=== PATIENT | male | born 1970 | race Caucasian/White ===

== ENCOUNTER 2022-01-18 15:58 | Emergency (ER) | payer OTHER ==
[~2022-01-18] VITALS: Ht 177.8 cm; Wt 113.0 kg
[2022-01-18 16:06] VITALS: BP 116/78
== END 2022-01-18 20:21 | disposition left against medical advice (07) ==
LOC: EDBD 15:58 → ER 16:02
DX: F41.9 Anxiety disorder, unspecified (principal); Z53.21 Procedure and treatment not carried out due to patient leaving prior to being seen by health care provider

== ENCOUNTER 2022-06-20 12:43 | Inpatient (IN) | payer OTHER, MEDICAID ==
[~2022-06-20] VITALS: Ht 182.9 cm; Wt 93.9 kg
[2022-06-20 14:03] LABS: Basophils # (auto) 0.1 10 ^3/uL (0-0.2); Basophils % (auto) 0.8 % (0.0-2.0); Eosinophils # (auto) 0.3 10 ^3/uL (0-0.8); Eosinophils % (auto) 2.7 % (0.0-7.0); Hematocrit 47.1 % (41.0-53.0); Hemoglobin 16.2 g/dL (13.5-17.5); Lymphocytes % (auto) 31.5 % (10.0-50.0); Mean Corpuscular Hemoglobin 33.9 pg (28.0-32.0); Mean Corpuscular Hgb Conc. 34.3 g/dL (32.0-36.0); Mean Corpuscular Volume 98.6 fL (80.0-100.0); Monocytes # (auto) 0.9 10 ^3/uL (0-1.3); Monocytes % (auto) 9.3 % (0.0-12.0); Neutrophils # (auto) 5.3 10 ^3/uL (1.6-8.6); Neutrophils % (auto) 55.7 % (37.0-80.0); Nucleated Red Blood Cells % 0.1 %; Red Blood Cells 4.78 10^6/uL (4.5-5.90); Red Cell Distribution Width 13.3 % (11.8-14.3); White Blood Cell 9.6 10^3/uL (4.4-10.8)
[2022-06-20 14:20] LABS: Albumin 3.8 g/dL (3.4-5.0); Calcium 11.6 mg/dL (8.5-10.1); Potassium 4.1 mmol/L (3.5-5.1)
[2022-06-20 14:23] LABS: BUN/Creatinine Ratio 15.8; Bilirubin, Total 0.5 mg/dL (0.2-1.0); Total Protein 6.5 g/dL (6.4-8.2)
[2022-06-20] MEDS ORDERED: NALOXONE HCL 1MG/ML 2ML SYRINGE ONE ×2 (14:48→17:28)
[2022-06-20] MEDS ORDERED: NALOXONE HCL 0.4 MG/ML VIAL IV ONE ×3 (15:00→17:30)
[2022-06-20] MEDS ORDERED: NALOXONE HCL 2 MG in DEXTROSE 495 ML IV ONE ×2 (17:45→20:30)
[2022-06-20 17:46] LABS: Amphetamine Screen, Urine NEGATIVE (NEGATIVE); Barbiturate Scree,Urine NEGATIVE (NEGATIVE); Benzodiazephine Screen, Urine POSITIVE (NEGATIVE); Cannabinoid Screen, Urine NEGATIVE (NEGATIVE)
[2022-06-20 17:53] LABS: Cocaine Screen, Urine NEGATIVE (NEGATIVE); Opiate Scree,Urine POSITIVE (NEGATIVE); Phencyclidine Screen, Urine NEGATIVE (NEGATIVE)
[2022-06-20 17:58] LABS: Urine Bacteria NONE SEEN /hpf (None Seen); Urine Blood Negative /uL (Negative); Urine Hyaline Cast FEW /lpf (0 - 2); Urine Mucus FEW (None Seen); Urine Specific Gravity 1.019 (1.001-1.035); Urine WBC 1 /hpf (0 - 3)
[2022-06-20] MEDS ORDERED: NALOXONE HCL 1MG/ML 2ML SYRINGE IV ONE (18:00)
[2022-06-20] MEDS ORDERED: ONDANSETRON HCL 4 MG/2 ML VIAL IV PRN (21:00)
[2022-06-20] MEDS ORDERED: hydrALAZINE HCL 20 MG/ML VL IV PRN (21:00)
[2022-06-20 22:04] LABS: Albumin 3.6 g/dL (3.4-5.0); Calcium 11.3 mg/dL (8.5-10.1)
[2022-06-20 22:07] LABS: Basophils # (auto) 0.1 10 ^3/uL (0-0.2); Basophils % (auto) 0.5 % (0.0-2.0); Eosinophils # (auto) 0.3 10 ^3/uL (0-0.8); Eosinophils % (auto) 2.3 % (0.0-7.0); Hematocrit 46.7 % (41.0-53.0); Hemoglobin 15.9 g/dL (13.5-17.5); Lymphocytes # (auto) 2.8 10 ^3/uL (0.4-5.4); Mean Corpuscular Hemoglobin 33.7 pg (28.0-32.0); Mean Corpuscular Hgb Conc. 33.9 g/dL (32.0-36.0); Mean Corpuscular Volume 99.2 fL (80.0-100.0); Monocytes # (auto) 1.1 10 ^3/uL (0-1.3); Monocytes % (auto) 8.7 % (0.0-12.0); Neutrophils # (auto) 8.4 10 ^3/uL (1.6-8.6); Neutrophils % (auto) 66.5 % (37.0-80.0); Nucleated Red Blood Cells % 0.2 %; Red Blood Cells 4.71 10^6/uL (4.5-5.90); Red Cell Distribution Width 13.9 % (11.8-14.3); White Blood Cell 12.6 10^3/uL (4.4-10.8)
[2022-06-20 22:08] LABS: BUN/Creatinine Ratio 14.9
[2022-06-20 22:11] LABS: INR 0.97 (0.9-1.15)
[2022-06-20 22:21] LABS: Bilirubin, Total 0.5 mg/dL (0.2-1.0); Total Protein 6.7 g/dL (6.4-8.2)
[2022-06-20] MEDS: SODIUM CHLORIDE 0.9% 1,000 ML IV SCH (23:48)
[2022-06-21] MEDS ORDERED: NALOXONE HCL 1MG/ML 2ML SYRINGE ONE ×2 (00:02→02:52)
[2022-06-21] MEDS: NALOXONE HCL 2 MG in DEXTROSE 495 ML IV SCH ×3 (00:19→03:10)
[2022-06-21] MEDS ORDERED: D5W 5% IV ONE ×3 (00:30→08:00)
[2022-06-21] MEDS ORDERED: ACETYLCYSTEINE IV ONE ×3 (00:30→08:00)
[2022-06-21 06:52] LABS: Calcium 10.7 mg/dL (8.5-10.1); Potassium 3.7 mmol/L (3.5-5.1)
[2022-06-21 06:54] LABS: BUN/Creatinine Ratio 13.6; Bilirubin, Total 0.7 mg/dL (0.2-1.0)
[2022-06-21] MEDS: SODIUM CHLORIDE 0.9% 1,000 ML IV SCH (07:00)
[2022-06-21] MEDS: levoFLOXacin 500MG 100 ML IV SCH (09:43)
[2022-06-21] MEDS: D5W/LACTATED RINGERS 1,000 ML IV SCH ×2 (14:15→22:15)
[2022-06-21] MEDS: D5W/SOD CHLO 0.9% 1,000 ML IV SCH ×2 (15:27→23:00)
[2022-06-21 17:47] LABS: Calcium 11.1 mg/dL (8.5-10.1); Potassium 3.6 mmol/L (3.5-5.1)
[2022-06-21 17:49] LABS: Albumin 3.1 g/dL (3.4-5.0); BUN/Creatinine Ratio 15.9
[2022-06-21 17:50] LABS: Acetaminophen < 2.0 ug/mL (10-30); Salicylate 6.6 mg/dL (2.8-20.0)
[2022-06-21 17:53] LABS: Bilirubin, Total 0.8 mg/dL (0.2-1.0); Total Protein 6.2 g/dL (6.4-8.2)
[2022-06-22] MEDS: D5W/LACTATED RINGERS 1,000 ML IV SCH (06:15)
[2022-06-22 06:39] LABS: Basophils # (auto) 0.1 10 ^3/uL (0-0.2); Eosinophils # (auto) 0.3 10 ^3/uL (0-0.8); Monocytes # (auto) 0.6 10 ^3/uL (0-1.3)
[2022-06-22 06:43] LABS: Basophils % (auto) 1.1 % (0.0-2.0); Eosinophils % (auto) 3.9 % (0.0-7.0); Hemoglobin 15.2 g/dL (13.5-17.5); Lymphocytes # (auto) 1.8 10 ^3/uL (0.4-5.4); Lymphocytes % (auto) 25.7 % (10.0-50.0); Mean Corpuscular Hemoglobin 34.5 pg (28.0-32.0); Mean Corpuscular Hgb Conc. 35.2 g/dL (32.0-36.0); Mean Corpuscular Volume 97.8 fL (80.0-100.0); Monocytes % (auto) 8.7 % (0.0-12.0); Neutrophils # (auto) 4.3 10 ^3/uL (1.6-8.6); Neutrophils % (auto) 60.6 % (37.0-80.0); Nucleated Red Blood Cells % 0.2 %; Red Cell Distribution Width 13.4 % (11.8-14.3); White Blood Cell 7.1 10^3/uL (4.4-10.8)
[2022-06-22] MEDS: D5W/SOD CHLO 0.9% 1,000 ML IV SCH ×3 (06:52→21:42)
[2022-06-22 06:59] LABS: Albumin 3.2 g/dL (3.4-5.0); Potassium 3.5 mmol/L (3.5-5.1)
[2022-06-22 07:03] LABS: BUN/Creatinine Ratio 15.4; Bilirubin, Total 0.6 mg/dL (0.2-1.0); Calcium 10.4 mg/dL (8.5-10.1)
[2022-06-22] MEDS: levoFLOXacin 500MG 100 ML IV SCH (08:35)
[2022-06-22] MEDS: GABAPENTIN 300 MG CAP PO SCH ×2 (14:00→21:41)
[2022-06-22] MEDS: traMADol HCL 50 MG TAB PO PRN ×2 (14:01→20:24)
[2022-06-22] MEDS: CELECOXIB 100 MG CAP PO SCH (21:41)
[2022-06-22 23:26] VITALS: BP 123/74
[2022-06-22] MEDS ORDERED: TRAZ50TA2 PO (23:53)
[2022-06-22] MEDS ORDERED: SERT50TA19 PO (23:54)
[2022-06-22] MEDS ORDERED: ASPI-498 OR (23:55)
[2022-06-22] MEDS ORDERED: NITR0.4S29 SL (23:56)
[2022-06-22] MEDS ORDERED: IBUP800T26 PO (23:57)
[2022-06-22] MEDS ORDERED: HYDR50TA69 PO (23:57)
[2022-06-22] MEDS ORDERED: OXYC-963 (23:57)
[2022-06-23] MEDS: GABAPENTIN 300 MG CAP PO SCH ×2 (05:00→14:10)
[2022-06-23 06:38] LABS: Potassium 3.7 mmol/L (3.5-5.1)
[2022-06-23 06:49] LABS: Albumin 3.2 g/dL (3.4-5.0); BUN/Creatinine Ratio 13.6; Bilirubin, Total 0.6 mg/dL (0.2-1.0); Calcium 10.7 mg/dL (8.5-10.1); Total Protein 5.6 g/dL (6.4-8.2)
[2022-06-23 09:00] VITALS: BP 140/83
[2022-06-23] MEDS: CELECOXIB 100 MG CAP PO SCH (09:47)
[2022-06-23] MEDS ORDERED: ENOXAPARIN SOD 40 MG/0.4 ML SYRINGE SC SCH (10:00)
[2022-06-23] MEDS ORDERED: DULoxetine HCL 30 MG CAP PO SCH (10:00)
[2022-06-23] MEDS ORDERED: FAMOTIDINE 20 MG TAB PO SCH (10:00)
[2022-06-23] MEDS ORDERED: CITALOPRAM HYDROBR 20 MG TAB PO SCH (10:00)
[2022-06-23] MEDS: traMADol HCL 50 MG TAB PO PRN (14:10)
[2022-06-23] MEDS: D5W/SOD CHLO 0.9% 1,000 ML IV SCH (14:11)
[2022-06-23] MEDS ORDERED: GABA300C10 PO (14:37)
[2022-06-23] MEDS ORDERED: IBUP800T26 PO (14:37)
[2022-06-23] MEDS ORDERED: SERT50TA19 PO (14:37)
[2022-06-23 19:39] VITALS: BP 111/74
== END 2022-06-23 20:45 | disposition home or self-care (01) | DRG 917 ==
LOC: ER 12:43 → EDBD 12:43 → TELE 21:15 → TELE-CENTR 06-22 21:25
PROVIDERS: ADMIT Nurse Practitioner Family; ATTEND Hospitalist
DX: T40.2X1A Poisoning by other opioids, accidental (unintentional), initial encounter (principal); G92.9 Unspecified toxic encephalopathy; E78.5 Hyperlipidemia, unspecified; I10 Essential (primary) hypertension; Z20.822 Contact with and (suspected) exposure to COVID-19; F32.A Depression, unspecified; G62.9 Polyneuropathy, unspecified; G89.29 Other chronic pain; I44.0 Atrioventricular block, first degree; Y92.89 Other specified places as the place of occurrence of the external cause
CPT/HCPCS: 36415; 70450; 71045; 72125; 80053; 80307; 80320; 80329; 81001; 82140; 82550; 83605; 84484; 85025; 85610; 87426; 93005; 93306; 96365; 96376; 99291; G0378; J1956; J7042; J7060

== ENCOUNTER 2022-09-06 10:27 | Emergency (ER) | payer OTHER, MEDICAID ==
[~2022-09-06] VITALS: Ht 180.3 cm; Wt 93.1 kg
[~2022-09-06 10:27] MED LIST: ASPI-498 OR; GABA300C10 PO; IBUP800T26 PO; OXYC-963; SERT50TA19 PO; TRAZ50TA2 PO
[2022-09-06 12:08] LABS: Basophils # (auto) 0.1 10 ^3/uL (0-0.2); Eosinophils # (auto) 0 10 ^3/uL (0-0.8); Eosinophils % (auto) 0.2 % (0.0-7.0); Hemoglobin 16.6 g/dL (13.5-17.5); Lymphocytes # (auto) 1.8 10 ^3/uL (0.4-5.4)
[2022-09-06 12:10] LABS: Basophils % (auto) 0.4 % (0.0-2.0); Hematocrit 46.2 % (41.0-53.0); Lymphocytes % (auto) 13.9 % (10.0-50.0); Mean Corpuscular Hemoglobin 34.7 pg (28.0-32.0); Mean Corpuscular Volume 96.4 fL (80.0-100.0); Monocytes # (auto) 0.4 10 ^3/uL (0-1.3); Monocytes % (auto) 3.3 % (0.0-12.0); Neutrophils # (auto) 10.5 10 ^3/uL (1.6-8.6); Neutrophils % (auto) 82.2 % (37.0-80.0); Nucleated Red Blood Cells % 1.1 %; Red Blood Cells 4.79 10^6/uL (4.5-5.90); Red Cell Distribution Width 13.8 % (11.8-14.3); White Blood Cell 12.8 10^3/uL (4.4-10.8)
[2022-09-06 12:23] LABS: Albumin 4.1 g/dL (3.4-5.0); Anion Gap 4 (5-15); Blood Alcohol < 3.0 mg/dL (0-5); Blood Urea Nitrogen 13 mg/dL (7-18); Calcium 11.9 mg/dL (8.5-10.1); Carbon Dioxide 25 mmol/L (21-32); Chloride 108 mmol/L (98-107); Glucose 101 mg/dL (74-106); Potassium 3.8 mmol/L (3.5-5.1); Sodium 137 mmol/L (136-145)
[2022-09-06 12:25] LABS: Salicylate 8.1 mg/dL (2.8-20.0)
[2022-09-06 12:27] LABS: Alanine Aminotransferase 32 U/L (16-61); Alkaline Phosphatase 94 U/L (45-117); Aspartate Aminotransferase 17 U/L (15-37); BUN/Creatinine Ratio 11.2 (10.0-20.0); Bilirubin, Total 0.8 mg/dL (0.2-1.0); GFR African American 85 mL/min; GFR Non-African American 70 mL/min; Total Protein 7.9 g/dL (6.4-8.2)
[2022-09-06 12:28] LABS: Acetaminophen < 2.0 ug/mL (10-30)
[2022-09-06 14:09] LABS: Urine Bacteria MANY /hpf (None Seen); Urine Blood Negative /uL (Negative); Urine Mucus FEW (None Seen); Urine Specific Gravity 1.014 (1.001-1.035); Urine Sperm PRESENT /hpf (None Seen); Urine WBC 24 /hpf (0 - 3)
[2022-09-06 14:38] LABS: Alcohol, Urine < 3.0 mg/dL (0-10); Amphetamine Screen, Urine NEGATIVE (NEGATIVE); Barbiturate Scree,Urine NEGATIVE (NEGATIVE); Benzodiazephine Screen, Urine NEGATIVE (NEGATIVE); Cannabinoid Screen, Urine NEGATIVE (NEGATIVE)
[2022-09-06 14:47] LABS: Cocaine Screen, Urine NEGATIVE (NEGATIVE); Opiate Scree,Urine POSITIVE (NEGATIVE); Phencyclidine Screen, Urine NEGATIVE (NEGATIVE)
[2022-09-06] MEDS ORDERED: cefTRIAXone SOD 1,000 MG VL IM ONE (17:45)
[2022-09-06 20:35] VITALS: BP 119/94
[2022-09-06] MEDS ORDERED: SERT50TA19 PO (20:40)
[2022-09-06] MEDS ORDERED: MIRT1TAB PO (20:40)
[2022-09-06] MEDS ORDERED: BUSP10TA90 PO (20:40)
[2022-09-06] MEDS ORDERED: MIRTAZAPINE 30 MG TAB PO ONE (22:00)
[2022-09-06] MEDS ORDERED: busPIRone HCL 10 MG TAB PO SCH (22:00)
== END 2022-09-06 20:57 | disposition home or self-care (01) ==
LOC: ER 10:27 → EDBD 10:27 → ER 20:57
DX: R45.851 Suicidal ideations (principal); F32.9 Major depressive disorder, single episode, unspecified; F41.9 Anxiety disorder, unspecified; R94.31 Abnormal electrocardiogram [ECG] [EKG]
CPT/HCPCS: 36415; 80053; 80307; 80320; 80329; 81001; 85025; 93005; 96372; 99284; J0696

== ENCOUNTER 2022-09-08 08:55 | Emergency (ER) | payer OTHER, MEDICAID ==
[~2022-09-08] VITALS: Ht 175.3 cm; Wt 100.0 kg
[~2022-09-08 08:55] MED LIST changes: +BUSP10TA90 PO; +MIRT1TAB PO
[2022-09-08 09:56] LABS: Amphetamine Screen, Urine NEGATIVE (NEGATIVE); Barbiturate Scree,Urine NEGATIVE (NEGATIVE); Benzodiazephine Screen, Urine NEGATIVE (NEGATIVE); Cannabinoid Screen, Urine NEGATIVE (NEGATIVE); Cocaine Screen, Urine NEGATIVE (NEGATIVE); Opiate Scree,Urine NEGATIVE (NEGATIVE); Phencyclidine Screen, Urine NEGATIVE (NEGATIVE)
[2022-09-08 10:23] LABS: Urine Bacteria FEW /hpf (None Seen); Urine Blood Negative /uL (Negative); Urine Hyaline Cast FEW /lpf (0 - 2); Urine Mucus FEW (None Seen); Urine Specific Gravity 1.021 (1.001-1.035); Urine WBC 17 /hpf (0 - 3)
[2022-09-08 10:34] LABS: Basophils # (auto) 0.1 10 ^3/uL (0-0.2); Eosinophils # (auto) 0.2 10 ^3/uL (0-0.8); Monocytes # (auto) 1.1 10 ^3/uL (0-1.3); Monocytes % (auto) 8.7 % (0.0-12.0); Neutrophils # (auto) 8.8 10 ^3/uL (1.6-8.6); Nucleated Red Blood Cells % 0.2 %
[2022-09-08 10:38] LABS: Basophils % (auto) 0.5 % (0.0-2.0); Eosinophils % (auto) 1.2 % (0.0-7.0); Hematocrit 46.3 % (41.0-53.0); Hemoglobin 16.6 g/dL (13.5-17.5); Lymphocytes # (auto) 2.7 10 ^3/uL (0.4-5.4); Lymphocytes % (auto) 21.3 % (10.0-50.0); Mean Corpuscular Hemoglobin 35.2 pg (28.0-32.0); Mean Corpuscular Hgb Conc. 35.9 g/dL (32.0-36.0); Mean Corpuscular Volume 97.9 fL (80.0-100.0); Neutrophils % (auto) 68.3 % (37.0-80.0); Red Blood Cells 4.73 10^6/uL (4.5-5.90); Red Cell Distribution Width 13.9 % (11.8-14.3); White Blood Cell 12.8 10^3/uL (4.4-10.8)
[2022-09-08 11:32] LABS: Potassium 3.4 mmol/L (3.5-5.1)
[2022-09-08 11:46] LABS: Salicylate 9.5 mg/dL (2.8-20.0)
[2022-09-08 11:56] LABS: Acetaminophen < 2.0 ug/mL (10-30)
[2022-09-08 12:09] LABS: Albumin 4.7 g/dL (3.4-5.0); Bilirubin, Total 0.7 mg/dL (0.2-1.0); Calcium 12.3 mg/dL (8.5-10.1); Total Protein 8.2 g/dL (6.4-8.2)
[2022-09-09] MEDS ORDERED: LORazepam 0.5 MG TAB PO ONE (05:45)
[2022-09-09] MEDS: LORazepam 0.5 MG TAB PO PRN ×2 (10:12→20:35)
[2022-09-09] MEDS: SERTRALINE HCL 50 MG TAB PO SCH (10:12)
[2022-09-09] MEDS ORDERED: KETOROLAC TROMETH 60MG/2ML VIAL IM ONE (10:15)
[2022-09-09] MEDS ORDERED: traZODone HCL 50 MG TAB PO ONE (22:00)
[2022-09-10] MEDS ORDERED: HYDROcodone-ACET 10/325MG TAB PO ONE (04:30)
[2022-09-10] MEDS ORDERED: ONDANSETRON ODT 4 MG TAB PO ONE (04:30)
[2022-09-10] MEDS: LORazepam 0.5 MG TAB PO PRN (09:02)
[2022-09-10] MEDS: SERTRALINE HCL 50 MG TAB PO SCH (10:57)
[2022-09-10] MEDS ORDERED: OXYCODONE W/ ACETAMINOPHEN 5/325MG TABLET PO ONE (15:00)
[2022-09-10 15:13] VITALS: BP 121/85
== END 2022-09-10 16:58 | disposition short-term general hospital (02) ==
LOC: EDBD 08:55 → ER 08:55
DX: F32.9 Major depressive disorder, single episode, unspecified (principal); F41.9 Anxiety disorder, unspecified; Z88.6 Allergy status to analgesic agent; Z79.899 Other long term (current) drug therapy
CPT/HCPCS: 36415; 80053; 80307; 80329; 81001; 84439; 84443; 85025; 96372; 99285; J1885; Q0162

== ENCOUNTER 2022-12-15 18:14 | Emergency (ER) | payer OTHER, MEDICAID ==
[~2022-12-15] VITALS: Ht 172.7 cm; Wt 113.0 kg
[~2022-12-15 18:14] MED LIST changes: +GABA-1250 PO; -GABA300C10 PO; +IBUP-1455 PO; -IBUP800T26 PO; +SERT-206 PO; -SERT50TA19 PO; +TRAZ-227 PO; -TRAZ50TA2 PO
[2022-12-16] MEDS ORDERED: KETOROLAC TROMETH 60MG/2ML VIAL IM ONE (02:30)
[2022-12-16] MEDS ORDERED: NAP500T PO (02:34)
[2022-12-16 02:38] VITALS: BP 118/72; PULSE 86; RESP 17; TEMP 98; O2SAT 98
== END 2022-12-16 03:10 | disposition home or self-care (01) ==
LOC: EDBD 18:14 → ER 18:14
DX: M72.2 Plantar fascial fibromatosis (principal); F41.9 Anxiety disorder, unspecified; F32.9 Major depressive disorder, single episode, unspecified; M10.9 Gout, unspecified; Z79.1 Long term (current) use of non-steroidal anti-inflammatories (NSAID); Z79.82 Long term (current) use of aspirin; Z79.899 Other long term (current) drug therapy
CPT/HCPCS: 36415; 84550; 96372; 99283; J1885

== ENCOUNTER 2023-04-19 13:56 | Emergency (ER) | payer OTHER, MEDICAID ==
[~2023-04-19] VITALS: Ht 180.3 cm; Wt 93.0 kg
[~2023-04-19 13:56] MED LIST changes: +NAP500T PO
[2023-04-19 14:37] LABS: Basophils # (auto) 0.1 10 ^3/uL (0-0.2); Eosinophils # (auto) 0.1 10 ^3/uL (0-0.8); Hemoglobin 16.1 g/dL (13.5-17.5); Monocytes # (auto) 0.5 10 ^3/uL (0-1.3); Neutrophils # (auto) 5.5 10 ^3/uL (1.6-8.6)
[2023-04-19 14:39] LABS: Eosinophils % (auto) 1.4 % (0.0-7.0); Hematocrit 45.7 % (41.0-53.0); Lymphocytes # (auto) 2.2 10 ^3/uL (0.4-5.4); Mean Corpuscular Hemoglobin 35.3 pg (28.0-32.0); Mean Corpuscular Hgb Conc. 35.2 g/dL (32.0-36.0); Monocytes % (auto) 6.1 % (0.0-12.0); Neutrophils % (auto) 65.5 % (37.0-80.0); Red Blood Cells 4.57 10^6/uL (4.5-5.90); Red Cell Distribution Width 12.9 % (11.8-14.3); White Blood Cell 8.3 10^3/uL (4.4-10.8)
[2023-04-19 15:00] LABS: Alanine Aminotransferase 32 U/L (7-40); Albumin 4.7 g/dL (3.2-4.8); Alkaline Phosphatase 49 U/L (46-116); Anion Gap 5 (5-15); Aspartate Aminotransferase 24 U/L (13-40); Bilirubin, Total 0.3 mg/dL (0.2-1.0); Blood Urea Nitrogen 15 mg/dL (9-23); Calcium 10.9 mg/dL (8.7-10.4); Carbon Dioxide 23 mmol/L (20-30); Chloride 108 mmol/L (98-107); Glucose 235 mg/dL (74-106); Potassium 3.7 mmol/L (3.5-5.1); Sodium 136 mmol/L (136-145); Total Protein 6.9 g/dL (5.7-8.2)
[2023-04-19] MEDS ORDERED: ONDANSETRON HCL 4 MG/2 ML VIAL IV ONE (15:30)
[2023-04-19 20:54] LABS: Urine Bacteria NONE SEEN /hpf (None Seen); Urine Blood 3+ /uL (Negative); Urine Clarity Clear (Clear); Urine Color Yellow (Yellow); Urine Hyaline Cast FEW /lpf (0 - 2); Urine Mucus FEW (None Seen); Urine Protein, UAD TRACE (Negative); Urine Specific Gravity 1.022 (1.001-1.035); Urine WBC 11 /hpf (0 - 3)
[2023-04-19] MEDS ORDERED: KETOROLAC TROMETH 30 MG/ML 1ML VIAL IV ONE (21:00)
[2023-04-19 21:08] VITALS: PULSE 69; RESP 18; O2SAT 97
[2023-04-19 22:27] VITALS: BP 115/53; PULSE 67; RESP 18; TEMP 98.8; O2SAT 97
== END 2023-04-20 00:02 | disposition short-term general hospital (02) ==
LOC: ER 13:56 → EDBD 13:56 → ER 04-20 00:02
DX: N13.30 Unspecified hydronephrosis (principal); R10.9 Unspecified abdominal pain; I10 Essential (primary) hypertension; F41.9 Anxiety disorder, unspecified; F32.9 Major depressive disorder, single episode, unspecified; M10.9 Gout, unspecified; E78.5 Hyperlipidemia, unspecified; F17.210 Nicotine dependence, cigarettes, uncomplicated; Z98.890 Other specified postprocedural states; Z79.899 Other long term (current) drug therapy
CPT/HCPCS: 36415; 74176; 80053; 81001; 85025; 96374; 96375; 99285; J1885; J2405

== ENCOUNTER 2023-08-30 11:00 | Emergency (ER) | payer OTHER, MEDICAID ==
[~2023-08-30] VITALS: Ht 175.3 cm; Wt 118.0 kg
[2023-08-30] MEDS: ALBUTEROL SULF 2.5 MG/0.5ML(0.5%) NEB SOLN HHN ONE (11:48)
[2023-08-30] MEDS: IPRATROPIUM BROM 0.5 MG/2.5ML INH SOL HHN ONE (11:48)
[2023-08-30 12:00] LABS: Basophils # (auto) 0.1 10 ^3/uL (0-0.2); Eosinophils # (auto) 0.3 10 ^3/uL (0-0.8); Lymphocytes # (auto) 1.9 10 ^3/uL (0.4-5.4); Monocytes # (auto) 0.7 10 ^3/uL (0-1.3)
[2023-08-30 12:02] LABS: Eosinophils % (auto) 3.2 % (0.0-7.0); Hematocrit 46.3 % (41.0-53.0); Hemoglobin 16.5 g/dL (13.5-17.5); Lymphocytes % (auto) 20.9 % (10.0-50.0); Mean Corpuscular Hemoglobin 35.7 pg (28.0-32.0); Mean Corpuscular Hgb Conc. 35.5 g/dL (32.0-36.0); Mean Corpuscular Volume 100.3 fL (80.0-100.0); Monocytes % (auto) 7.6 % (0.0-12.0); Neutrophils # (auto) 6.3 10 ^3/uL (1.6-8.6); Neutrophils % (auto) 67.3 % (37.0-80.0); Red Blood Cells 4.62 10^6/uL (4.5-5.90); Red Cell Distribution Width 13.4 % (11.8-14.3); White Blood Cell 9.3 10^3/uL (4.4-10.8)
[2023-08-30 12:15] LABS: Alanine Aminotransferase 42 U/L (7-40); Albumin 4.7 g/dL (3.2-4.8); Alkaline Phosphatase 56 U/L (46-116); Anion Gap 3 (5-15); Aspartate Aminotransferase 30 U/L (13-40); BUN/Creatinine Ratio 6.9 (10.0-20.0); Bilirubin, Total 0.3 mg/dL (0.2-1.0); Blood Urea Nitrogen 8 mg/dL (9-23); Calcium 11.6 mg/dL (8.5-10.1); Carbon Dioxide 28 mmol/L (20-30); Chloride 110 mmol/L (98-107); Glucose 130 mg/dL (74-106); Potassium 4.2 mmol/L (3.5-5.1); Sodium 141 mmol/L (136-145)
[2023-08-30] MEDS: methylPREDNISolone SOD SUCC 125 MG/2 ML VL ONE (12:42)
[2023-08-30] MEDS: methylPREDNISolone SOD SUCC 125 MG/2 ML VL IV ONE (12:43)
[2023-08-30] MEDS ORDERED: ALBUTEROL SULF 2.5 MG/0.5ML(0.5%) NEB SOLN NEB SCH ×2 (16:00→18:00)
[2023-08-30] MEDS ORDERED: IPRATROPIUM BROM 0.5 MG/2.5ML INH SOL NEB SCH ×2 (16:00→18:00)
[2023-08-30] MEDS: levoFLOXacin 500MG 100 ML IV ONE (16:46)
[2023-08-30 18:47] VITALS: PULSE 96; RESP 16; O2SAT 96
[2023-08-30 18:55] VITALS: BP 145/90; PULSE 100; RESP 20; TEMP 98.9; O2SAT 98
[2023-08-31] MEDS ORDERED: levoFLOXacin 500MG 100 ML IV SCH (10:00)
== END 2023-08-30 18:40 | disposition short-term general hospital (02) ==
LOC: EDBD 11:00 → ER 11:00
DX: J96.20 Acute and chronic respiratory failure, unspecified whether with hypoxia or hypercapnia (principal); J44.1 Chronic obstructive pulmonary disease with (acute) exacerbation; E78.5 Hyperlipidemia, unspecified; I10 Essential (primary) hypertension
CPT/HCPCS: 36415; 71045; 80053; 83880; 85025; 93005; 94644; 96365; 96375; 99285; J1956; J2930

== ENCOUNTER 2024-04-13 16:41 | Inpatient (IN) | payer OTHER, MEDICAID ==
[~2024-04-13] VITALS: Ht 177.8 cm; Wt 120.9 kg
--- NOTE | 2024-04-13 17:23 | ED.PDOC ---
Psychiatric HPI Comments 53y M who presents to the ED via EMS for chief complaint of mental health. Pt states he recently has been stressed due to girlfriend having cancer and states he is suicidal. Pt states he is having thoughts telling him to hurt himself. Pt told EMS "I will overdose on pills." Pt states he has previous suicidal attempt with prior inpatient psychiatric hospitalization. Pt denies any active homicidal ideations at this time. Pt has past psychiatric history of depression and anxiety.Pt noted to be tearful in the ED. Pt otherwise denies any other symptoms at this time. Chief Complaint: Suicidal Time Seen by MD: 17:20 Primary Care Provider: " I DON'T HAVE ONE" Reviewed Notes: [employer] Garment [employer]er Notes Information Source: Patient Mode of Arrival: EMS Past Medical History PAST MEDICAL HISTORY: Anxiety, Asthma, Depression, Gout, High Lipids, HTN, Kidney Stones, Thyroid Surgical History: Unknown Family History Family History: Family hx of Cancer Social History Smoker: Cigarettes Alcohol: Denies ETOH Use Drugs: Denies Drug Use Lives In: Home Constitutional: denies: chills, diaphoresis, fatigue, fever, malaise, sweats, weakness, others EENTM: denies: blurred vision, double vision, ear bleeding, ear discharge, ear drainage, ear pain, ear ringing, eye pain, eye redness, hearing loss, mouth pain, mouth swelling, nasal discharge, nose bleeding, nose congestion, nose pain, photophobia, tearing, throat pain, throat swelling, voice changes, others Respiratory: denies: cough, hemoptysis, orthopnea, SOB at rest, shortness of breath, SOB with excertion, stridor, wheezing, others Cardiovascular: denies: chest pain, dizzy spells, diaphoresis, Dyspnea on exertion, edema, irregular heart beat, left arm pain, lightheadedness, palpitations, PND, syncope, others Gastrointestinal: denies: abdomen distended, abdominal pain, blood streaked bowels, constipated, diarrhea, dysphagia, difficulty swallowing, hematemesis, melena, nausea, poor appetite, poor fluid intake, rectal bleeding, rectal pain, vomiting, others Genitourinary: denies: burning, dysuria, flank pain, frequency, hematuria, incontinence, penile discharge, penile sore, pain, testicle pain, testicle swelling, urgency, others Neurological: denies: dizziness, fainting, headache, left sided numbness, left sided weakness, numbness, paresthesia, pre-existing deficit, right sided numbness, right sided weakness, seizure, speech problems, tingling, tremors, we akness, others Musculoskeletal: denies: back pain, gout, joint pain, joint swelling, muscle pain, muscle stiffness, neck pain, others Integumetry: denies: bruises, change in color, change in hair/nails, dryness, laceration, lesions, lumps, rash, wounds, others Allergic/Immunocompromised: denies: Difficulty Healing, Frequent Infections, Hives, Itching, others Hematologic/Lymphatic: denies: anemia, blood clots, easy bleeding, easy bruising, swollen glands, others Endocrine: denies: excessive hunger, excessive sweating, excessive thirst, excessive urination, flushing, intolerance to cold, intolerance to heat, unexplained weight gain, unexplained weight loss, others Psychiatric: reports: suicidal; denies: anxiety, bipolar disorder, depression, hopeless, panic disorder, schizophrenia, sleepless, others All Other Systems: Reviewed and Negative Physical Exam General Appearance: No Apparent Distress, Obese HEENT: Normal ENT Inspection, Pharynx Normal, TMs Normal Neck: Full Range of Motion, Non-Tender, Normal, Normal Inspection Respiratory: Chest Non-Tender, Lungs Clear, No Accessory Muscle Use, No Respiratory Distress, Normal Breath Sounds Cardiovascular: No Edema, No JVD, No Murmur, No Gallop, Normal Peripheral Pulses, Regular Rate/Rhythm Breast Exam: Deferred Gastrointestinal: No Organomegaly, Non Tender, No Pulsatile Mass, Normal Bowel Sounds, Soft Genitalia: Epididymis Pelvic: Deferred Rectal: Deferred Extremities: No calf tenderness, Normal capillary refill, Normal inspection, Normal range of motion, Non-tender, No pedal edema Neurologic: Alert, Depressed Affect, No Motor Deficits, No Sensory Deficits Cerebellar Function: Normal Reflexes: Normal Skin: Dry, Normal Color, Warm Peripheral Pulses: 1+ carotid (R), 1+ carotid (L) Lymphatic: No Adenopathy Was a procedure done? Was a procedure done?: No Psych Differential Dx Psych. Differential Dx: Depression, Hopeless, Suicidal OD Differential Dx: Suicidal Gesture Other Differentail Dx drug use X-Ray, Labs, Meds, VS Vital Signs Date Time Temp Pulse Resp B/P (MAP) Pulse Ox O2 Delivery O2 Flow Rate FiO2 04/14/24 11:25 97.7 74 16 125/81 (96) 93 97.7 04/14/24 07:50 74 16 93 Room Air* 0 04/13/24 21:40 Room Air* 0 04/13/24 21:38 97.9 74 18 111/67 (82) 93 97.9 04/13/24 17:07 98.6 124 16 88/0 (29) 94 Lab Test 04/13/24 17:52 Range/Units White Blood Count 10.8 4.4-10.8 10^3/uL Red Blood Count 4.99 4.5-5.90 10^6/uL Hemoglobin 17.6 H 13.5-17.5 g/dL Hematocrit 49.8 41.0-53.0 % Mean Corpuscular Volume 99.7 80.0-100.0 fL Mean Corpuscular Hemoglobin 35.3 H 28.0-32.0 pg Mean Corpuscular Hemoglobin Concent 35.4 32.0-36.0 g/dL Red Cell Distribution Width 13.4 11.8-14.3 % Platelet Count 345 140-450 10^3/uL Mean Platelet Volume 7.6 6.9-10.8 fL Neutrophils (%) (Auto) 63.7 37.0-80.0 % Lymphocytes (%) (Auto) 25.6 10.0-50.0 % Monocytes (%) (Auto) 7.6 0.0-12.0 % Eosinophils (%) (Auto) 2.0 0.0-7.0 % Basophils (%) (Auto) 1.1 0.0-2.0 % Neutrophils # (Auto) 6.9 1.6-8.6 10 ^3/uL Lymphocytes # (Auto) 2.8 0.4-5.4 10 ^3/uL Monocytes # (Auto) 0.8 0-1.3 10 ^3/uL Eosinophils # (Auto) 0.2 0-0.8 10 ^3/uL Basophils # (Auto) 0.1 0-0.2 10 ^3/uL Nucleated Red Blood Cells 0.1 % Sodium Level 138 136-145 mmol/L Potassium Level 4.4 3.5-5.1 mmol/L Chloride Level 104 98-107 mmol/L Carbon Dioxide Level 26 20-31 mmol/L Anion Gap 8 5-15 Blood Urea Nitrogen 14 9-23 mg/dL Creatinine 1.29 0.700-1.30 mg/dL Glomerular Filtration Rate Calc 66 >90 mL/min BUN/Creatinine Ratio 10.9 10.0-20.0 Serum Glucose 128 H 74-106 mg/dL Calcium Level 13.2 *H 8.7-10.4 mg/dL Salicylates Level < 3.0 -30 mg/dL Acetaminophen Level < 2.0 L 10.0-20.0 UG/ML Plasma/Serum Blood Alcohol 3.6 <10 mg/dL Current Medications Medications (Trade) Dose Ordered Sig/Iftikhar Route Start Time Stop Time Status Last Admin Ketorolac Tromethamine (Toradol Injection) 60 mg ONCE ONCE IM 04/14/24 08:45 04/14/24 08:46 DC 04/14/24 08:49 Sodium Chloride 1,000 ml @ 1,000 mls/hr Q1H ONCE IVB 04/14/24 12:30 04/14/24 13:29 DC 04/14/24 14:33 Hydrocortisone Sodium Succinate (Solu-CORTEF INJECTION) 100 mg ONCE ONCE IV 04/14/24 12:30 04/14/24 12:31 DC 04/14/24 14:32 X-Ray, Labs, Meds, VS Comment Course in the emergency department eventful patient came in because of depression stress over her his girlfriend having cancer and suicidal ideation CBC is normal Acetaminophen level and salicylate level negative ETOH 3.6 Calcium 13.2 very elevated patient has been evaluated by Dr. Tamayo the psychiatrist who put him on a 5150 At this time the patient can not be transferred because of the hypercalcemia So we will keep the patient in the emergency department while correcting the calcium level Time of 1ST Reevaluation: 17:50 Reevaluation 1ST: Unchanged Time of 2ND Reevaluation: 12:30 Reevaluation 2ND: Unchanged Patient Education/Counseling: Diagnosis, Treatment Family Education/Counseling: No Family Present Departure 1 Departure Time of Disposition: 12:32 Impression: Primary Impression: Major depression Additional Impressions: Suicidal ideation Hypercalcemia Disposition: 30 STILL A PATIENT Condition: Serious Critical Care Note Critical Care Time?: No Stability Stability form required: Yes Comments Patient not stable at this time for transfer to a psychiatric hospital Heart Score Heart Score: Heart Score Response (Comments) Value History N/A 0 EKG N/A 0 Age 45-64 1 Risk Factors 1 or 2 risk factors 1 Troponin N/A 0 Total 2 I personally scribed for SHEREE LAWTON MD ([email or web address]) on 04/13/24 at 17:23. Electronically submitted by Remington Monk ([facility]). SHEREE LAWTON MD Apr 13, 2024 17:23 SANTIAGO BEARD MD Apr 14, 2024 12:33
[2024-04-13 18:29] LABS: Chloride 104 mmol/L (98-107); Potassium 4.4 mmol/L (3.5-5.1); Sodium 138 mmol/L (136-145)
[2024-04-13 18:30] LABS: Anion Gap 8 (5-15); Carbon Dioxide 26 mmol/L (20-31)
[2024-04-13 18:31] LABS: Basophils # (auto) 0.1 10 ^3/uL (0-0.2); Eosinophils # (auto) 0.2 10 ^3/uL (0-0.8); Hemoglobin 17.6 g/dL (13.5-17.5); Lymphocytes # (auto) 2.8 10 ^3/uL (0.4-5.4); Lymphocytes % (auto) 25.6 % (10.0-50.0); Monocytes # (auto) 0.8 10 ^3/uL (0-1.3); Nucleated Red Blood Cells % 0.1 %; Red Cell Distribution Width 13.4 % (11.8-14.3)
[2024-04-13 18:33] LABS: Basophils % (auto) 1.1 % (0.0-2.0); Hematocrit 49.8 % (41.0-53.0); Mean Corpuscular Hemoglobin 35.3 pg (28.0-32.0); Mean Corpuscular Hgb Conc. 35.4 g/dL (32.0-36.0); Mean Corpuscular Volume 99.7 fL (80.0-100.0); Monocytes % (auto) 7.6 % (0.0-12.0); Neutrophils # (auto) 6.9 10 ^3/uL (1.6-8.6); Neutrophils % (auto) 63.7 % (37.0-80.0); Platelet Count (auto) 345 10^3/uL (140-450); Red Blood Cells 4.99 10^6/uL (4.5-5.90); White Blood Cell 10.8 10^3/uL (4.4-10.8)
[2024-04-13 18:35] LABS: BUN/Creatinine Ratio 10.9 (10.0-20.0); Blood Alcohol 3.6 mg/dL (<10); Blood Urea Nitrogen 14 mg/dL (9-23); Glucose 128 mg/dL (74-106)
[2024-04-13 18:38] LABS: Acetaminophen < 2.0 UG/ML (10.0-20.0)
[2024-04-13 18:58] LABS: Calcium 13.2 mg/dL (8.7-10.4)
[2024-04-13 19:00] LABS: Salicylate < 3.0 mg/dL (-30)
--- NOTE | 2024-04-14 00:06 | DVHINCON2 ---
Date of Service if different f: Apr 14, 2024 Time of Service: 00:05 Consult Consult Note PSYCHIATRY ED NEW CONSULT HPI: 53 yo pt with PPH of depression and anxiety presents to ED BIBA for safety, psychiatric stabilization and possible med initiation/optimization in setting of depression, anxiety, and passive SI. Psychiatry consulted for safety evaluation and recommendations in context of current presentation Per pt, reports hx of chronic depression often mixed with anxiety, over past several weeks experiencing worsening depressed mood, hopelessness, helplessness, negative thoughts, isolation, loss of interest, excessive guilt, decreased energy, difficulty with concentration, poor sleep, anhedonia, amotivation and non-specific anxiety symptoms. Also intermittent SI that are fleeting, earlier had plan to OD on pills although no intent. Reports some interference with daily functioning. Reports primary stress as recent cancer dx of GF. No overt manic, psychotic, cognitive, dissociative phenomena, panic, or somatic symptoms noted. Pt currently does not have psychiatrist/therapist out in community although has sought outpt services in past. Currently not on any psychotropic agents for past several weeks due to "I lost my meds". Most recently rx'd abilify, effexor. Denies self medicating mood symptoms with ETOH, THC or IDU Never , no children, unemployed, lives with friend, no legal issues, limited support system noted. Unknown trauma hx. Unknown FH. No acute medical issues although complains of diffuse body aches. Denies hx of seizures/TBI, or recent head injuries, NKDA Does have hx of suicide attempts resulting in prior psych hospitalizations including most recent several weeks ago for SI. Denies history of violence, unprovoked aggression, or assaultive behaviors. Denies recent hx of impulsivity, attention seeking behaviors, anger outbursts, emotional dysregulation, mood reactivity or engaging in risky behaviors. Does not have access to firearms. Currently endorses passive SI. Denies HI. MSE: General Appearance/Behavior: Alert and awake; appears stated age, overweight, fair grooming and hygiene; calm and cooperative, no PMA/PMR Speech: coherent, rrr Thought Process: linear, logical, bit hopeless Thought Content: Abnormal Thoughts and Perceptions: None Homicidality / Violent Thoughts: None Suicidality: passive SI Hallucinations: denies AVH Delusions: denies paranoia, persecutory, or grandiose delusions Obsessions /compulsions : None Judgment and Insight: fair judgment with fair insight Mood & Affect: "depressed" with mood-congruent, constricted/restricted, appropriate Orientation: oriented to person, place, time Attention/Concentration: appears intact Memory: grossly intact Language: no unusual or inappropriate language A/P: 53 yo pt with PPH of depression and anxiety presents to ED BIBA for safety, psychiatric stabilization and possible med initiation/optimization in setting of depression, anxiety, and passive SI Pt is currently expressing some SI with moderate interference in daily functioning in context of several recent life stressors. Limited protective factors presently. Not on any psychotropics for past several which maybe contributing to current symptoms. No outpt MH services at present. Pt agrees to talk with staff instead of acting on any suicidal feelings while in ED. Thus, ac bashir risk is moderate and hence is appropriate for inpatient psychiatry admission. Pt will benefit from inpatient psych admission for safety, psychiatric stabilization and possible medication re-initiation. Pt willing to transfer to inpt psych hospitalization voluntarily. Consider 5150 hold for DTS only if needed for transfer or if no voluntary beds are available Primary Diagnosis: Adjustment disorder with depressed mood. Depressive disorder unspecified. R/o MDD, moderate Recommend vol transfer to inpt psych facility for higher level of care 1:1 sitter is recommended Recommend continuation of previous outpt med regimen - Abilify 5 mg po QD and Venlafaxine XR 150 mg QD - first dose of both meds in AM Risks/benefits/alternative treatments discussed, informed consent provided by pt If patient later refuses voluntary hospitalization or if no voluntary beds are available, please reconsult telepsych services to evaluate for 5150 hold. Reconsult telepsych services if pt requests to be discharged from ED prior to transfer Pt verbalized understanding and is receptive to above tx plan This case was discussed with ED nurse/provider and all parties in agreement with above tx plan Leonardo Khan MD Plan discussed with: Patient LEONARDO KHAN MD Apr 14, 2024 00:06
[2024-04-14 07:50] VITALS: PULSE 74; RESP 16; O2SAT 93
[2024-04-14] MEDS: VENLAFAXINE HCL 37.5mg XR cap PO ONE (08:42)
[2024-04-14] MEDS: KETOROLAC TROMETH 60MG/2ML VIAL IM ONE (08:49)
[2024-04-14] MEDS ORDERED: ONDANSETRON HCL 4 MG/2 ML VIAL IV PRN (13:15)
[2024-04-14] MEDS ORDERED: MAALOX PLUS or MAALOX 30 ML PO PRN (13:15)
[2024-04-14] MEDS ORDERED: HALOPERIDOL LACTATE 5 MG/ML INJ VIAL IM PRN (13:15)
[2024-04-14] MEDS ORDERED: TEMAZEPAM 15 MG CAP PO PRN (13:15)
[2024-04-14] MEDS ORDERED: NAPROXEN 500 MG TAB PO PRN (13:15)
[2024-04-14] MEDS: SODIUM CHLORIDE 0.9% 1,000 ML IV SCH (13:15)
--- NOTE | 2024-04-14 13:50 | DVH ---
CHEST RADIOGRAPH Indication: chest veiw Technique: Single frontal view of the chest was obtained COMPARISON: XY CHEST XRAY 1 VIEW on DOS: 08/30/23, CHEST XRAY 1 VIEW on DOS: 06/20/22, CXR1 on DOS: 06/20 FINDINGS: Lines and Tubes: None Lungs: Clear Pleura: No effusion. No pneumothorax. Cardiomediastinal contours: Unremarkable Bones: Unremarkable IMPRESSION: No acute disease.
--- NOTE | 2024-04-14 14:06 | DVHHP2 ---
History of Present Illness Reason for Visit: hypercalcemia History of Present Illness 53 yo came to the ed initially for the evaluation for SI patient was evaluated and seen by Psych patient was recommended for further evaluation with lab abnormalities showing hypercalcemia Review of Systems Constitutional: Yes: Weakness; No: Fever, Chills, Sweats, Malaise, Other Eyes: No: Pain, Vision change, Conjunctivae inflammation, Eyelid inflammation, Other, Redness ENT: No: Ear pain, Ear discharge, Nose pain, Nose discharge, Nose congestion, Mouth pain, Mouth swelling, Throat pain, Throat swelling, Other Respiratory: No: Cough, Dry, Shortness of breath, SOB with excertion, Wheezing, Hemoptysis, Pleuritic Pain, Sputum, Wheezing, Other Cardiovascular: No: Chest Pain, Palpitations, Orthopnea, Paroxysmal Noc. Dyspnea, Edema, Lt Headedness, Other Gastrointestinal: Abdominal Pain; No: Nausea, Vomiting, Diarrhea, Constipation, Melena, Hematochezia, Other Genitourinary: No Dysuria, No Frequency, No Incontinence, No Hematuria, No Retention, No Other Musculoskeletal: No: other, neck pain, shoulder pain, arm pain, back pain, hand pain, leg pain, foot pain Skin: No: Rash, Lesions, Jaundice, Bruising, Other Neurological: No: Weakness, Numbness, Incoordination, Change in speech, Confusion, Seizures, Other Allergies: Coded Allergies: No Known Drug Allergy (Verified Allergy, Unknown, 01/18/22) Medications Current Medications Medications Dose Ordered Sig/Iftikhar Route Start Time Stop Time Status Last Admin Dose Admin Haloperidol Lactate 5 mg Q8HPRN PRN IM 04/14/24 13:15 Sodium Chloride 1,000 ml @ 150 mls/hr Q6H40M IV 04/14/24 13:15 Venlafaxine HCl 150 mg DAILY PO 04/15/24 10:00 UNV Calcitonin Jackson 200 unit DAILY NA 04/14/24 13:15 UNV Lorazepam 0.5 mg Q6HP PRN PO 04/14/24 13:15 Al Hydrox/Mg Hydrox/Simethicone 30 ml Q6HP PRN PO 04/14/24 13:15 Docusate Sodium 100 mg BIDPRN PRN PO 04/14/24 13:15 Acetaminophen 650 mg Q6HP PRN PO 04/14/24 13:15 Temazepam 15 mg QHSP PRN PO 04/14/24 13:15 UNV Acetaminophen/ Hydrocodone Bitart 1 tab Q4HP PRN PO 04/14/24 13:15 Ondansetron HCl 4 mg Q4HP PRN IV 04/14/24 13:15 Morphine Sulfate 2 mg Q4HPRN PRN IV 04/14/24 13:15 Aspirin 81 mg DAILY PO 04/15/24 10:00 Buspirone HCl 10 mg BID PO 04/14/24 22:00 Gabapentin 300 mg TID PO 04/14/24 14:00 Naproxen 500 mg BID PRN PO 04/14/24 13:15 UNV Sertraline HCl 50 mg DAILY PO 04/15/24 10:00 UNV Trazodone HCl 50 mg DAILY PO 04/15/24 10:00 UNV Patient Own Medication 7.5 mg HS PO 04/14/24 22:00 UNV Exam Vital Signs Vital Signs Date Time Temp Pulse Resp B/P (MAP) Pulse Ox O2 Delivery O2 Flow Rate FiO2 04/14/24 11:25 97.7 74 16 125/81 (96) 93 97.7 04/14/24 07:50 Room Air* 0 21 General Appearance: Alert, Oriented X3 HEENT: Atraumatic Respiratory: Clear to auscultation, Normal air movement Cardiovascular: Regular rate, Normal S1 Abdominal: Normal bowel sounds, Soft Extremities: No clubbing, No cyanosis Skin: No rashes, No breakdown Neuro: Normal gait, Normal speech Psych/Mental Status: Mood NL Labs/Xrays Labs Test 04/13/24 17:52 Range/Units White Blood Count 10.8 4.4-10.8 10^3/uL Red Blood Count 4.99 4.5-5.90 10^6/uL Hemoglobin 17.6 H 13.5-17.5 g/dL Hematocrit 49.8 41.0-53.0 % Mean Corpuscular Volume 99.7 80.0-100.0 fL Mean Corpuscular Hemoglobin 35.3 H 28.0-32.0 pg Mean Corpuscular Hemoglobin Concent 35.4 32.0-36.0 g/dL Red Cell Distribution Width 13.4 11.8-14.3 % Platelet Count 345 140-450 10^3/uL Mean Platelet Volume 7.6 6.9-10.8 fL Neutrophils (%) (Auto) 63.7 37.0-80.0 % Lymphocytes (%) (Auto) 25.6 10.0-50.0 % Monocytes (%) (Auto) 7.6 0.0-12.0 % Eosinophils (%) (Auto) 2.0 0.0-7.0 % Basophils (%) (Auto) 1.1 0.0-2.0 % Neutrophils # (Auto) 6.9 1.6-8.6 10 ^3/uL Lymphocytes # (Auto) 2.8 0.4-5.4 10 ^3/uL Monocytes # (Auto) 0.8 0-1.3 10 ^3/uL Eosinophils # (Auto) 0.2 0-0.8 10 ^3/uL Basophils # (Auto) 0.1 0-0.2 10 ^3/uL Nucleated Red Blood Cells 0.1 % Sodium Level 138 136-145 mmol/L Potassium Level 4.4 3.5-5.1 mmol/L Chloride Level 104 98-107 mmol/L Carbon Dioxide Level 26 20-31 mmol/L Anion Gap 8 5-15 Blood Urea Nitrogen 14 9-23 mg/dL Creatinine 1.29 0.700-1.30 mg/dL Glomerular Filtration Rate Calc 66 >90 mL/min BUN/Creatinine Ratio 10.9 10.0-20.0 Serum Glucose 128 H 74-106 mg/dL Calcium Level 13.2 *H 8.7-10.4 mg/dL Salicylates Level < 3.0 -30 mg/dL Acetaminophen Level < 2.0 L 10.0-20.0 UG/ML Plasma/Serum Blood Alcohol 3.6 <10 mg/dL Assessment/Plan Assessment/Plan Admit Med/surge Hypercalcemia unknown source Calcemia > 13 Calcitonin single dose ordered repeat labs in the am SI r/o psych issues as related to electrolyte changes Depression SI Haldol prn q8 if needed for agitation Plan discussed with: Patient My Orders Orders - MELISSA CASTILLO MD Procedure Category Date Status Time Chest Xray 1 View XY 04/14/24 Logged 13:01 Haloperidol Lactate PHA 04/14/24 In Process Injection (Haldol) 13:15 Sodium Chloride 0.9% PHA 04/14/24 In Process 13:15 Venlafaxine PHA 04/15/24 Logged Hydrochloride 10:00 Calcitonin Nasal PHA 04/14/24 Logged [place] (Fortical Nasal 13:15 Admit ADMIT 04/14/24 Transmitted 13:01 Code Status CODE 04/14/24 Transmitted 13:01 Vital Signs LIDA 04/14/24 In Process 13:01 Review Orders With [facility] 04/14/24 In Process Adm. 13:01 Lorazepam Tablet PHA 04/14/24 In Process (Ativan Tablet) 13:15 Alum & Mag PHA 04/14/24 In Process Hydrox-Simethicone 13:15 Docusate Sodium PHA 04/14/24 In Process Capsule (Colace 13:15 Acetaminophen Tablet PHA 04/14/24 In Process (Tylenol Tablet) 13:15 Temazepam (Restoril) PHA 04/14/24 Logged 13:15 Notify Md Of Changes LIDA 04/14/24 In Process From Base 13:01 Advance Directive LIDA 04/14/24 In Process 13:01 Basic Metabolic Panel LAB 04/15/24 Verified 04:00 Complete Blood Count LAB 04/15/24 Verified 04:00 Patient Condition ORDERS 04/14/24 Transmitted 13:01 Allergies LIDA 04/14/24 In Process 13:01 Hydrocodone-Acet PHA 04/14/24 In Process 5/325mg Tab ([place] 13:15 Ondansetron Hcl PHA 04/14/24 In Process (Zofran) 13:15 Morphine Sulfate PHA 04/14/24 In Process Injection 13:15 Notify Md Of Changes [facility] 04/14/24 In Process From Base 13:01 Oxygen By Nasal RT 04/14/24 Transmitted Cannula 13:01 Aspirin Enteric PHA 04/15/24 In Process Coated Tablet 10:00 Buspirone Hcl Tablet PHA 04/14/24 In Process (Buspar Tablet) 22:00 Gabapentin Capsule PHA 04/14/24 In Process (Neurontin Capsule) 14:00 Naproxen Tablet PHA 04/14/24 Logged (Naprosyn Tablet) 13:15 Sertraline Hcl PHA 04/15/24 Logged (Zoloft) 10:00 Trazodone Hcl PHA 04/15/24 Logged (Desyrel) 10:00 (Nf) Mirtazapine PHA 04/14/24 Logged (Mirtazapine Oral 22:00 Problem List: (1) Hypercalcemia (2) Major depression (3) Suicidal ideation Date of Service: Apr 14, 2024 Billing Provider: MELISSA CASTILLO MD Common Visit Codes: [id number] INP/OBS CARE (HIGH) MELISSA CASTILLO MD Apr 14, 2024 14:06
[2024-04-14] MEDS: GABAPENTIN 300 MG CAP PO SCH (14:23)
[2024-04-14] MEDS ORDERED: CALCITONIN 400unit/2ml Vial (200unit/ml) SC ONE (14:30)
[2024-04-14] MEDS: HYDROCORTISONE SOD SUCC 100 MG/2ML INJ VIAL IV ONE (14:32)
[2024-04-14] MEDS: SODIUM CHLORIDE 0.9% 1,000 ML IVB ONE (14:33)
[2024-04-14] MEDS: CALCITONIN 400unit/2ml Vial (200unit/ml) SC ONE (14:56)
[2024-04-14] MEDS: MORPHINE SULFATE INJ 2 MG/ml SYRG IV PRN (16:43)
[2024-04-14] MEDS: LORazepam 0.5 MG TAB PO PRN (17:25)
[2024-04-14] MEDS: HYDROcodone-ACET 5/325MG TAB PO PRN (19:41)
[2024-04-14] MEDS: MIRTAZAPINE 30 MG TAB PO SCH (22:33)
[2024-04-14] MEDS: busPIRone HCL 10 MG TAB PO SCH (22:33)
[2024-04-14] MEDS: traZODone HCL 50 MG TAB PO SCH (22:33)
[2024-04-15 07:00] LABS: Basophils # (auto) 0.1 10 ^3/uL (0-0.2); Basophils % (auto) 0.8 % (0.0-2.0); Eosinophils # (auto) 0.2 10 ^3/uL (0-0.8); Hemoglobin 16.8 g/dL (13.5-17.5); Lymphocytes # (auto) 3.3 10 ^3/uL (0.4-5.4); Mean Corpuscular Hemoglobin 34.7 pg (28.0-32.0); Mean Corpuscular Hgb Conc. 35.1 g/dL (32.0-36.0); Monocytes # (auto) 0.8 10 ^3/uL (0-1.3); Neutrophils # (auto) 7.2 10 ^3/uL (1.6-8.6); Neutrophils % (auto) 62.2 % (37.0-80.0); Platelet Count (auto) 315 10^3/uL (140-450); Red Blood Cells 4.85 10^6/uL (4.5-5.90); Red Cell Distribution Width 13.4 % (11.8-14.3); White Blood Cell 11.6 10^3/uL (4.4-10.8)
[2024-04-15 07:02] LABS: Chloride 110 mmol/L (98-107)
[2024-04-15 07:07] LABS: Carbon Dioxide 22 mmol/L (20-31)
[2024-04-15 07:09] LABS: Calcium 11.4 mg/dL (8.7-10.4)
[2024-04-15 07:11] LABS: Blood Urea Nitrogen 18 mg/dL (9-23)
[2024-04-15 07:14] LABS: Glucose 99 mg/dL (74-106)
[2024-04-15 08:00] VITALS: PULSE 84; RESP 18; O2SAT 93
[2024-04-15 08:39] LABS: Anion Gap 10 (5-15); Sodium 142 mmol/L (136-145)
[2024-04-15] MEDS: VENLAFAXINE HCL 37.5mg XR cap PO SCH (09:51)
[2024-04-15] MEDS: ASPirin-EC 81 mg tab PO SCH (09:52)
[2024-04-15] MEDS: SERTRALINE HCL 50 MG TAB PO SCH (09:52)
--- NOTE | 2024-04-15 17:31 | DVHPNRES ---
Progress Note Date Seen: Apr 15, 2024 Resident Creating Document: ELIESER GUEVARABLANCA RESIDENT Medical Necessity Reason Pt with a Central, PICC or Fol: No Subjective Review of Systems Patient is a 53-year-old male with a past medical history of chronic depression and anxiety was brought to the ED for having suicidal ideation. Patient reports that for the past several weeks he was been experiencing worsening depression with depressed mood, anhedonia, sleep disturbances, loss of interest difficulty concentration. Patient reports that his recently liver cancer which acted as trigger for his worsening depression. Patient reported that he had intermittent suicidal ideation with plan to OD on pills although he was not that intent. Patient does not have any lopez symptoms. Patient reported that he does not have a psychiatrist but his primary care doctor is at the [facility]. Patient reported that he lost his medications Abilify and venlafaxine several weeks ago and has not been taking any depression medication since then. Past medical history: Chronic depression and anxiety Past surgical history: None reported Social history: Denies smoking, alcohol, drug use Home medication: Clonidine 0.1 mg, aspirin 81 mg, trazodone, atorvastatin 40 mg Review of systems Patient seen and examined at the bedside. Patient is alert and oriented to time, place and person. In the morning patient was agitated and did not want to talk. During the evening rounds patient's mood was better and he explained his current illness. Patient at this time did not have any suicidal ideation, reported that he feels anxious and was mood is depressed since past few weeks. Urine drug screen was negative. CBC showed WBC at 11.6, BMP showed elevated calcium and low phosphorus. Patient reported diffuse abdominal pain, bilateral lower extremity pain and tingling. Reported mild headache. No shortness of breath, no weakness, no chest pain, no nausea, vomiting, diarrhea. Objective vital signs Vital Sign Date Time Temp Pulse Resp B/P (MAP) Pulse Ox O2 Delivery O2 Flow Rate FiO2 04/15/24 16:50 70 16 130/82 04/15/24 16:00 95 04/15/24 08:00 Room Air* 0 21 04/15/24 08:00 97.7 97.7 Total Intake and Output 04/14/24 04/14/24 04/15/24 15:00 23:00 07:00 Intake Total 100 ml Balance 100 ml medications Current Medications Medications Dose Ordered Sig/Iftikhar Route Start Time Stop Time Status Last Admin Dose Admin Haloperidol Lactate 5 mg Q8HPRN PRN IM 04/14/24 13:15 Sodium Chloride 1,000 ml @ 150 mls/hr Q6H40M IV 04/14/24 13:15 04/15/24 17:00 150 MLS/HR Venlafaxine HCl 150 mg DAILY PO 04/15/24 10:00 04/15/24 09:51 150 MG Lorazepam 0.5 mg Q6HP PRN PO 04/14/24 13:15 04/15/24 09:08 0.5 MG Al Hydrox/Mg Hydrox/Simethicone 30 ml Q6HP PRN PO 04/14/24 13:15 Docusate Sodium 100 mg BIDPRN PRN PO 04/14/24 13:15 Acetaminophen 650 mg Q6HP PRN PO 04/14/24 13:15 Temazepam 15 mg QHSP PRN PO 04/14/24 13:15 Acetaminophen/ Hydrocodone Bitart 1 tab Q4HP PRN PO 04/14/24 13:15 04/14/24 19:41 1 TAB Ondansetron HCl 4 mg Q4HP PRN IV 04/14/24 13:15 Morphine Sulfate 2 mg Q4HPRN PRN IV 04/14/24 13:15 04/15/24 15:20 2 MG Aspirin 81 mg DAILY PO 04/15/24 10:00 04/15/24 09:52 81 MG Buspirone HCl 10 mg BID PO 04/14/24 22:00 04/15/24 09:52 10 MG Gabapentin 300 mg TID PO 04/14/24 14:00 04/15/24 14:16 300 MG Naproxen 500 mg BID PRN PO 04/14/24 13:15 Sertraline HCl 50 mg DAILY PO 04/15/24 10:00 04/15/24 09:52 50 MG Trazodone HCl 50 mg HS PO 04/14/24 22:00 04/14/24 22:33 50 MG Mirtazapine 7.5 mg HS PO 04/14/24 22:00 04/14/24 22:33 7.5 MG Examination Physical Examination Gen - no pallor, no icterus, no cyanosis, no clubbing, no LAD, no edema . Skin - Patients skin is warm and dry. Soles of feet have blackened tissue HEENT - normocephalic, atraumatic, dry mucous membranes. Neck - full ROM, no LAD, no JVD Pulmonary - B/L vesicular breath sounds. no crackles , no wheezing, no stridor. cardiovascular - normal S1,S2 heard. no murmurs heard. peripheral pulses normal radial 2+, pedal 2+. capillary refill normal <2 secs. GI - soft abdomen without tenderness to palpation . no hepatospleenomegaly. Bowel sounds normoactive Neurological - Patient is A/O X 3 . Bilateral upper extremity strength 5/5, bilateral lower extremity strength 5/5, no facial droop, normal speech, no tremor, no sensory deficiets. Patient reports depressed mood with anhedonia, sleep disturbances, agitation, anxiety, no current suicidal ideation. laboratory and microbiology Laboratory Tests 04/15/24 06:32 Test 04/15/24 06:32 Range/Units Serum Glucose 99 74-106 mg/dL Problem List/Assessment/Plan Problem List/Assessment/Plan Assessment and plan # Chronic depression with suicidal ideation - tele psych consulted who recommended - voluntary transfer to inpatient psych facility for higher level of care - 1:1 sitter is recommended - Recommend continuation of previous outpt med regimen - Abilify 5 mg po QD and Venlafaxine XR 150 mg QD - first dose of both meds in AM - Abilify not available in the hospital so patient was put on olanzapine 5 mg p.o. q.d. # Hypercalcemia - calcium 13.2--> 11.4 - phosphorus 1.3 - PTH pending - vitamin-D pending - patient given calcitonin 400 unit once - on IV fluids # history of recently diagnosed type 2 diabetes mellitus - blood glucose level within normal - patient on Accu-Checks # peripheral neuropathy - on gabapentin 300 mg t.i.d. Goals of care discussed with the patient for over 25 minutes. Full code Plan discussed with Dr. Weiss Plan discussed with: Patient My Orders My Orders Orders - SUMIT GUEVARA RESIDENT Procedure Category Date Status Time Vitamin D, 25-Hydroxy LAB 04/15/24 In Process 09:10 Urinalysis LAB 04/15/24 Logged 12:56 Drug Screen LAB 04/15/24 Logged 12:56 Olanzapine Tablet PHA 04/16/24 Verified (Zyprexa Tablet) 10:00 Date of Service: Apr 15, 2024 Billing Provider: KARINA LOPEZ MD Common Visit Codes: [id number] INP/OBS CARE(HIGH) SUMIT GUEVARA RESIDENT Apr 15, 2024 17:31 KARINA LOPEZ MD Apr 16, 2024 09:08
[2024-04-15 17:43] LABS: Urine Bacteria None Seen /hpf (None Seen)
[2024-04-15 18:06] LABS: Amphetamine Screen, Urine Neg (NEGATIVE); Barbiturate Scree,Urine Neg (NEGATIVE); Benzodiazephine Screen, Urine Neg (NEGATIVE); Cocaine Screen, Urine Neg (NEGATIVE); Urine Amorphous Crystal FEW /hpf (None Seen); Urine Blood Negative /uL (Negative); Urine Clarity Clear (Clear); Urine Color Light-Yellow (Yellow); Urine Protein, UAD Negative (Negative); Urine Specific Gravity 1.011 (1.001-1.035); Urine Urobilinogen 2 mg/dL (Negative); Urine WBC 1 /hpf (0 - 3)
[2024-04-15 18:07] LABS: Cannabinoid Screen, Urine Neg (NEGATIVE); Opiate Scree,Urine Neg (NEGATIVE); Phencyclidine Screen, Urine Neg (NEGATIVE)
--- NOTE | 2024-04-15 18:24 | DVH ---
INDICATION: difficulty urinating TECHNIQUE: Multiple real-time sonographic images of the kidneys and bladder were obtained. COMPARISON: None FINDINGS: RIGHT kidney measures 11.5 cm in length. 8 mm stone in the midpole. No hydronephrosis. LEFT kidney measures 12.1 cm in length. No hydronephrosis. No large intraluminal masses are seen in the bladder. Urinary bladder with slightly distended with volume measures 250 mL. Patient did not void during this procedure. IMPRESSION: 1. 8 mm stone in the midpole of the right kidney. No hydronephrosis. 2. Urinary bladder is slightly distended with an estimated volume of 250 mL. Correlate for urinary r etention.
[2024-04-15 18:30] VITALS: BP 130/72; PULSE 60; RESP 19; TEMP 98.5; O2SAT 93
[2024-04-15 21:00] VITALS: BP 126/69; PULSE 63; RESP 19; TEMP 98.6; O2SAT 92
[2024-04-16 00:21] VITALS: PULSE 60; RESP 19; O2SAT 93
[2024-04-16 01:00] VITALS: BP 144/76; PULSE 59; RESP 18; O2SAT 91
[2024-04-16] MEDS: DOCUSATE SOD 100 MG CAP PO PRN (02:00)
[2024-04-16] MEDS ORDERED: PNEUMOCOCCAL VACC POLYS 25 MCG/0.5 ML VIAL IM ONE (03:00)
[2024-04-16 05:00] VITALS: BP 134/80; PULSE 70; RESP 18; TEMP 98.6; O2SAT 100
[2024-04-16 06:43] LABS: Hemoglobin 16.6 g/dL (13.5-17.5); Lymphocytes # (auto) 3.2 10 ^3/uL (0.4-5.4); Red Blood Cells 4.81 10^6/uL (4.5-5.90); White Blood Cell 9.9 10^3/uL (4.4-10.8)
[2024-04-16 06:47] LABS: Basophils # (auto) 0.1 10 ^3/uL (0-0.2); Basophils % (auto) 1.3 % (0.0-2.0); Eosinophils # (auto) 0.3 10 ^3/uL (0-0.8); Eosinophils % (auto) 2.8 % (0.0-7.0); Lymphocytes % (auto) 32.3 % (10.0-50.0); Mean Corpuscular Hemoglobin 34.6 pg (28.0-32.0); Mean Corpuscular Hgb Conc. 34.7 g/dL (32.0-36.0); Mean Corpuscular Volume 99.7 fL (80.0-100.0); Monocytes # (auto) 0.8 10 ^3/uL (0-1.3); Monocytes % (auto) 7.6 % (0.0-12.0); Neutrophils # (auto) 5.5 10 ^3/uL (1.6-8.6); Nucleated Red Blood Cells % 0.1 %; Platelet Count (auto) 312 10^3/uL (140-450); Red Cell Distribution Width 13.5 % (11.8-14.3)
[2024-04-16 07:07] LABS: Alanine Aminotransferase 32 U/L (7-40); Albumin 4.2 g/dL (3.2-4.8); Alkaline Phosphatase 59 U/L (46-116); Anion Gap 9 (5-15); Aspartate Aminotransferase 20 U/L (13-40); BUN/Creatinine Ratio 12.8 (10.0-20.0); Blood Urea Nitrogen 14 mg/dL (9-23); Carbon Dioxide 22 mmol/L (20-31); Chloride 107 mmol/L (98-107); Cholesterol 190 mg/dL (< 200); Glucose 137 mg/dL (74-106); HDL Cholesterol 30 mg/dL (40-59); LDL Cholesterol 115 mg/dL (< 100); Phosphorus 1.5 mg/dL (2.4-5.1); Potassium 4.1 mmol/L (3.5-5.1); Sodium 138 mmol/L (136-145); Triglycerides 394 mg/dL (< 150)
[2024-04-16 07:08] LABS: Bilirubin, Total 0.4 mg/dL (0.2-1.0); Total Protein 6.4 g/dL (5.7-8.2)
[2024-04-16 08:20] VITALS: PULSE 64; RESP 20; O2SAT 97
[2024-04-16] MEDS: OLANZapine 5 MG TAB PO SCH (09:59)
[2024-04-16] MEDS ORDERED: DEXTROSE (50%) 50ML SYRG IV PRN (11:45)
[2024-04-16] MEDS: POLYETHYLENE GLYCOL 17 GM PWDR PO ONE (12:17)
--- NOTE | 2024-04-16 15:53 | DVHPNRES ---
Progress Note Date Seen: Apr 16, 2024 Resident Creating Document: MEDINA SCHWARTZ RESIDENT Medical Necessity Reason Pt with a Central, PICC or Fol: No Subjective Review of Systems Patient seen and examined at the bedside. He denied any suicidal ideation at this time, reported that he feels less anxious. Calcium levels she is coming down, currently at 11.0. Patient reported bilateral lower extremity pain and tingling. Reported mild headache. No shortness of breath, no weakness, no chest pain, no nausea, vomiting, urinary retention. Vitamin-D and PTH levels are still pending. Patient complains of constipation, provided MiraLax. Objective vital signs Vital Sign Date Time Temp Pulse Resp B/P (MAP) Pulse Ox O2 Delivery O2 Flow Rate FiO2 04/16/24 11:30 64 20 118/70 04/16/24 08:20 97 Room Air* 0 21 04/16/24 05:00 98.6 98.6 Total Intake and Output 04/15/24 04/15/24 04/16/24 15:00 23:00 07:00 Intake Total 1600 ml Balance 1600 ml medications Current Medications Medications Dose Ordered Sig/Iftikhar Route Start Time Stop Time Status Last Admin Dose Admin Haloperidol Lactate 5 mg Q8HPRN PRN IM 04/14/24 13:15 Sodium Chloride 1,000 ml @ 150 mls/hr Q6H40M IV 04/14/24 13:15 04/16/24 07:30 150 MLS/HR Venlafaxine HCl 150 mg DAILY PO 04/15/24 10:00 04/16/24 09:58 150 MG Lorazepam 0.5 mg Q6HP PRN PO 04/14/24 13:15 04/15/24 09:08 0.5 MG Al Hydrox/Mg Hydrox/Simethicone 30 ml Q6HP PRN PO 04/14/24 13:15 Docusate Sodium 100 mg BIDPRN PRN PO 04/14/24 13:15 04/16/24 02:00 100 MG Acetaminophen 650 mg Q6HP PRN PO 04/14/24 13:15 Acetaminophen/ Hydrocodone Bitart 1 tab Q4HP PRN PO 04/14/24 13:15 04/14/24 19:41 1 TAB Ondansetron HCl 4 mg Q4HP PRN IV 04/14/24 13:15 Morphine Sulfate 2 mg Q4HPRN PRN IV 04/14/24 13:15 04/16/24 11:30 2 MG Aspirin 81 mg DAILY PO 04/15/24 10:00 04/16/24 09:59 81 MG Gabapentin 300 mg TID PO 04/14/24 14:00 04/16/24 06:35 300 MG Naproxen 500 mg BID PRN PO 04/14/24 13:15 Trazodone HCl 50 mg HS PO 04/14/24 22:00 04/15/24 20:52 50 MG Olanzapine 5 mg DAILY PO 04/16/24 10:00 04/16/24 09:59 5 MG Tamsulosin HCl 0.4 mg QPM PO 04/16/24 18:00 Diagnostic Test (Pha) 1 strip ACHS 04/16/24 17:00 Insulin Human Regular ACHS SC 04/16/24 17:00 Dextrose 50 ml UD PRN IV 04/16/24 11:45 Examination General: Awake, alert, comfortable appearing, in no acute distress. HEENT: Head is normocephalic and atraumatic. Pupils are equal, round, and reactive to light. Extraocular muscles are intact. No nasal discharge. No facial trauma. Intraoral exam shows moist mucous membranes with no tonsillar enlargement or exudate. Neck: Supple with no cervical lymphadenopathy No meningismus. No goiter. Heart: Regular rate without murmur, rub, or gallop. Lungs: Equal breath sounds bilaterally with no wheezing, rales, or rhonchi. There is no chest wall tenderness or instability. Abdomen: No external sign of injury. Bowel sounds are present. Abdomen is soft, nontender. No rebound, no guarding, no rigidity. There are no palpable masses. There is no flank pain on exam. Extremities: Strong peripheral pulses. There is no clubbing, no cyanosis, and no edema. Skin: No rash. Neurologic: Cranial nerves II-XII intact without motor, sensory, or cerebellar deficit, no asterixis. Psychiatric: Patient reports depressed mood with anhedonia, sleep disturbances, agitation, anxiety, no current suicidal ideation. laboratory and microbiology Laboratory Tests 04/16/24 06:30 Test 04/16/24 06:30 Range/Units Serum Glucose 137 H 74-106 mg/dL Labs and/or images reviewed: Labs reviewed by me, Image(s) reviewed by me Problem List/Assessment/Plan Problem List/Assessment/Plan # Suicidal ideation # depression - tele psych consulted recommended voluntary hold with transfer to inpatient psych facility for higher level of care - 1:1 sitter is recommended - Recommend continuation of previous outpt med regimen - olanzapine 5 mg p.o. QD and Venlafaxine XR 150 mg QD # Hypercalcemia - calcium 13.2--> 11.4-> 11.0 - phosphorus 1.3 - PTH pending - vitamin-D pending - patient given calcitonin 400 unit once - on IV fluids # history of recently diagnosed type 2 diabetes mellitus - blood glucose level within normal - SSI mild # peripheral neuropathy - on gabapentin 300 mg t.i.d. # constipation Trial of MiraLax Goals of care discussed with the patient for over 25 minutes. Full code Plan discussed with Dr. Weiss Plan discussed with: Patient, Other (RN) My Orders My Orders Orders - MEDINA SCHWARTZ RESIDENT Procedure Category Date Status Time Tamsulosin PHA 04/16/24 In Process Hydrochloride (Flomax) 18:00 Glucose Blood PHA 04/16/24 In Process (Accu-Chek Comfort 17:00 Insulin R (Human) PHA 04/16/24 In Process (Insulin R) 17:00 Dextrose 50% Syringe PHA 04/16/24 In Process 11:45 Date of Service: Apr 16, 2024 Billing Provider: KARINA LOPEZ MD Common Visit Codes: [id number] INP/OBS CARE(HIGH) MEDINA SCHWARTZ RESIDENT Apr 16, 2024 15:53 KARINA LOPEZ MD Apr 24, 2024 00:35
[2024-04-16] MEDS: InsuLIN REG 1unit/0.01ml Soln (100units/ml) SC SCH (17:00)
[2024-04-16] MEDS: ACCU-CHEK COMFORT CURVE STRIP VI SCH (17:00)
[2024-04-16] MEDS: TAMSULOSIN HYDROCHLORIDE 0.4 MG CAP PO SCH (18:12)
[2024-04-16 20:00] VITALS: RESP 18; O2SAT 96
[2024-04-16 22:00] VITALS: BP 128/71; PULSE 83; RESP 18; TEMP 98; O2SAT 93
[2024-04-17] VITALS (7 sets, daily range): BP systolic 117–133; BP diastolic 60–82; PULSE 65–80; RESP 17–20; TEMP 97.7–98.8; O2SAT 91–97
[2024-04-17 07:10] LABS: Anion Gap 9 (5-15); Carbon Dioxide 24 mmol/L (20-31); Chloride 108 mmol/L (98-107); Potassium 4.1 mmol/L (3.5-5.1); Sodium 141 mmol/L (136-145)
[2024-04-17 07:11] LABS: Calcium 11.5 mg/dL (8.7-10.4)
[2024-04-17 07:16] LABS: BUN/Creatinine Ratio 9.9 (10.0-20.0); Blood Urea Nitrogen 11 mg/dL (9-23); Glucose 102 mg/dL (74-106)
[2024-04-17 10:38] LABS: Hepatitis B Surface Antigen Negative (Negative)
[2024-04-17 11:00] LABS: Hepatitis C Antibody Negative (Negative)
--- NOTE | 2024-04-17 11:18 | DVHINCON2 ---
Date of service: Apr 17, [address] Hurley Reason for Consultation Acute kidney injury, hypercalcemia and nephrolithiasis History of Present Illness Patient is 53-year-old obese male with past medical history of Anxiety, Asthma, Depression, Gout, High Lipids, HTN, Kidney Stones, and hypothyroidism is admitted with suicidal ideation. On admission patient found to have elevated calcium 13.2 and elevated creatinine nephrology is consulted Past Medical History Anxiety, Asthma, Depression, Gout, High Lipids, HTN, Kidney Stones, Thyroid Past Surgical History Patient denies Allergies: Coded Allergies: Thioridazine (Verified Allergy, Unknown, 04/17/24) Home Meds Active Scripts Naproxen (NAPROSYN TABLET) 500 Mg Tb, 1 TAB PO BID PRN, #30 TAB 0 Refills Prov:JOSE GILBERT 12/16/22 Mirtazapine (Mirtazapine Oral Disintegrating Tablet) 7.5 Mg Tab, 7.5 MG PO HS for 30 Days, #30 TAB Prov:AME BOWENS MD 09/06/22 Buspirone Hcl (Buspirone Hcl) 10 Mg Tab, 10 MG PO BID for 30 Days, #60 TAB Prov:AME BOWENS MD 09/06/22 Sertraline Hcl (Sertraline Hcl) 50 Mg Tab, 50 MG PO DAILY, #30 MG Prov:AME BOWENS MD 09/06/22 Gabapentin (Gabapentin) 300 Mg Cap, 2 CAP PO TID, #90 CAP 1 Refill Prov:LEXX KRUEGER MD 06/23/22 Ibuprofen Micronized (Ibuprofen) 800 Mg Tab, 1 TAB PO TID, #90 TAB Prov:LEXX KRUEGER MD 06/23/22 Reported Medications Oxycodone W/ Acetaminophen (Oxycodone/Acetaminophen 10-300 mg) 1 Tab Tab 06/22/22 Aspirin (ASPIRIN 81) 81 Mg Tab, 81 MG OR DAILY, TAB 06/22/22 Trazodone Hcl (Trazodone Hcl) 50 Mg Tab, 50 MG PO DAILY, TAB 06/22/22 Current Medications Current Medications Medications (Trade) Dose Ordered Sig/Iftikhar Route PRN Reason Start Time Stop Time Status Last Admin Tamsulosin HCl (Flomax) 0.4 mg QPM PO 04/16/24 18:00 04/16/24 18:12 Diagnostic Test (Pha) (Accu-Chek Comfort Curve T) 1 strip ACHS 04/16/24 17:00 04/17/24 11:30 Insulin Human Regular (InsuLIN R) ACHS SC 04/16/24 17:00 04/16/24 21:25 Family History: Anxiety disorder G8 MOTHER FH: breast cancer in first degree relative G8 MOTHER Review of Systems All 12 item review of systems reviewed with the patient nonsignificant except what is mentioned in the history of present illness H&P Exam Vital Signs/I&O Vital Sign Date Time Temp Pulse Resp B/P (MAP) Pulse Ox O2 Delivery O2 Flow Rate FiO2 04/17/24 15:57 69 18 117/77 04/17/24 13:00 98.1 91 98.1 04/17/24 07:30 Room Air* 0 21 Intake and Output 04/16/24 04/17/24 19:00 07:00 Intake Total 3000 ml 1888 ml Balance 3000 ml 1888 ml Intake Oral 1000 ml 1888 ml IV Total 2000 ml # Voids 3 6 Physical Exam Patient is awake alert in no acute distress Lungs clear to auscultation bilaterally Cardiac exam regular rate and rhythm GI soft nontender is normal Extremities no clubbing cyanosis or edema Neuro nonfocal Labs/Diagnostic Data Labs/Diagnostic Data Laboratory Tests Test 04/17/24 11:09 04/17/24 05:53 04/17/24 05:21 04/16/24 21:21 Range/Units POC Glucose 125 H 121 H 152 H 70-106 mg/dl Sodium Level 141 136-145 mmol/L Potassium Level 4.1 3.5-5.1 mmol/L Chloride Level 108 H 98-107 mmol/L Carbon Dioxide Level 24 20-31 mmol/L Anion Gap 9 5-15 Blood Urea Nitrogen 11 9-23 mg/dL Creatinine 1.11 0.700-1.30 mg/dL Glomerular Filtration Rate Calc 79 >90 mL/min BUN/Creatinine Ratio 9.9 L 10.0-20.0 Serum Glucose 102 74-106 mg/dL Calcium Level 11.5 H 8.7-10.4 mg/dL Phosphorus Level 2.3 L 2.4-5.1 mg/dL Magnesium Level 1.8 1.6-2.6 mg/dL Test 04/16/24 17:52 04/16/24 06:30 04/16/24 06:23 04/15/24 16:30 Range/Units POC Glucose 134 H 160 H 70-106 mg/dl White Blood Count 9.9 4.4-10.8 10^3/uL Red Blood Count 4.81 4.5-5.90 10^6/uL Hemoglobin 16.6 13.5-17.5 g/dL Hematocrit 48.0 41.0-53.0 % Mean Corpuscular Volume 99.7 80.0-100.0 fL Mean Corpuscular Hemoglobin 34.6 H 28.0-32.0 pg Mean Corpuscular Hemoglobin Concent 34.7 32.0-36.0 g/dL Red Cell Distribution Width 13.5 11.8-14.3 % Platelet Count 312 140-450 10^3/uL Mean Platelet Volume 7.3 6.9-10.8 fL Neutrophils (%) (Auto) 56.0 37.0-80.0 % Lymphocytes (%) (Auto) 32.3 10.0-50.0 % Monocytes (%) (Auto) 7.6 0.0-12.0 % Eosinophils (%) (Auto) 2.8 0.0-7.0 % Basophils (%) (Auto) 1.3 0.0-2.0 % Neutrophils # (Auto) 5.5 1.6-8.6 10 ^3/uL Lymphocytes # (Auto) 3.2 0.4-5.4 10 ^3/uL Monocytes # (Auto) 0.8 0-1.3 10 ^3/uL Eosinophils # (Auto) 0.3 0-0.8 10 ^3/uL Basophils # (Auto) 0.1 0-0.2 10 ^3/uL Nucleated Red Blood Cells 0.1 % Sodium Level 138 136-145 mmol/L Potassium Level 4.1 3.5-5.1 mmol/L Chloride Level 107 98-107 mmol/L Carbon Dioxide Level 22 20-31 mmol/L Anion Gap 9 5-15 Blood Urea Nitrogen 14 9-23 mg/dL Creatinine 1.09 0.700-1.30 mg/dL Glomerular Filtration Rate Calc 81 >90 mL/min BUN/Creatinine Ratio 12.8 10.0-20.0 Serum Glucose 137 H 74-106 mg/dL Hemoglobin A1c 6.6 H <5.7 % A1C Calcium Level 11.0 H 8.7-10.4 mg/dL Phosphorus Level 1.5 L 2.4-5.1 mg/dL Total Bilirubin 0.4 0.2-1.0 mg/dL Aspartate Amino Transferase (AST) 20 13-40 U/L Alanine Aminotransferase (ALT) 32 7-40 U/L Alkaline Phosphatase 59 46-116 U/L Total Protein 6.4 5.7-8.2 g/dL Albumin 4.2 3.2-4.8 g/dL Triglycerides Level 394 H < 150 mg/dL Cholesterol Level 190 < 200 mg/dL LDL Cholesterol 115 H < 100 mg/dL HDL Cholesterol 30 L 40-59 mg/dL Thyroid Stimulating Hormone (TSH) 1.39 0.55-4.78 uIU/mL Hepatitis B Surface Antigen Negative Negative Hepatitis C Antibody Negative Negative Urine Color Light-yellow Yellow Urine Clarity Clear Clear Urine pH 7.0 5.0-9.0 Urine Specific [place] 1.011 1.001-1.035 Urine Protein Negative Negative Urine Ketones Negative Negative Urine Blood Negative Negative /uL Urine Nitrite Negative Negative Urine Bilirubin Negative Negative Urine Urobilinogen 2 H Negative mg/dL Urine Leukocyte Esterase Negative Negative /uL Urine RBC None seen 0 - 3 /hpf Urine WBC 1 0 - 3 /hpf Urine Squamous Epithelial Cells None seen <5 /hpf Urine Amorphous Crystals Few None Seen /hpf Urine Bacteria None seen None Seen /hpf Urine Glucose Normal Normal mg/dL Urine Opiates Screen Neg NEGATIVE Urine Fentanyl Screen Neg NEGATIVE Urine Barbiturates Screen Neg NEGATIVE Urine Phencyclidine Screen Neg NEGATIVE Urine Amphetamines Screen Neg NEGATIVE Urine Benzodiazepines Screen Neg NEGATIVE Urine Cocaine Screen Neg NEGATIVE Urine Cannabinoids Screen Neg NEGATIVE Test 04/15/24 06:32 04/13/24 17:52 Range/Units White Blood Count 11.6 H 10.8 4.4-10.8 10^3/uL Red Blood Count 4.85 4.99 4.5-5.90 10^6/uL Hemoglobin 16.8 17.6 H 13.5-17.5 g/dL Hematocrit 48.0 49.8 41.0-53.0 % Mean Corpuscular Volume 99.0 99.7 80.0-100.0 fL Mean Corpuscular Hemoglobin 34.7 H 35.3 H 28.0-32.0 pg Mean Corpuscular Hemoglobin Concent 35.1 35.4 32.0-36.0 g/dL Red Cell Distribution Width 13.4 13.4 11.8-14.3 % Platelet Count 315 345 140-450 10^3/uL Mean Platelet Volume 7.5 7.6 6.9-10.8 fL Neutrophils (%) (Auto) 62.2 63.7 37.0-80.0 % Lymphocytes (%) (Auto) 28.0 25.6 10.0-50.0 % Monocytes (%) (Auto) 7.0 7.6 0.0-12.0 % Eosinophils (%) (Auto) 2.0 2.0 0.0-7.0 % Basophils (%) (Auto) 0.8 1.1 0.0-2.0 % Neutrophils # (Auto) 7.2 6.9 1.6-8.6 10 ^3/uL Lymphocytes # (Auto) 3.3 2.8 0.4-5.4 10 ^3/uL Monocytes # (Auto) 0.8 0.8 0-1.3 10 ^3/uL Eosinophils # (Auto) 0.2 0.2 0-0.8 10 ^3/uL Basophils # (Auto) 0.1 0.1 0-0.2 10 ^3/uL Nucleated Red Blood Cells 0.0 0.1 % Sodium Level 142 138 136-145 mmol/L Potassium Level 4.0 4.4 3.5-5.1 mmol/L Chloride Level 110 H 104 98-107 mmol/L Carbon Dioxide Level 22 26 20-31 mmol/L Anion Gap 10 8 5-15 Blood Urea Nitrogen 18 14 9-23 mg/dL Creatinine 1.00 1.29 0.700-1.30 mg/dL Glomerular Filtration Rate Calc 89 66 >90 mL/min BUN/Creatinine Ratio 18.0 10.9 10.0-20.0 Serum Glucose 99 128 H 74-106 mg/dL Calcium Level 11.4 H 13.2 *H 8.7-10.4 mg/dL Phosphorus Level 1.3 L 2.4-5.1 mg/dL Salicylates Level < 3.0 -30 mg/dL Acetaminophen Level < 2.0 L 10.0-20.0 UG/ML Plasma/Serum Blood Alcohol 3.6 <10 mg/dL Assessment Acute kidney injury superimposed Chronic Kidney Disease secondary hemodynamic mediated Hypercalcemia likely due to hyperparathyroidism, primary versus parathyroid adenoma Nonobstructing kidney stones Dehydration Hypophosphatemia due to hypercalcemia Anxiety Suicidal ideation Obesity Recommendations Closely monitor fluid and electrolytes Avoid nephrotoxic medications Strict I&Os I agree with IV fluid hydration Furosemide 40 mg IV q.day to increase calcium excretion Check parathyroid sestamibi nuclear medicine scan Do not replace phosphorus, it will come up when calcium is improving KCL replacement Psych consult We will continue to follow Patient seen and examined by myself. I discussed my plan of care with the patient and primary nurse at the bedside I would like to thank Dr. Hurley for the consult, will follow up Plan discussed with: Patient JARET BRONSON MD Apr 17, 2024 11:18
[2024-04-17 13:39] LABS: Magnesium 1.8 mg/dL (1.6-2.6)
[2024-04-17 13:41] LABS: Phosphorus 2.3 mg/dL (2.4-5.1)
--- NOTE | 2024-04-17 14:52 | DVHPNRES ---
Progress Note Date Seen: Apr 17, 2024 Resident Creating Document: JHJoseJGAY AgudeloWEN RESIDENT Medical Necessity Reason Pt with a Central, PICC or Fol: No Subjective Review of Systems Patient is a 53-year-old male with a past medical history of chronic depression and anxiety was brought to the ED for having suicidal ideation. Patient reports that for the past several weeks he was been experiencing worsening depression with depressed mood, anhedonia, sleep disturbances, loss of interest difficulty concentration. Patient reports that his recently liver cancer which acted as trigger for his worsening depression. Patient reported that he had intermittent suicidal ideation with plan to OD on pills although he was not that intent. Patient does not have any lopez symptoms. Patient reported that he does not have a psychiatrist but his primary care doctor is at the intersection of [place] and [facility]. Patient reported that he lost his medications Abilify and venlafaxine several weeks ago and has not been taking any depression medication since then. Past medical history: Chronic depression and anxiety Past surgical history: None reported Social history: Denies smoking, alcohol, drug use Home medication: Clonidine 0.1 mg, aspirin 81 mg, trazodone, atorvastatin 40 mg Review of systems Patient seen and examined at the bedside. Patient is alert and oriented to time, place and person. Patient denied any suicidal ideation reports that he feels better currently and less anxious. Patient does not report of headache, bilateral extremity pain and tingling has improved. Calcium level went from 11- >11.5. Nephrology consulted and noted parathyroid nuclear medicine scan, furosemide 40 mg IV once given to diurese. No shortness of breath, no weakness, no chest pain, no nausea, vomiting, diarrhea. Objective vital signs Vital Sign Date Time Temp Pulse Resp B/P (MAP) Pulse Ox O2 Delivery O2 Flow Rate FiO2 04/17/24 10:21 74 20 117/73 04/17/24 07:30 Room Air* 0 21 04/17/24 05:00 98.0 94 98.0 Total Intake and Output 04/16/24 04/16/24 04/17/24 14:59 22:59 06:59 Intake Total 1000 ml 2400 ml 1488 ml Balance 1000 ml 2400 ml 1488 ml medications Current Medications Medications Dose Ordered Sig/Iftikhar Route Start Time Stop Time Status Last Admin Dose Admin Haloperidol Lactate 5 mg Q8HPRN PRN IM 04/14/24 13:15 Sodium Chloride 1,000 ml @ 150 mls/hr Q6H40M IV 04/14/24 13:15 04/17/24 02:25 150 MLS/HR Venlafaxine HCl 150 mg DAILY PO 04/15/24 10:00 04/17/24 10:21 150 MG Lorazepam 0.5 mg Q6HP PRN PO 04/14/24 13:15 04/17/24 12:49 0.5 MG Al Hydrox/Mg Hydrox/Simethicone 30 ml Q6HP PRN PO 04/14/24 13:15 Docusate Sodium 100 mg BIDPRN PRN PO 04/14/24 13:15 04/16/24 02:00 100 MG Acetaminophen 650 mg Q6HP PRN PO 04/14/24 13:15 Acetaminophen/ Hydrocodone Bitart 1 tab Q4HP PRN PO 04/14/24 13:15 04/14/24 19:41 1 TAB Ondansetron HCl 4 mg Q4HP PRN IV 04/14/24 13:15 Morphine Sulfate 2 mg Q4HPRN PRN IV 04/14/24 13:15 04/17/24 10:21 2 MG Aspirin 81 mg DAILY PO 04/15/24 10:00 04/17/24 10:21 81 MG Gabapentin 300 mg TID PO 04/14/24 14:00 04/17/24 06:22 300 MG Naproxen 500 mg BID PRN PO 04/14/24 13:15 Trazodone HCl 50 mg HS PO 04/14/24 22:00 04/16/24 21:26 50 MG Olanzapine 5 mg DAILY PO 04/16/24 10:00 04/17/24 10:20 5 MG Tamsulosin HCl 0.4 mg QPM PO 04/16/24 18:00 04/16/24 18:12 0.4 MG Diagnostic Test (Pha) 1 strip ACHS 04/16/24 17:00 04/17/24 11:30 1 STRIP Insulin Human Regular ACHS SC 04/16/24 17:00 04/16/24 21:25 2 UNITS Dextrose 50 ml UD PRN IV 04/16/24 11:45 Examination Gen - no pallor, no icterus, no cyanosis, no clubbing, no LAD, no edema . Skin - Patients skin is warm and dry. Soles of feet have blackened tissue HEENT - normocephalic, atraumatic, dry mucous membranes. Neck - full ROM, no LAD, no JVD Pulmonary - B/L vesicular breath sounds. no crackles , no wheezing, no stridor. cardiovascular - normal S1,S2 heard. no murmurs heard. peripheral pulses normal radial 2+, pedal 2+. capillary refill normal <2 secs. GI - soft abdomen without tenderness to palpation . no hepatospleenomegaly. Bowel sounds normoactive Neurological - Patient is A/O X 3 . Bilateral upper extremity strength 5/5, bilateral lower extremity strength 5/5, no facial droop, normal speech, no tremor, no sensory deficiets. Patient reports depressed mood which has improved, mild anxiety, no current suicidal ideation. laboratory and microbiology Laboratory Tests 04/17/24 05:53 04/16/24 06:30 Test 04/17/24 05:53 Range/Units Serum Glucose 102 74-106 mg/dL Problem List/Assessment/Plan Problem List/Assessment/Plan Assessment and plan # Chronic depression with suicidal ideation - tele psych consulted who recommended - voluntary transfer to inpatient psych facility for higher level of care - 1:1 sitter is recommended - Recommend continuation of previous outpt med regimen - Abilify 5 mg po QD and Venlafaxine XR 150 mg QD - first dose of both meds in AM - Abilify not available in the hospital so patient was put on olanzapine 5 mg p.o. q.d. # Hypercalcemia - calcium 13.2--> 11.4-->11-->11.5 - phosphorus 1.3 - PTH pending - vitamin-D pending - patient given calcitonin 400 unit once - on IV fluids @ 150ml/hr - 04/[address] Veliz who recommended continuing with the IV fluid hydration and furosemide 40 mg IV Q day to increase calcium excretion. Parathyroid sestamibi nuclear medicine scan ordered. Avoid replacing phosphorus as August, when calcium is improving. # hypertriglyceridemia - atorvastatin 40 mg HS started # history of recently diagnosed type 2 diabetes mellitus - blood glucose level within normal - patient on Accu-Checks - on mild insulin sliding scale # peripheral neuropathy - on gabapentin 300 mg t.i.d. # constipation - on MiraLax Goals of care discussed with the patient for over 25 minutes. Full code Plan discussed with Dr. Weiss Plan discussed with: Patient My Orders My Orders Orders - SUMIT GUEVARA Procedure Category Date Status Time *Dr. Forman [facility] CONS 04/17/24 Transmitted -[facility] 10:53 Furosemide Injection PHA 04/17/24 Logged (Lasix Injection) 14:00 Date of Service: Apr 17, 2024 Billing Provider: KARINA LOPEZ MD Common Visit Codes: [id number] INP/OBS CARE([facility]) SUMIT GUEVARA Apr 17, 2024 14:52 KARINA LOPEZ MD Apr 24, 2024 00:24
[2024-04-17] MEDS: FUROSEMIDE 40 MG/4 ML VIAL IV ONE (18:03)
[2024-04-17] MEDS: ATORVASTATIN 20 MG TAB PO SCH (22:57)
[2024-04-18 05:21] VITALS: BP 108/72; PULSE 71; RESP 18; TEMP 97.5; O2SAT 97
[2024-04-18 06:25] LABS: Anion Gap 9 (5-15); Carbon Dioxide 24 mmol/L (20-31); Chloride 106 mmol/L (98-107); Potassium 4.1 mmol/L (3.5-5.1); Sodium 139 mmol/L (136-145)
[2024-04-18 06:26] LABS: Calcium 12.1 mg/dL (8.7-10.4)
[2024-04-18 06:31] LABS: BUN/Creatinine Ratio 9.6 (10.0-20.0); Blood Urea Nitrogen 11 mg/dL (9-23); Glucose 115 mg/dL (74-106)
[2024-04-18 06:33] LABS: Phosphorus 2.2 mg/dL (2.4-5.1)
[2024-04-18 06:55] LABS: Basophils # (auto) 0.1 10 ^3/uL (0-0.2); Basophils % (auto) 0.9 % (0.0-2.0); Eosinophils # (auto) 0.4 10 ^3/uL (0-0.8); Hematocrit 48.7 % (41.0-53.0); Hemoglobin 17.2 g/dL (13.5-17.5); Lymphocytes # (auto) 2.7 10 ^3/uL (0.4-5.4); Lymphocytes % (auto) 29.8 % (10.0-50.0); Mean Corpuscular Hemoglobin 35.3 pg (28.0-32.0); Mean Corpuscular Hgb Conc. 35.3 g/dL (32.0-36.0); Mean Corpuscular Volume 99.9 fL (80.0-100.0); Monocytes # (auto) 0.8 10 ^3/uL (0-1.3); Neutrophils # (auto) 5.1 10 ^3/uL (1.6-8.6); Neutrophils % (auto) 56.3 % (37.0-80.0); Nucleated Red Blood Cells % 0.1 %; Platelet Count (auto) 320 10^3/uL (140-450); Red Blood Cells 4.87 10^6/uL (4.5-5.90); Red Cell Distribution Width 13.4 % (11.8-14.3); White Blood Cell 9.1 10^3/uL (4.4-10.8)
[2024-04-18 08:29] VITALS: BP 106/72; PULSE 65; RESP 18; TEMP 98.2; O2SAT 90
[2024-04-18] MEDS: LACTULOSE 20Gm/30ML SOLN PO ONE (10:51)
[2024-04-18] MEDS: FUROSEMIDE 40 MG/4 ML VIAL IV ONE (10:51)
[2024-04-18 13:00] VITALS: BP 115/68; PULSE 76; RESP 20; TEMP 97.9; O2SAT 90
--- NOTE | 2024-04-18 13:19 | DVHPN2 ---
Progress Note Date Seen: Apr 18, 2024 Medical Necessity Reason Pt with a Central, PICC or Fol: No Subjective Patient reports: No new complaints Other Systems: Patient seen and Examined by myself on follow-up today Objective vital signs Vital Sign Date Time Temp Pulse Resp B/P (MAP) Pulse Ox O2 Delivery O2 Flow Rate FiO2 04/18/24 10:51 101/67 04/18/24 10:36 74 20 04/18/24 08:29 98.2 90 98.2 04/18/24 08:00 Room Air* 0 21 Total Intake and Output 04/17/24 04/17/24 04/18/24 15:00 23:00 07:00 Intake Total 1526 ml 1584 ml Balance 1526 ml 1584 ml medications Current Medications Medications Dose Ordered Sig/Iftikhar Route Start Time Stop Time Status Last Admin Dose Admin Haloperidol Lactate 5 mg Q8HPRN PRN IM 04/14/24 13:15 Venlafaxine HCl 150 mg DAILY PO 04/15/24 10:00 04/18/24 09:43 150 MG Lorazepam 0.5 mg Q6HP PRN PO 04/14/24 13:15 04/17/24 12:49 0.5 MG Al Hydrox/Mg Hydrox/Simethicone 30 ml Q6HP PRN PO 04/14/24 13:15 Docusate Sodium 100 mg BIDPRN PRN PO 04/14/24 13:15 04/16/24 02:00 100 MG Acetaminophen 650 mg Q6HP PRN PO 04/14/24 13:15 Acetaminophen/ Hydrocodone Bitart 1 tab Q4HP PRN PO 04/14/24 13:15 04/14/24 19:41 1 TAB Ondansetron HCl 4 mg Q4HP PRN IV 04/14/24 13:15 Morphine Sulfate 2 mg Q4HPRN PRN IV 04/14/24 13:15 04/18/24 09:44 2 MG Aspirin 81 mg DAILY PO 04/15/24 10:00 04/18/24 09:41 81 MG Gabapentin 300 mg TID PO 04/14/24 14:00 04/18/24 06:07 300 MG Naproxen 500 mg BID PRN PO 04/14/24 13:15 Trazodone HCl 50 mg HS PO 04/14/24 22:00 04/17/24 21:23 50 MG Olanzapine 5 mg DAILY PO 04/16/24 10:00 04/18/24 09:42 5 MG Tamsulosin HCl 0.4 mg QPM PO 04/16/24 18:00 04/17/24 18:03 0.4 MG Diagnostic Test (Pha) 1 strip ACHS 04/16/24 17:00 04/18/24 11:30 1 STRIP Insulin Human Regular ACHS SC 04/16/24 17:00 04/18/24 06:04 2 UNITS Dextrose 50 ml UD PRN IV 04/16/24 11:45 Atorvastatin Calcium 40 mg HS PO 04/17/24 22:00 04/17/24 22:57 40 MG Examination: LUNGS:Normal, CVS:Normal, MSK:Normal laboratory and microbiology Laboratory Tests 04/18/24 05:15 Test 04/18/24 05:15 Range/Units Serum Glucose 115 H 74-106 mg/dL Problem List/Assessment/Plan Problem List/Assessment/Plan Acute kidney injury superimposed Chronic Kidney Disease secondary hemodynamic mediated Hypercalcemia likely due to hyperparathyroidism, primary versus parathyroid adenoma Nonobstructing kidney stones Dehydration Hypophosphatemia due to hypercalcemia Anxiety Suicidal ideation Obesity Recommendations Kidney function is improving No urine output charted Strict I&Os I agree with IV fluid hydration Furosemide 40 mg IV q.day to increase calcium excretion Check parathyroid sestamibi nuclear medicine scan rule out adenoma versus hyperplasia Do not replace phosphorus, it will come up when calcium is improving KCL replacement Psych consult We will continue to follow Plan discussed with: Patient JARET BRONSON MD Apr 18, 2024 13:19
--- NOTE | 2024-04-18 15:00 | DVHPNRES ---
Progress Note Date Seen: Apr 18, 2024 Resident Creating Document: GAY GUEVARAWEN RESIDENT Medical Necessity Reason Pt with a Central, PICC or Fol: No Subjective Review of Systems Patient is a 53-year-old male with a past medical history of chronic depression and anxiety was brought to the ED for having suicidal ideation. Patient reports that for the past several weeks he was been experiencing worsening depression with depressed mood, anhedonia, sleep disturbances, loss of interest difficulty concentration. Patient reports that his recently liver cancer which acted as trigger for his worsening depression. Patient reported that he had intermittent suicidal ideation with plan to OD on pills although he was not that intent. Patient does not have any lopez symptoms. Patient reported that he does not have a psychiatrist but his primary care doctor is at the [facility] of [facility]. Patient reported that he lost his medications Abilify and venlafaxine several weeks ago and has not been taking any depression medication since then. Past medical history: Chronic depression and anxiety Past surgical history: None reported Social history: Denies smoking, alcohol, drug use Home medication: Clonidine 0.1 mg, aspirin 81 mg, trazodone, atorvastatin 40 mg Review of systems Patient seen and examined at the bedside. Patient is alert and oriented to time, place and person. Patient denied any suicidal ideation reports that he feels better currently and less anxious. Patient does not report of headache, bilateral extremity pain and tingling has improved. Calcium level went from 11->11.5-> 12.5. Nephrology consulted and noted parathyroid nuclear medicine scan, furosemide 40 mg IV once given to diurese. No shortness of breath, no weakness, no chest pain, no nausea, vomiting, diarrhea. Objective vital signs Vital Sign Date Time Temp Pulse Resp B/P (MAP) Pulse Ox O2 Delivery O2 Flow Rate FiO2 04/18/24 14:39 76 20 115/68 04/18/24 13:00 97.9 90 97.9 04/18/24 08:00 Room Air* 0 21 Total Intake and Output 04/17/24 04/17/24 04/18/24 15:00 23:00 07:00 Intake Total 1526 ml 1584 ml Balance 1526 ml 1584 ml medications Current Medications Medications Dose Ordered Sig/Iftikhar Route Start Time Stop Time Status Last Admin Dose Admin Haloperidol Lactate 5 mg Q8HPRN PRN IM 04/14/24 13:15 Venlafaxine HCl 150 mg DAILY PO 04/15/24 10:00 04/18/24 09:43 150 MG Lorazepam 0.5 mg Q6HP PRN PO 04/14/24 13:15 04/17/24 12:49 0.5 MG Al Hydrox/Mg Hydrox/Simethicone 30 ml Q6HP PRN PO 04/14/24 13:15 Docusate Sodium 100 mg BIDPRN PRN PO 04/14/24 13:15 04/16/24 02:00 100 MG Acetaminophen 650 mg Q6HP PRN PO 04/14/24 13:15 Acetaminophen/ Hydrocodone Bitart 1 tab Q4HP PRN PO 04/14/24 13:15 04/14/24 19:41 1 TAB Ondansetron HCl 4 mg Q4HP PRN IV 04/14/24 13:15 Morphine Sulfate 2 mg Q4HPRN PRN IV 04/14/24 13:15 04/18/24 14:39 2 MG Aspirin 81 mg DAILY PO 04/15/24 10:00 04/18/24 09:41 81 MG Gabapentin 300 mg TID PO 04/14/24 14:00 04/18/24 14:46 300 MG Naproxen 500 mg BID PRN PO 04/14/24 13:15 Trazodone HCl 50 mg HS PO 04/14/24 22:00 04/17/24 21:23 50 MG Olanzapine 5 mg DAILY PO 04/16/24 10:00 04/18/24 09:42 5 MG Tamsulosin HCl 0.4 mg QPM PO 04/16/24 18:00 04/17/24 18:03 0.4 MG Diagnostic Test (Pha) 1 strip ACHS 04/16/24 17:00 04/18/24 11:30 1 STRIP Insulin Human Regular ACHS SC 04/16/24 17:00 04/18/24 06:04 2 UNITS Dextrose 50 ml UD PRN IV 04/16/24 11:45 Atorvastatin Calcium 40 mg HS PO 04/17/24 22:00 04/17/24 22:57 40 MG Examination Gen - no pallor, no icterus, no cyanosis, no clubbing, no LAD, no edema . Skin - Patients skin is warm and dry. Soles of feet have blackened tissue HEENT - normocephalic, atraumatic, dry mucous membranes. Neck - full ROM, no LAD, no JVD Pulmonary - B/L vesicular breath sounds. no crackles , no wheezing, no stridor. cardiovascular - normal S1,S2 heard. no murmurs heard. peripheral pulses normal radial 2+, pedal 2+. capillary refill normal <2 secs. GI - soft abdomen without tenderness to palpation . no hepatospleenomegaly. Bowel sounds normoactive Neurological - Patient is A/O X 3 . Bilateral upper extremity strength 5/5, bilateral lower extremity strength 5/5, no facial droop, normal speech, no tremor, no sensory deficiets. Patient reports depressed mood which has improved, mild anxiety, no current suicidal ideation. laboratory and microbiology Laboratory Tests 04/18/24 05:15 Test 04/18/24 05:15 Range/Units Serum Glucose 115 H 74-106 mg/dL Problem List/Assessment/Plan Problem List/Assessment/Plan Assessment and plan # Chronic depression with suicidal ideation - tele psych consulted who recommended - voluntary transfer to inpatient psych facility for higher level of care - 1:1 sitter is recommended - Recommend continuation of previous outpt med regimen - Abilify 5 mg po QD and Venlafaxine XR 150 mg QD - first dose of both meds in AM - Abilify not available in the hospital so patient was put on olanzapine 5 mg p.o. q.d. # Hypercalcemia - calcium 13.2--> 11.4-->11-->11.5-->12.1 - phosphorus 2.2 - PTH elevated at 143 - vitamin-D pending - patient given calcitonin 400 unit once - on IV fluids @ 150ml/hr - 04/[address] Veliz who recommended continuing with the IV fluid hydration and furosemide 40 mg IV Q day to increase calcium excretion. Parathyroid sestamibi nuclear medicine scan showed No scintigraphic evidence for parathyroid adenoma in the neck. # hypertriglyceridemia - atorvastatin 40 mg HS started # history of recently diagnosed type 2 diabetes mellitus - blood glucose level within normal - patient on Accu-Checks - on mild insulin sliding scale # peripheral neuropathy - on gabapentin 300 mg t.i.d. # constipation - on MiraLax - lactulose 60mg given Goals of care discussed with the patient for over 25 minutes. Full code Plan discussed with Dr. Weiss Plan discussed with: Patient My Orders My Orders Orders - SUMIT GUEVARA Procedure Category Date Status Time Atorvastatin (Lipitor) PHA 04/17/24 In Process 22:00 Date of Service: Apr 18, 2024 Billing Provider: KARINA LOPEZ MD Common Visit Codes: [id number] INP/OBS CARE(HIGH) SUMIT GUEVARA RESIDENT Apr 18, 2024 15:00 KARINA LOPEZ MD Apr 24, 2024 00:17
--- NOTE | 2024-04-18 17:02 | DVH ---
Procedure: NM PARATHYROID Exam Date: 04/18/2024 10:03 AM. Clinical History: hypercalcemia, HPT r/o adenoma Comparison Study: CT scan of the cervical spine dated 06/21/2022. Nuclear Medicine Parathyroid Scan. Technique: Following the intravenous injection of 27.6 mCi of the Technetium 99m Sestamibi, AP images of the nec k were obtained at 10 minutes and 3 hours. A 3 hour delay image of the neck and chest is also obtain ed. Findings: There is the expected physiologic distribution of radiopharmaceutical. There is no abnormal focus of increased uptake to suggest a parathyroid adenoma in the neck and chest. Impression: 1. No scintigraphic evidence for parathyroid adenoma in the neck. 2. The previous CT scan of the cervical spine shows a 1.2 cm hypoechoic lesion along the posterior as pect of the inferior pole of the right thyroid lobe probably a thyroid nodule. Recommend further rachel luation by thyroid ultrasound.
[2024-04-18 17:35] VITALS: BP 112/80; PULSE 74; RESP 18; TEMP 97.9; O2SAT 90
[2024-04-18 20:00] VITALS: PULSE 76; RESP 18; O2SAT 98
[2024-04-18 21:00] VITALS: BP 110/70; PULSE 81; RESP 18; TEMP 97.9; O2SAT 97
[2024-04-19 01:00] VITALS: BP 120/72; PULSE 72; RESP 21; TEMP 98.2; O2SAT 94
[2024-04-19 04:42] VITALS: BP 112/72; PULSE 76; RESP 18; TEMP 97.7; O2SAT 95
[2024-04-19 05:55] LABS: Chloride 107 mmol/L (98-107); Sodium 140 mmol/L (136-145)
[2024-04-19 05:56] LABS: Anion Gap 6 (5-15); Calcium 12.4 mg/dL (8.7-10.4); Carbon Dioxide 27 mmol/L (20-31)
[2024-04-19 06:01] LABS: BUN/Creatinine Ratio 12.4 (10.0-20.0); Blood Urea Nitrogen 15 mg/dL (9-23); Glucose 114 mg/dL (74-106)
[2024-04-19 06:03] LABS: Phosphorus 2.3 mg/dL (2.4-5.1)
[2024-04-19 06:48] LABS: Urine Bacteria None Seen /hpf (None Seen)
[2024-04-19 07:14] LABS: Creatinine, Urine 93.11 mg/dL (30.0-125.0)
[2024-04-19 08:03] LABS: Urine Blood Negative /uL (Negative); Urine Clarity Clear (Clear); Urine Color Yellow (Yellow); Urine Protein, UAD Negative (Negative); Urine Specific Gravity 1.015 (1.001-1.035); Urine Urobilinogen 2 mg/dL (Negative); Urine WBC 1 /hpf (0 - 3)
[2024-04-19 09:00] VITALS: BP 120/71; PULSE 77; RESP 18; TEMP 98; O2SAT 95
[2024-04-19] MEDS: POLYETHYLENE GLYCOL 17 GM PWDR PO ONE (09:43)
[2024-04-19] MEDS: FLEET ENEMA(ADULT) 135 ML PR ONE (09:44)
[2024-04-19] MEDS: CALCITONIN 400unit/2ml Vial (200unit/ml) IM ONE (12:16)
--- NOTE | 2024-04-19 12:21 | DVHPN2 ---
Progress Note Date Seen: Apr 19, 2024 Medical Necessity Reason Pt with a Central, PICC or Fol: No Subjective Patient reports: No new complaints Other Systems: Patient seen and examined by myself on follow-up today Objective vital signs Vital Sign Date Time Temp Pulse Resp B/P (MAP) Pulse Ox O2 Delivery O2 Flow Rate FiO2 04/19/24 10:28 77 18 120/71 04/19/24 09:00 98.0 95 98.0 04/18/24 20:00 Room Air* 0 21 Total Intake and Output 04/18/24 04/18/24 04/19/24 14:59 22:59 06:59 Intake Total 450 ml 1585 ml 1700 ml Balance 450 ml 1585 ml 1700 ml medications Current Medications Medications Dose Ordered Sig/Iftikhar Route Start Time Stop Time Status Last Admin Dose Admin Haloperidol Lactate 5 mg Q8HPRN PRN IM 04/14/24 13:15 Venlafaxine HCl 150 mg DAILY PO 04/15/24 10:00 04/19/24 09:39 150 MG Lorazepam 0.5 mg Q6HP PRN PO 04/14/24 13:15 04/17/24 12:49 0.5 MG Al Hydrox/Mg Hydrox/Simethicone 30 ml Q6HP PRN PO 04/14/24 13:15 Docusate Sodium 100 mg BIDPRN PRN PO 04/14/24 13:15 04/18/24 21:40 100 MG Acetaminophen 650 mg Q6HP PRN PO 04/14/24 13:15 Acetaminophen/ Hydrocodone Bitart 1 tab Q4HP PRN PO 04/14/24 13:15 04/18/24 17:27 1 TAB Ondansetron HCl 4 mg Q4HP PRN IV 04/14/24 13:15 Morphine Sulfate 2 mg Q4HPRN PRN IV 04/14/24 13:15 04/19/24 10:28 2 MG Aspirin 81 mg DAILY PO 04/15/24 10:00 04/19/24 09:39 81 MG Gabapentin 300 mg TID PO 04/14/24 14:00 04/19/24 06:22 300 MG Naproxen 500 mg BID PRN PO 04/14/24 13:15 Trazodone HCl 50 mg HS PO 04/14/24 22:00 04/18/24 21:24 50 MG Olanzapine 5 mg DAILY PO 04/16/24 10:00 04/19/24 09:39 5 MG Tamsulosin HCl 0.4 mg QPM PO 04/16/24 18:00 04/18/24 17:26 0.4 MG Diagnostic Test (Pha) 1 strip ACHS 04/16/24 17:00 04/19/24 06:22 1 STRIP Insulin Human Regular ACHS SC 04/16/24 17:00 04/18/24 21:33 3 UNITS Dextrose 50 ml UD PRN IV 04/16/24 11:45 Atorvastatin Calcium 40 mg HS PO 04/17/24 22:00 04/18/24 21:24 40 MG Examination: LUNGS:Normal, CVS:Normal, MSK:Normal laboratory and microbiology Laboratory Tests 04/19/24 04:46 04/18/24 05:15 Test 04/19/24 04:46 Range/Units Serum Glucose 114 H 74-106 mg/dL Microbiology Date/Time Source Procedure Growth Status 04/17/24 10:30 Nose MRSA Screen - Final Complete Problem List/Assessment/Plan Problem List/Assessment/Plan Acute kidney injury superimposed Chronic Kidney Disease secondary hemodynamic mediated Hypercalcemia likely due to primary hyperparathyroidism Nonobstructing kidney stones Dehydration Hypophosphatemia due to hypercalcemia Anxiety Suicidal ideation Obesity Recommendations Kidney function kidney function resolved back to normal No urine output charted Strict I&Os I agree with IV fluid hydration Furosemide 40 mg IV q.day to increase calcium excretion parathyroid sestamibi nuclear medicine scan is negative for adenoma Do not replace phosphorus, it will come up when calcium is improving KCL replacement Psych consult Consider Surgery consult for parathyroidectomy due to persistent hypercalcemia Urology consult I will sign off this case, please refer to my office two weeks after discharge for Chronic Kidney Disease follow-up Thank you for the consult Plan discussed with: Patient JARET BRONSON MD Apr 19, 2024 12:21
[2024-04-19 12:32] VITALS: BP 107/69; PULSE 59; RESP 18; TEMP 98; O2SAT 95
[2024-04-19 17:00] VITALS: BP 111/70; PULSE 66; RESP 18; TEMP 98; O2SAT 94
[2024-04-19 21:00] VITALS: BP 120/80; PULSE 65; RESP 18; TEMP 98; O2SAT 96
--- NOTE | 2024-04-19 21:56 | DVHPNRES ---
Progress Note Date Seen: Apr 19, 2024 Resident Creating Document: JHJoseJELIESER AgudeloTADWONG RESIDENT Medical Necessity Reason Pt with a Central, PICC or Fol: No Subjective Review of Systems Patient is a 53-year-old male with a past medical history of chronic depression and anxiety was brought to the ED for having suicidal ideation. Patient reports that for the past several weeks he was been experiencing worsening depression with depressed mood, anhedonia, sleep disturbances, loss of interest difficulty concentration. Patient reports that his recently liver cancer which acted as trigger for his worsening depression. Patient reported that he had intermittent suicidal ideation with plan to OD on pills although he was not that intent. Patient does not have any lopez symptoms. Patient reported that he does not have a psychiatrist but his primary care doctor is at the intersection of [place] and [facility]. Patient reported that he lost his medications Abilify and venlafaxine several weeks ago and has not been taking any depression medication since then. Past medical history: Chronic depression and anxiety Past surgical history: None reported Social history: Denies smoking, alcohol, drug use Home medication: Clonidine 0.1 mg, aspirin 81 mg, trazodone, atorvastatin 40 mg Review of systems Patient seen and examined at the bedside. Patient is alert and oriented to time, place and person. Patient denied any suicidal ideation reports that he feels better currently and less anxious. Patient does not report of headache, bilateral extremity pain and tingling has improved. Calcium level went from 11->11.5-> 12.1->12.4. parathyroid nuclear medicine scan shows no adenoma. No shortness of breath, no weakness, no chest pain, no nausea, vomiting, diarrhea. Objective vital signs Vital Sign Date Time Temp Pulse Resp B/P (MAP) Pulse Ox O2 Delivery O2 Flow Rate FiO2 04/19/24 21:39 65 19 124/88 04/19/24 17:00 98.0 94 98.0 04/19/24 07:40 Room Air* 0 21 Total Intake and Output 04/18/24 04/18/24 04/19/24 15:00 23:00 07:00 Intake Total 450 ml 1585 ml 1700 ml Balance 450 ml 1585 ml 1700 ml medications Current Medications Medications Dose Ordered Sig/Iftikhar Route Start Time Stop Time Status Last Admin Dose Admin Haloperidol Lactate 5 mg Q8HPRN PRN IM 04/14/24 13:15 Venlafaxine HCl 150 mg DAILY PO 04/15/24 10:00 04/19/24 09:39 150 MG Lorazepam 0.5 mg Q6HP PRN PO 04/14/24 13:15 04/17/24 12:49 0.5 MG Al Hydrox/Mg Hydrox/Simethicone 30 ml Q6HP PRN PO 04/14/24 13:15 Docusate Sodium 100 mg BIDPRN PRN PO 04/14/24 13:15 04/18/24 21:40 100 MG Acetaminophen 650 mg Q6HP PRN PO 04/14/24 13:15 Acetaminophen/ Hydrocodone Bitart 1 tab Q4HP PRN PO 04/14/24 13:15 04/18/24 17:27 1 TAB Ondansetron HCl 4 mg Q4HP PRN IV 04/14/24 13:15 Morphine Sulfate 2 mg Q4HPRN PRN IV 04/14/24 13:15 04/19/24 21:39 2 MG Aspirin 81 mg DAILY PO 04/15/24 10:00 04/19/24 09:39 81 MG Gabapentin 300 mg TID PO 04/14/24 14:00 04/19/24 21:33 300 MG Naproxen 500 mg BID PRN PO 04/14/24 13:15 Trazodone HCl 50 mg HS PO 04/14/24 22:00 04/19/24 21:34 50 MG Olanzapine 5 mg DAILY PO 04/16/24 10:00 04/19/24 09:39 5 MG Tamsulosin HCl 0.4 mg QPM PO 04/16/24 18:00 04/19/24 17:40 0.4 MG Diagnostic Test (Pha) 1 strip ACHS 04/16/24 17:00 04/19/24 21:34 1 STRIP Insulin Human Regular ACHS SC 04/16/24 17:00 04/19/24 21:48 4 UNITS Dextrose 50 ml UD PRN IV 04/16/24 11:45 Atorvastatin Calcium 40 mg HS PO 04/17/24 22:00 04/19/24 21:34 40 MG Examination Gen - no pallor, no icterus, no cyanosis, no clubbing, no LAD, no edema . Skin - Patients skin is warm and dry. Soles of feet have blackened tissue HEENT - normocephalic, atraumatic, dry mucous membranes. Neck - full ROM, no LAD, no JVD Pulmonary - B/L vesicular breath sounds. no crackles , no wheezing, no stridor. cardiovascular - normal S1,S2 heard. no murmurs heard. peripheral pulses normal radial 2+, pedal 2+. capillary refill normal <2 secs. GI - soft abdomen without tenderness to palpation . no hepatospleenomegaly. Bowel sounds normoactive Neurological - Patient is A/O X 3 . Bilateral upper extremity strength 5/5, bilateral lower extremity strength 5/5, no facial droop, normal speech, no tremor, no sensory deficiets. Patient reports depressed mood which has improved, mild anxiety, no current suicidal ideation. laboratory and microbiology Laboratory Tests 04/19/24 04:46 04/18/24 05:15 Test 04/19/24 04:46 Range/Units Serum Glucose 114 H 74-106 mg/dL Microbiology Date/Time Source Procedure Growth Status 04/17/24 10:30 Nose MRSA Screen - Final Complete Problem List/Assessment/Plan Problem List/Assessment/Plan Assessment and plan # Chronic depression with suicidal ideation - tele psych consulted who recommended - voluntary transfer to inpatient psych facility for higher level of care - 1:1 sitter is recommended - Recommend continuation of previous outpt med regimen - Abilify 5 mg po QD and Venlafaxine XR 150 mg QD - first dose of both meds in AM - Abilify not available in the hospital so patient was put on olanzapine 5 mg p.o. q.d. # Hypercalcemia - calcium 13.2--> 11.4-->11-->11.5-->12.1-->12.4 - phosphorus 2.2 - PTH elevated at 143 - vitamin-D pending - patient given calcitonin 400 unit once - on IV fluids @ 150ml/hr - 04/[address] Veliz who recommended continuing with the IV fluid hydration and furosemide 40 mg IV Q day to increase calcium excretion. Parathyroid sestamibi nuclear medicine scan showed No scintigraphic evidence for parathyroid adenoma in the neck. - 04/19 Surgery consulted for evaluation for parathyroidectomy with suspected parathyroid hyperplasia. # hypertriglyceridemia - atorvastatin 40 mg HS started # history of recently diagnosed type 2 diabetes mellitus - blood glucose level within normal - patient on Accu-Checks - on mild insulin sliding scale # peripheral neuropathy - on gabapentin 300 mg t.i.d. # constipation - on MiraLax - lactulose 60mg given - Fleet enema given Goals of care discussed with the patient for over 25 minutes. Full code Plan discussed with Dr. Weiss Plan discussed with: Patient My Orders My Orders Orders - SUMIT GUEVARA Procedure Category Date Status Time * Surgical Consult CONS 04/19/24 Transmitted Dietary NOTICE 04/19/24 Transmitted Recommendations 15:12 Dietary Evaluation Review Comments: 1) Consider a CCHO 60g/2gm Na diet 2) Continue current plan of care Expected Outcomes/Goals: 1) Pt labs to improve 2) F/U in 3-5 days Date of Service: Apr 19, 2024 Billing Provider: KARINA LOPEZ MD Common Visit Codes: [id number] INP/OBS CARE(HIGH) SUMIT GUEVARA RESIDENT Apr 19, 2024 21:56 KARINA LOPEZ MD Apr 24, 2024 00:06
[2024-04-20] VITALS (7 sets, daily range): BP systolic 99–131; BP diastolic 56–82; PULSE 70–87; RESP 17–18; TEMP 97.9–98.4; O2SAT 94–98
[2024-04-20 06:27] LABS: Basophils # (auto) 0.1 10 ^3/uL (0-0.2); Lymphocytes # (auto) 2.5 10 ^3/uL (0.4-5.4); Neutrophils # (auto) 4.3 10 ^3/uL (1.6-8.6); White Blood Cell 7.9 10^3/uL (4.4-10.8)
[2024-04-20 06:29] LABS: Basophils % (auto) 1.2 % (0.0-2.0); Eosinophils # (auto) 0.3 10 ^3/uL (0-0.8); Eosinophils % (auto) 4.2 % (0.0-7.0); Hematocrit 48.7 % (41.0-53.0); Hemoglobin 17.1 g/dL (13.5-17.5); Lymphocytes % (auto) 31.8 % (10.0-50.0); Mean Corpuscular Hemoglobin 34.9 pg (28.0-32.0); Mean Corpuscular Volume 99.6 fL (80.0-100.0); Monocytes # (auto) 0.7 10 ^3/uL (0-1.3); Monocytes % (auto) 8.3 % (0.0-12.0); Neutrophils % (auto) 54.5 % (37.0-80.0); Platelet Count (auto) 295 10^3/uL (140-450); Red Blood Cells 4.89 10^6/uL (4.5-5.90); Red Cell Distribution Width 13.4 % (11.8-14.3)
[2024-04-20 06:33] LABS: Sodium 141 mmol/L (136-145)
[2024-04-20 06:34] LABS: Anion Gap 8 (5-15); Carbon Dioxide 26 mmol/L (20-31)
[2024-04-20 06:40] LABS: BUN/Creatinine Ratio 12.6 (10.0-20.0); Blood Urea Nitrogen 13 mg/dL (9-23)
[2024-04-20 06:47] LABS: Calcium 11.8 mg/dL (8.7-10.4); Chloride 107 mmol/L (98-107); Glucose 119 mg/dL (74-106)
[2024-04-20] MEDS: SODIUM CHLORIDE 0.9% 1,000 ML IV ONE (10:45)
--- NOTE | 2024-04-20 17:59 | DVHPNRES ---
Progress Note Date Seen: Apr 20, 2024 Resident Creating Document: JHJoseJELIESER AgudeloTADWONG RESIDENT Medical Necessity Reason Pt with a Central, PICC or Fol: No Subjective Review of Systems Patient is a 53-year-old male with a past medical history of chronic depression and anxiety was brought to the ED for having suicidal ideation. Patient reports that for the past several weeks he was been experiencing worsening depression with depressed mood, anhedonia, sleep disturbances, loss of interest difficulty concentration. Patient reports that his recently liver cancer which acted as trigger for his worsening depression. Patient reported that he had intermittent suicidal ideation with plan to OD on pills although he was not that intent. Patient does not have any lopez symptoms. Patient reported that he does not have a psychiatrist but his primary care doctor is at the intersection of [place] and [facility]. Patient reported that he lost his medications Abilify and venlafaxine several weeks ago and has not been taking any depression medication since then. Past medical history: Chronic depression and anxiety Past surgical history: None reported Social history: Denies smoking, alcohol, drug use Home medication: Clonidine 0.1 mg, aspirin 81 mg, trazodone, atorvastatin 40 mg Review of systems Patient seen and examined at the bedside. Patient is alert and oriented to time, place and person. Patient denied any suicidal ideation reports that he feels better currently and less anxious. Patient does not report of headache, bilateral extremity pain and tingling has improved. Calcium level went from 11->11.5-> 12.1->12.4-> 11.8. parathyroid nuclear medicine scan shows no adenoma. No shortness of breath, no weakness, no chest pain, no nausea, vomiting, diarrhea. reported having bowel movement after getting fleet enema. Objective vital signs Vital Sign Date Time Temp Pulse Resp B/P (MAP) Pulse Ox O2 Delivery O2 Flow Rate FiO2 04/20/24 16:13 98.2 87 17 131/82 (98) 94 98.2 04/20/24 08:00 Room Air* 0 21 Total Intake and Output 04/19/24 04/19/24 04/20/24 15:00 23:00 07:00 Intake Total 2600 ml 1800 ml Balance 2600 ml 1800 ml medications Current Medications Medications Dose Ordered Sig/Iftikhar Route Start Time Stop Time Status Last Admin Dose Admin Haloperidol Lactate 5 mg Q8HPRN PRN IM 04/14/24 13:15 Venlafaxine HCl 150 mg DAILY PO 04/15/24 10:00 04/20/24 09:37 150 MG Lorazepam 0.5 mg Q6HP PRN PO 04/14/24 13:15 04/17/24 12:49 0.5 MG Al Hydrox/Mg Hydrox/Simethicone 30 ml Q6HP PRN PO 04/14/24 13:15 Docusate Sodium 100 mg BIDPRN PRN PO 04/14/24 13:15 04/18/24 21:40 100 MG Acetaminophen 650 mg Q6HP PRN PO 04/14/24 13:15 Acetaminophen/ Hydrocodone Bitart 1 tab Q4HP PRN PO 04/14/24 13:15 04/20/24 09:40 1 TAB Ondansetron HCl 4 mg Q4HP PRN IV 04/14/24 13:15 Morphine Sulfate 2 mg Q4HPRN PRN IV 04/14/24 13:15 04/20/24 13:27 2 MG Aspirin 81 mg DAILY PO 04/15/24 10:00 04/20/24 09:37 81 MG Gabapentin 300 mg TID PO 04/14/24 14:00 04/20/24 14:34 300 MG Naproxen 500 mg BID PRN PO 04/14/24 13:15 Trazodone HCl 50 mg HS PO 04/14/24 22:00 04/19/24 21:34 50 MG Olanzapine 5 mg DAILY PO 04/16/24 10:00 04/20/24 09:37 5 MG Tamsulosin HCl 0.4 mg QPM PO 04/16/24 18:00 04/19/24 17:40 0.4 MG Diagnostic Test (Pha) 1 strip ACHS 04/16/24 17:00 04/20/24 13:12 1 STRIP Insulin Human Regular ACHS SC 04/16/24 17:00 04/20/24 13:20 2 UNITS Dextrose 50 ml UD PRN IV 04/16/24 11:45 Atorvastatin Calcium 40 mg HS PO 04/17/24 22:00 04/19/24 21:34 40 MG Examination Gen - no pallor, no icterus, no cyanosis, no clubbing, no LAD, no edema . Skin - Patients skin is warm and dry. Soles of feet have blackened tissue HEENT - normocephalic, atraumatic, dry mucous membranes. Neck - full ROM, no LAD, no JVD Pulmonary - B/L vesicular breath sounds. no crackles , no wheezing, no stridor. cardiovascular - normal S1,S2 heard. no murmurs heard. peripheral pulses normal radial 2+, pedal 2+. capillary refill normal <2 secs. GI - soft abdomen without tenderness to palpation . no hepatospleenomegaly. Bowel sounds normoactive Neurological - Patient is A/O X 3 . Bilateral upper extremity strength 5/5, bilateral lower extremity strength 5/5, no facial droop, normal speech, no tremor, no sensory deficiets. Patient reports depressed mood which has improved, mild anxiety, no current suicidal ideation. laboratory and microbiology Laboratory Tests 04/20/24 05:52 Test 04/20/24 05:52 Range/Units Serum Glucose 119 H 74-106 mg/dL Microbiology Date/Time Source Procedure Growth Status 04/17/24 10:30 Nose MRSA Screen - Final Complete Labs and/or images reviewed: Labs reviewed by me, Image(s) reviewed by me Problem List/Assessment/Plan Problem List/Assessment/Plan Assessment and plan # Chronic depression with suicidal ideation - tele psych consulted who recommended - voluntary transfer to inpatient psych facility for higher level of care - 1:1 sitter is recommended - Recommend continuation of previous outpt med regimen - Abilify 5 mg po QD and Venlafaxine XR 150 mg QD - first dose of both meds in AM - Abilify not available in the hospital so patient was put on olanzapine 5 mg p.o. q.d. # Hypercalcemia - calcium 13.2--> 11.4-->11-->11.5-->12.1-->12.4->11.8 - phosphorus 2.2 - PTH elevated at 143 - vitamin-D pending - patient given calcitonin 400 unit given on 04/14 and 04/19 - 1L NS given - 04/[address] Veliz who recommended continuing with the IV fluid hydration and furosemide 40 mg IV Q day to increase calcium excretion. Parathyroid sestamibi nuclear medicine scan showed No scintigraphic evidence for parathyroid adenoma in the neck. - 04/19 Surgery consulted for evaluation for parathyroidectomy with suspected parathyroid hyperplasia. - 04/20 - surgery recommended outpatient follow up with an endocrine surgery. # hypertriglyceridemia - atorvastatin 40 mg HS started # history of recently diagnosed type 2 diabetes mellitus - blood glucose level within normal - patient on Accu-Checks - on mild insulin sliding scale # peripheral neuropathy - on gabapentin 300 mg t.i.d. # constipation - on scheduled docusate and lactulose scheduled Goals of care discussed with the patient for 20 minutes: Full code Plan discussed with Dr. Goel Plan discussed with: Patient, Other (Nurse) My Orders My Orders Orders - SUMIT GUEVARA RESIDENT Procedure Category Date Status Time * Surgical Consult CONS 04/20/24 Transmitted 14:08 Dietary Evaluation Review Comments: 1) Consider a CCHO 60g/2gm Na diet 2) Continue current plan of care Expected Outcomes/Goals: 1) Pt labs to improve 2) F/U in 3-5 days Addendum Addendum Addendum I was physically present for the gal[place]iz portions of the service provided to patient by THE RESIDENT. I have reviewed the documentation, discussed the case with resident and agree with the resident's documentation except as noted. Also the patient's clinical case was discussed with the patient's nurse. This medical document was created using an electronic medical record system with computerized dictation system. Although this document has been carefully reviewed, there might still be some phonetic and typographical errors. These areas are purely typographical due to imperfections of the software programs, and do not reflect any compromise in the patient's medical care. Late signature. Date of Service: Apr 20, 2024 Billing Provider: JOHANNA GOEL MD Common Visit Codes: [id number] INP/OBS CARE(HIGH) Secondary Visit Codes: [id number] CARE PLAN 30 MINUTES (20 minutes) SUMIT GUEVARA RESIDENT Apr 20, 2024 17:59 JOHANNA GOEL MD Apr 22, 2024 14:16
[2024-04-20] MEDS: LACTULOSE 20Gm/30ML SOLN PO SCH (21:23)
[2024-04-20] MEDS: DOCUSATE SOD 100 MG CAP PO SCH (21:23)
[2024-04-21 05:00] VITALS: BP 124/77; PULSE 80; RESP 18; TEMP 97.5; O2SAT 91
[2024-04-21 08:00] VITALS: RESP 18
[2024-04-21 08:12] LABS: Anion Gap 10 (5-15); Carbon Dioxide 23 mmol/L (20-31); Potassium 4.1 mmol/L (3.5-5.1); Sodium 140 mmol/L (136-145)
[2024-04-21 08:14] LABS: Calcium 11.8 mg/dL (8.7-10.4); Chloride 107 mmol/L (98-107)
[2024-04-21 08:18] LABS: Blood Urea Nitrogen 10 mg/dL (9-23); Glucose 120 mg/dL (74-106)
[2024-04-21 08:33] LABS: Phosphorus 1.9 mg/dL (2.4-5.1)
[2024-04-21 09:00] VITALS: BP 99/68; PULSE 90; RESP 18; TEMP 98; O2SAT 98
[2024-04-21 13:00] VITALS: BP 101/69; PULSE 89; RESP 20; TEMP 98.4; O2SAT 96
[2024-04-21] MEDS ORDERED: CALCITONIN 400unit/2ml Vial (200unit/ml) IM ONE (14:45)
[2024-04-21 17:00] VITALS: BP 115/63; PULSE 72; RESP 18; TEMP 98.1; O2SAT 94
[2024-04-21] MEDS: SODIUM CHLORIDE 0.9% 1,000 ML IV ONE (18:30)
[2024-04-21] MEDS: FUROSEMIDE 40 MG/4 ML VIAL IV ONE (18:30)
--- NOTE | 2024-04-21 18:30 | DVHPNRES ---
Progress Note Date Seen: Apr 21, 2024 Resident Creating Document: ELIESER GUEVARABLANCA RESIDENT Medical Necessity Reason Pt with a Central, PICC or Fol: No Subjective Review of Systems Patient is a 53-year-old male with a past medical history of chronic depression and anxiety was brought to the ED for having suicidal ideation. Patient reports that for the past several weeks he was been experiencing worsening depression with depressed mood, anhedonia, sleep disturbances, loss of interest difficulty concentration. Patient reports that his recently liver cancer which acted as trigger for his worsening depression. Patient reported that he had intermittent suicidal ideation with plan to OD on pills although he was not that intent. Patient does not have any lopez symptoms. Patient reported that he does not have a psychiatrist but his primary care doctor is at the intersection of [place] and [facility]. Patient reported that he lost his medications Abilify and venlafaxine several weeks ago and has not been taking any depression medication since then. Past medical history: Chronic depression and anxiety Past surgical history: None reported Social history: Denies smoking, alcohol, drug use Home medication: Clonidine 0.1 mg, aspirin 81 mg, trazodone, atorvastatin 40 mg Review of systems Patient seen and examined at the bedside. Patient is alert and oriented to time, place and person. Patient denied any suicidal ideation reports that he feels better currently and less anxious. Patient does not report of headache, bilateral extremity pain and tingling has improved. Calcium level went from 11->11.5-> 12.1->12.4-> 11.8->11.8. parathyroid nuclear medicine scan shows no adenoma. No shortness of breath, no weakness, no chest pain, no nausea, vomiting, diarrhea. reported bowel movement regular . Objective vital signs Vital Sign Date Time Temp Pulse Resp B/P (MAP) Pulse Ox O2 Delivery O2 Flow Rate FiO2 04/21/24 17:42 68 18 101/65 04/21/24 09:00 98.0 98 98.0 04/21/24 08:00 Room Air* 0 21 Total Intake and Output 04/20/24 04/20/24 04/21/24 15:00 23:00 07:00 Intake Total 700 ml 1650 ml 1300 ml Balance 700 ml 1650 ml 1300 ml medications Current Medications Medications Dose Ordered Sig/Iftikhar Route Start Time Stop Time Status Last Admin Dose Admin Haloperidol Lactate 5 mg Q8HPRN PRN IM 04/14/24 13:15 Venlafaxine HCl 150 mg DAILY PO 04/15/24 10:00 04/21/24 10:14 150 MG Lorazepam 0.5 mg Q6HP PRN PO 04/14/24 13:15 04/17/24 12:49 0.5 MG Al Hydrox/Mg Hydrox/Simethicone 30 ml Q6HP PRN PO 04/14/24 13:15 Acetaminophen 650 mg Q6HP PRN PO 04/14/24 13:15 Acetaminophen/ Hydrocodone Bitart 1 tab Q4HP PRN PO 04/14/24 13:15 04/21/24 12:30 1 TAB Ondansetron HCl 4 mg Q4HP PRN IV 04/14/24 13:15 Morphine Sulfate 2 mg Q4HPRN PRN IV 04/14/24 13:15 04/21/24 17:42 2 MG Aspirin 81 mg DAILY PO 04/15/24 10:00 04/21/24 10:14 81 MG Gabapentin 300 mg TID PO 04/14/24 14:00 04/21/24 14:03 300 MG Naproxen 500 mg BID PRN PO 04/14/24 13:15 Trazodone HCl 50 mg HS PO 04/14/24 22:00 04/20/24 21:21 50 MG Olanzapine 5 mg DAILY PO 04/16/24 10:00 04/21/24 10:14 5 MG Tamsulosin HCl 0.4 mg QPM PO 04/16/24 18:00 04/21/24 17:28 0.4 MG Diagnostic Test (Pha) 1 strip ACHS 04/16/24 17:00 04/21/24 17:28 1 STRIP Insulin Human Regular ACHS SC 04/16/24 17:00 04/20/24 21:33 2 UNITS Dextrose 50 ml UD PRN IV 04/16/24 11:45 Atorvastatin Calcium 40 mg HS PO 04/17/24 22:00 04/20/24 21:22 40 MG Docusate Sodium 100 mg BID PO 04/20/24 22:00 04/21/24 10:14 100 MG Lactulose 30 ml BID PO 04/20/24 22:00 04/21/24 10:13 30 ML Examination Gen - no pallor, no icterus, no cyanosis, no clubbing, no LAD, no edema . Skin - Patients skin is warm and dry. Soles of feet have blackened tissue HEENT - normocephalic, atraumatic, dry mucous membranes. Neck - full ROM, no LAD, no JVD Pulmonary - B/L vesicular breath sounds. no crackles , no wheezing, no stridor. cardiovascular - normal S1,S2 heard. no murmurs heard. peripheral pulses normal radial 2+, pedal 2+. capillary refill normal <2 secs. GI - soft abdomen without tenderness to palpation . no hepatospleenomegaly. Bowel sounds normoactive Neurological - Patient is A/O X 3 . Bilateral upper extremity strength 5/5, bilateral lower extremity strength 5/5, no facial droop, normal speech, no tremor, no sensory deficiets. Patient reports depressed mood which has improved, mild anxiety, no current suicidal ideation. laboratory and microbiology Laboratory Tests 04/21/24 07:21 04/20/24 05:52 Test 04/21/24 07:21 Range/Units Serum Glucose 120 H 74-106 mg/dL Microbiology Date/Time Source Procedure Growth Status 04/17/24 10:30 Nose MRSA Screen - Final Complete Labs and/or images reviewed: Labs reviewed by me, Image(s) reviewed by me Problem List/Assessment/Plan Problem List/Assessment/Plan Assessment and plan # Chronic depression with suicidal ideation - tele psych consulted who recommended - voluntary transfer to inpatient psych facility for higher level of care - 1:1 sitter is recommended - Recommend continuation of previous outpt med regimen - Abilify 5 mg po QD and Venlafaxine XR 150 mg QD - first dose of both meds in AM - Abilify not available in the hospital so patient was put on olanzapine 5 mg p.o. q.d. # Hypercalcemia - calcium 13.2--> 11.4-->11-->11.5-->12.1-->12.4->11.8-->11.8 - phosphorus 2.2 - PTH elevated at 143 - vitamin-D pending - patient given calcitonin 400 unit given on 04/14 and 04/19 - 1L NS given - 04/[address] Veliz who recommended continuing with the IV fluid hydration and furosemide 40 mg IV Q day to increase calcium excretion. Parathyroid sestamibi nuclear medicine scan showed No scintigraphic evidence for parathyroid adenoma in the neck. - 04/19 Surgery consulted for evaluation for parathyroidectomy with suspected parathyroid hyperplasia. - 04/20 - surgery recommended outpatient follow up with an endocrine surgery. # hypertriglyceridemia - atorvastatin 40 mg HS started # history of recently diagnosed type 2 diabetes mellitus - blood glucose level within normal - patient on Accu-Checks - on mild insulin sliding scale # peripheral neuropathy - on gabapentin 300 mg t.i.d. # constipation - on scheduled docusate and lactulose scheduled 04/21- Patient is on scheduled laxatives; reports having regular bowel movements; given 1L NS @ 150ml/hr and one dose of furosemide 40mg IV given. Calcium and phosphorus levels to be followed up tomorrow and tele psych to be consulted tomorrow if the patient is medically cleared for discharge. Plan discussed with Dr. Goel Plan discussed with: Patient, Other (Nurse) My Orders My Orders Orders - SUMIT GUEVARA RESIDENT Procedure Category Date Status Time Insert Midline ORDERS 04/21/24 Transmitted 13:31 Basic Metabolic Panel LAB 04/22/24 Verified 04:00 Phosphorus LAB 04/22/24 Verified 04:00 Dietary Evaluation Review Comments: 1) Consider a CCHO 60g/2gm Na diet 2) Continue current plan of care Expected Outcomes/Goals: 1) Pt labs to improve 2) F/U in 3-5 days Addendum Addendum Addendum I was physically present for the [place] portions of the service provided to patient by THE RESIDENT. I have reviewed the documentation, discussed the case with resident and agree with the resident's documentation except as noted. Also the patient's clinical case was discussed with the patient's nurse. This medical document was created using an electronic medical record system with computerized dictation system. Although this document has been carefully reviewed, there might still be some phonetic and typographical errors. These areas are purely typographical due to imperfections of the software programs, and do not reflect any compromise in the patient's medical care. Late signature. Date of Service: Apr 21, 2024 Billing Provider: JOHANNA GOEL MD Common Visit Codes: [id number] INP/OBS CARE(HIGH) SUMIT GUEVARA RESIDENT Apr 21, 2024 18:30 JOHANNA GOEL MD Apr 22, 2024 14:18
[2024-04-21 21:23] VITALS: BP 111/64; PULSE 77; RESP 18; TEMP 98.6; O2SAT 94
[2024-04-22] VITALS (8 sets, daily range): BP systolic 92–128; BP diastolic 69–95; PULSE 63–88; RESP 18–85; TEMP 97.5–98.2; O2SAT 93–96
[2024-04-22] MEDS: ACETAMINOPHEN 325 MG TAB PO PRN (06:22)
[2024-04-22 06:41] LABS: Chloride 106 mmol/L (98-107); Sodium 140 mmol/L (136-145)
[2024-04-22 06:42] LABS: Anion Gap 11 (5-15); Carbon Dioxide 23 mmol/L (20-31)
[2024-04-22 06:48] LABS: BUN/Creatinine Ratio 10.5 (10.0-20.0); Blood Urea Nitrogen 11 mg/dL (9-23)
[2024-04-22 06:57] LABS: Calcium 12.2 mg/dL (8.7-10.4); Glucose 124 mg/dL (74-106)
[2024-04-22] MEDS: ZOLEDRONIC ACID 4 MG in SODIUM CHL 0.9% 100 ML IV ONE (09:53)
[2024-04-22] MEDS: SODIUM CHLORIDE 0.9% 1,000 ML IV ONE (12:18)
[2024-04-22] MEDS: FUROSEMIDE 40 MG/4 ML VIAL IV ONE (12:21)
--- NOTE | 2024-04-22 15:16 | DVHPNRES ---
Progress Note Date Seen: Apr 22, 2024 Resident Creating Document: MEDINA SCHWARTZ RESIDENT Medical Necessity Reason Pt with a Central, PICC or Fol: No Subjective Review of Systems Patient seen and examined at the bedside. Patient is alert and oriented to time, place and person. Patient denied any suicidal ideation reports that he feels better currently and less anxious. Patient does not report of headache, bilateral extremity pain and tingling has improved. Calcium level went from 11->11.5-> 12.1->12.4-> 11.8->11.8->12.2. parathyroid nuclear medicine scan shows no adenoma. No shortness of breath, no weakness, no chest pain, no nausea, vomiting, diarrhea. reported bowel movement regular . Patient also denies any muscle cramps, dizziness, lightheadedness, chest pain, abdominal pain, myalgias, he had a bowel movement today. Patient is currently asymptomatic, we provided IV bisphosphonate, IV fluids and Lasix today. Patient is medically clear, we have put another consult for psychiatrist to evaluate 5150. Objective vital signs Vital Sign Date Time Temp Pulse Resp B/P (MAP) Pulse Ox O2 Delivery O2 Flow Rate FiO2 04/22/24 14:19 75 18 113/73 04/22/24 08:15 Room Air* 0 21 04/22/24 06:05 95 04/22/24 05:26 97.7 97.7 Total Intake and Output 04/21/24 04/21/24 04/22/24 15:00 23:00 07:00 Intake Total 3500 ml 420 ml Balance 3500 ml 420 ml medications Current Medications Medications Dose Ordered Sig/Iftikhar Route Start Time Stop Time Status Last Admin Dose Admin Haloperidol Lactate 5 mg Q8HPRN PRN IM 04/14/24 13:15 Venlafaxine HCl 150 mg DAILY PO 04/15/24 10:00 04/22/24 09:53 150 MG Lorazepam 0.5 mg Q6HP PRN PO 04/14/24 13:15 04/17/24 12:49 0.5 MG Al Hydrox/Mg Hydrox/Simethicone 30 ml Q6HP PRN PO 04/14/24 13:15 Acetaminophen 650 mg Q6HP PRN PO 04/14/24 13:15 04/22/24 06:22 650 MG Acetaminophen/ Hydrocodone Bitart 1 tab Q4HP PRN PO 04/14/24 13:15 04/21/24 12:30 1 TAB Ondansetron HCl 4 mg Q4HP PRN IV 04/14/24 13:15 Morphine Sulfate 2 mg Q4HPRN PRN IV 04/14/24 13:15 04/22/24 14:19 2 MG Aspirin 81 mg DAILY PO 04/15/24 10:00 04/22/24 09:53 81 MG Gabapentin 300 mg TID PO 04/14/24 14:00 04/22/24 14:19 300 MG Naproxen 500 mg BID PRN PO 04/14/24 13:15 Trazodone HCl 50 mg HS PO 04/14/24 22:00 04/21/24 21:21 50 MG Olanzapine 5 mg DAILY PO 04/16/24 10:00 04/22/24 09:53 5 MG Tamsulosin HCl 0.4 mg QPM PO 04/16/24 18:00 04/21/24 17:28 0.4 MG Diagnostic Test (Pha) 1 strip ACHS 04/16/24 17:00 04/22/24 11:30 1 STRIP Insulin Human Regular ACHS SC 04/16/24 17:00 04/22/24 12:25 3 UNITS Dextrose 50 ml UD PRN IV 04/16/24 11:45 Atorvastatin Calcium 40 mg HS PO 04/17/24 22:00 04/21/24 21:22 40 MG Docusate Sodium 100 mg BID PO 04/20/24 22:00 04/22/24 09:53 100 MG Lactulose 30 ml BID PO 04/20/24 22:00 04/22/24 09:53 30 ML Examination Gen - no pallor, no icterus, no cyanosis, no clubbing, no LAD, no edema . Skin - Patients skin is warm and dry. Soles of feet have blackened tissue HEENT - normocephalic, atraumatic, dry mucous membranes. Neck - full ROM, no LAD, no JVD Pulmonary - B/L vesicular breath sounds. no crackles , no wheezing, no stridor. cardiovascular - normal S1,S2 heard. no murmurs heard. peripheral pulses normal radial 2+, pedal 2+. capillary refill normal <2 secs. GI - soft abdomen without tenderness to palpation . no hepatospleenomegaly. Bowel sounds normoactive Neurological - Patient is A/O X 3 . Bilateral upper extremity strength 5/5, bilateral lower extremity strength 5/5, no facial droop, normal speech, no tremor, no sensory deficiets. Patient reports mood has improved, mild anxiety, no current suicidal ideation. laboratory and microbiology Laboratory Tests 04/22/24 05:38 04/20/24 05:52 Test 04/22/24 05:38 Range/Units Serum Glucose 124 H 74-106 mg/dL Microbiology Date/Time Source Procedure Growth Status 04/17/24 10:30 Nose MRSA Screen - Final Complete Labs and/or images reviewed: Labs reviewed by me, Image(s) reviewed by me Problem List/Assessment/Plan Problem List/Assessment/Plan # acute on Chronic depression with suicidal ideation - tele psych consulted who recommended voluntary transfer to inpatient psych facility for higher level of care - 1:1 sitter is recommended - Recommend continuation of previous outpt med regimen - Abilify 5 mg po QD and Venlafaxine XR 150 mg QD - first dose of both meds in AM - Abilify not available in the hospital so patient was put on olanzapine 5 mg p.o. q.d. # Hypercalcemia - calcium 13.2--> 11.4-->11-->11.5-->12.1-->12.4->11.8-->11.8->12.2 - phosphorus 2.2 - PTH elevated at 143 - vitamin-D pending - patient given calcitonin 400 unit given on 04/14 and 04/19 - 1L NS given - 04/[address] Veliz who recommended continuing with the IV fluid hydration and furosemide 40 mg IV Q day to increase calcium excretion. Parathyroid sestamibi nuclear medicine scan showed No scintigraphic evidence for parathyroid adenoma in the neck. - 04/19 Surgery consulted for evaluation for parathyroidectomy with suspected parathyroid hyperplasia. - 04/20 - surgery recommended outpatient follow up with an endocrine surgery. Provided another L of NS, relief as folate, Lasix. Patient is currently medically clear as he is currently asymptomatic, we placed another consult for psych to evaluate his 5150 hold # hypertriglyceridemia - atorvastatin 40 mg HS started # history of recently diagnosed type 2 diabetes mellitus - blood glucose level within normal - patient on Accu-Checks - on mild insulin sliding scale # peripheral neuropathy - on gabapentin 300 mg t.i.d. # constipation - on scheduled docusate and lactulose scheduled Plan discussed with Dr. Goel Plan discussed with: Patient, Other (RN) My Orders My Orders Orders - MEDINA SCHWARTZ RESIDENT Procedure Category Date Status Time Increase Walking - LIDA 04/22/24 In Process 08:22 *Tele Psych Consult CONS 04/22/24 Transmitted 10:58 Sodium Chloride 0.9% PHA 04/22/24 In Process 11:00 Basic Metabolic Panel LAB 04/23/24 Verified 04:00 Calcium LAB 04/23/24 Verified 04:00 Dietary Evaluation Review Comments: 1) Consider a CCHO 60g/2gm Na diet 2) Continue current plan of care Expected Outcomes/Goals: 1) Pt labs to improve 2) F/U in 3-5 days Addendum Addendum Addendum I was physically present for the galaviz portions of the service provided to patient by THE RESIDENT. I have reviewed the documentation, discussed the case with resident and agree with the resident's documentation except as noted. Also the patient's clinical case was discussed with the patient's nurse. This medical document was created using an electronic medical record system with computerized dictation system. Although this document has been carefully reviewed, there might still be some phonetic and typographical errors. These areas are purely typographical due to imperfections of the software programs, and do not reflect any compromise in the patient's medical care. Late signature. Date of Service: Apr 22, 2024 Billing Provider: JOHANNA GOEL MD Common Visit Codes: [id number] INP/OBS CARE(HIGH) MEDINA SCHWARTZ RESIDENT Apr 22, 2024 15:16 JOHANNA GOEL MD Apr 23, 2024 21:58
--- NOTE | 2024-04-22 17:37 | DVHINCON2 ---
Date of service: Apr 22, [address] Fredo Holley Reason for Consultation Medication management and disposition. History of Present Illness Chief complaint:"I was suicidal". Interval history: This is a 53 year male who was seen for follow up via telepsychiatry. He reported that he initially came to hospital because he was having suicidal ideation. He denied any intent or plan at that time. He re ported that he does not have any suicidal ideation anymore. He denied feeling depressed. He reported good sleep and appetite. His energy level is fair and has no trouble concentrating. He denied feeling hopeless or worthless. He denied any homicidal ideation. He denied any auditory or visual hallucination. He denied any paranoia. Past psychiatric history: Patient has two previous inpatient psychiatric hospitalization. Patient denied any suicide attempts in the past. Past Medical History As per history and physical. Past Surgical History As per history and physical. Family History: Anxiety disorder G8 MOTHER FH: breast cancer in first degree relative G8 MOTHER Family History He denied any family history of any psychiatric illness. He denied any family history of any attempted or committed Social History Patient is living with a roommate. Allergies: Coded Allergies: Thioridazine (Verified Allergy, Unknown, 04/17/24) Home Meds Active Scripts Naproxen (NAPROSYN TABLET) 500 Mg Tb, 1 TAB PO BID PRN, #30 TAB 0 Refills Prov:JOSE GILBERT 12/16/22 Mirtazapine (Mirtazapine Oral Disintegrating Tablet) 7.5 Mg Tab, 7.5 MG PO HS for 30 Days, #30 TAB Prov:AME BOWENS MD 09/06/22 Buspirone Hcl (Buspirone Hcl) 10 Mg Tab, 10 MG PO BID for 30 Days, #60 TAB Prov:AME BOWENS MD 09/06/22 Sertraline Hcl (Sertraline Hcl) 50 Mg Tab, 50 MG PO DAILY, #30 MG Prov:AME BOWENS MD 09/06/22 Gabapentin (Gabapentin) 300 Mg Cap, 2 CAP PO TID, #90 CAP 1 Refill Prov:LEXX KRUEGER MD 06/23/22 Ibuprofen Micronized (Ibuprofen) 800 Mg Tab, 1 TAB PO TID, #90 TAB Prov:LEXX KRUEGER MD 06/23/22 Reported Medications Oxycodone W/ Acetaminophen (Oxycodone/Acetaminophen 10-300 mg) 1 Tab Tab 06/22/22 Aspirin (ASPIRIN 81) 81 Mg Tab, 81 MG OR DAILY, TAB 06/22/22 Trazodone Hcl (Trazodone Hcl) 50 Mg Tab, 50 MG PO DAILY, TAB 06/22/22 Review of Systems Review of systems is negative except HPI. Vital Signs Vital Signs Date Time Temp Pulse Resp B/P (MAP) Pulse Ox O2 Delivery O2 Flow Rate FiO2 04/22/24 14:19 75 18 113/73 04/22/24 13:00 98.1 94 98.1 04/22/24 08:15 Room Air* 0 21 Physical Exam Mental status examination: This is a 53 year male who appears slightly older than his stated age. He is casually dressed. His grooming is marginal. His eye contact is good. His speech is regular rate and rhythm. He describes mood as "my mood is been good" and his affect is restricted. He denied any suicidal or homicidal ideation. He denied any auditory or visual hallucination. His thought processes is linear and goal-directed. He is oriented to time, place and person. His attention and concentration impaired. His memory and language intact. His judgment and insight is limited. His impulse control is limited. His fund of knowledge is impaired. Labs/Diagnostic Data Labs Test 04/22/24 12:10 04/22/24 05:38 04/20/24 05:52 04/19/24 06:00 Range/Units POC Glucose 184 H 70-106 mg/dl Sodium Level 140 136-145 mmol/L Potassium Level 4.0 3.5-5.1 mmol/L Chloride Level 106 98-107 mmol/L Carbon Dioxide Level 23 20-31 mmol/L Anion Gap 11 5-15 Blood Urea Nitrogen 11 9-23 mg/dL Creatinine 1.05 0.700-1.30 mg/dL Glomerular Filtration Rate Calc 84 >90 mL/min BUN/Creatinine Ratio 10.5 10.0-20.0 Serum Glucose 124 H 74-106 mg/dL Calcium Level 12.2 H 8.7-10.4 mg/dL Phosphorus Level 2.0 L 2.4-5.1 mg/dL Magnesium Level 1.7 1.6-2.6 mg/dL White Blood Count 7.9 4.4-10.8 10^3/uL Red Blood Count 4.89 4.5-5.90 10^6/uL Hemoglobin 17.1 13.5-17.5 g/dL Hematocrit 48.7 41.0-53.0 % Mean Corpuscular Volume 99.6 80.0-100.0 fL Mean Corpuscular Hemoglobin 34.9 H 28.0-32.0 pg Mean Corpuscular Hemoglobin Concent 35.0 32.0-36.0 g/dL Red Cell Distribution Width 13.4 11.8-14.3 % Platelet Count 295 140-450 10^3/uL Mean Platelet Volume 7.2 6.9-10.8 fL Neutrophils (%) (Auto) 54.5 37.0-80.0 % Lymphocytes (%) (Auto) 31.8 10.0-50.0 % Monocytes (%) (Auto) 8.3 0.0-12.0 % Eosinophils (%) (Auto) 4.2 0.0-7.0 % Basophils (%) (Auto) 1.2 0.0-2.0 % Neutrophils # (Auto) 4.3 1.6-8.6 10 ^3/uL Lymphocytes # (Auto) 2.5 0.4-5.4 10 ^3/uL Monocytes # (Auto) 0.7 0-1.3 10 ^3/uL Eosinophils # (Auto) 0.3 0-0.8 10 ^3/uL Basophils # (Auto) 0.1 0-0.2 10 ^3/uL Nucleated Red Blood Cells 0.0 % Urine Color Yellow Yellow Urine Clarity Clear Clear Urine pH 6.0 5.0-9.0 Urine Specific [place] 1.015 1.001-1.035 Urine Protein Negative Negative Urine Ketones Negative Negative Urine Blood Negative Negative /uL Urine Nitrite Negative Negative Urine Bilirubin Negative Negative Urine Urobilinogen 2 H Negative mg/dL Urine Leukocyte Esterase Negative Negative /uL Urine RBC 1 0 - 3 /hpf Urine WBC 1 0 - 3 /hpf Urine Squamous Epithelial Cells None seen <5 /hpf Urine Calcium Oxalate Crystals Few None Seen Urine Bacteria None seen None Seen /hpf Urine Creatinine 93.11 30.0-125.0 mg/dL Urine Sodium 76 40-220 mmol/L Urine Glucose Normal Normal mg/dL Test 04/16/24 06:30 04/15/24 16:30 04/15/24 06:32 04/13/24 17:52 Range/Units Hemoglobin A1c 6.6 H <5.7 % A1C Total Bilirubin 0.4 0.2-1.0 mg/dL Aspartate Amino Transferase (AST) 20 13-40 U/L Alanine Aminotransferase (ALT) 32 7-40 U/L Alkaline Phosphatase 59 46-116 U/L Total Protein 6.4 5.7-8.2 g/dL Albumin 4.2 3.2-4.8 g/dL Triglycerides Level 394 H < 150 mg/dL Cholesterol Level 190 < 200 mg/dL LDL Cholesterol 115 H < 100 mg/dL HDL Cholesterol 30 L 40-59 mg/dL Vitamin B12 Level 358 211-911 pg/mL Thyroid Stimulating Hormone (TSH) 1.39 0.55-4.78 uIU/mL Hepatitis B Surface Antigen Negative Negative Hepatitis C Antibody Negative Negative Urine Amorphous Crystals Few None Seen /hpf Urine Opiates Screen Neg NEGATIVE Urine Fentanyl Screen Neg NEGATIVE Urine Barbiturates Screen Neg NEGATIVE Urine Phencyclidine Screen Neg NEGATIVE Urine Amphetamines Screen Neg NEGATIVE Urine Benzodiazepines Screen Neg NEGATIVE Urine Cocaine Screen Neg NEGATIVE Urine Cannabinoids Screen Neg NEGATIVE Vitamin D 25-Hydroxy 28.9 L 30.0-100 ng/mL Parathyroid Hormone (Intact) 143.3 H 18.4-80.1 pg/mL Salicylates Level < 3.0 -30 mg/dL Acetaminophen Level < 2.0 L 10.0-20.0 UG/ML Plasma/Serum Blood Alcohol 3.6 <10 mg/dL Microbiology Date/Time Source Procedure Growth Status 04/17/24 10:30 Nose MRSA Screen - Final Complete Assessment Patient with a diagnosis of major depressive disorder recurrent moderate who was denying any suicidal or homicidal ideation. Patient is able to verbalize safety plan including talking to his doctor, talking to his psychiatrist or call hotline number in case of worsening of his symptoms. Plan/Recommendation Patient is no longer meeting criteria for 5150 hold and is cleared for discharge from a psychiatric standpoint. I will recommend to continue his current psychotropic medication. Patient can follow up with outpatient psychiatric level of care. Care was coordinated with the patient and nursing staff. Plan discussed with: Patient JENNIFER VIVAR MD Apr 22, 2024 17:37
[2024-04-23 06:07] LABS: Anion Gap 8 (5-15); Carbon Dioxide 29 mmol/L (20-31); Chloride 102 mmol/L (98-107); Potassium 4.4 mmol/L (3.5-5.1); Sodium 139 mmol/L (136-145)
[2024-04-23 06:13] LABS: BUN/Creatinine Ratio 15.8 (10.0-20.0); Blood Urea Nitrogen 18 mg/dL (9-23); Glucose 97 mg/dL (74-106)
[2024-04-23 06:14] LABS: Calcium 12.5 mg/dL (8.7-10.4)
[2024-04-23 09:00] VITALS: BP 115/73; PULSE 105; RESP 18; TEMP 100.3; O2SAT 97
[2024-04-23 13:00] VITALS: BP 130/87; PULSE 104; RESP 19; TEMP 99; O2SAT 100
--- NOTE | 2024-04-23 15:44 | DVHPNRES ---
Progress Note Date Seen: Apr 23, 2024 Resident Creating Document: SUMIT GUEVARA RESIDENT Medical Necessity Reason Pt with a Central, PICC or Fol: No Subjective Review of Systems Patient is a 53-year-old male with a past medical history of chronic depression and anxiety was brought to the ED for having suicidal ideation. Patient reports that for the past several weeks he was been experiencing worsening depression with depressed mood, anhedonia, sleep disturbances, loss of interest difficulty concentration. Patient reports that his recently liver cancer which acted as trigger for his worsening depression. Patient reported that he had intermittent suicidal ideation with plan to OD on pills although he was not that intent. Patient does not have any lopez symptoms. Patient reported that he does not have a psychiatrist but his primary care doctor is at the intersection of [place] and [facility]. Patient reported that he lost his medications Abilify and venlafaxine several weeks ago and has not been taking any depression medication since then. Past medical history: Chronic depression and anxiety Past surgical history: None reported Social history: Denies smoking, alcohol, drug use Home medication: Clonidine 0.1 mg, aspirin 81 mg, trazodone, atorvastatin 40 mg Review of systems Patient seen and examined at the bedside. Patient is alert and oriented to time, place and person. Patient denied any suicidal ideation reports that he feels better currently and less anxious. Patient does not report of headache, bilateral extremity pain and tingling has improved. Calcium level went from 11->11.5-> 12.1->12.4-> 11.8->11.8->12.2->12.5. parathyroid nuclear medicine scan shows no adenoma. No shortness of breath, no weakness, no chest pain, no nausea, vomiting, diarrhea. reported bowel movement regular . Patient also denies any muscle cramps, dizziness, lightheadedness, chest pain, abdominal pain, myalgias, he had a bowel movement today. Patient is currently asymptomatic Objective vital signs Vital Sign Date Time Temp Pulse Resp B/P (MAP) Pulse Ox O2 Delivery O2 Flow Rate FiO2 04/23/24 14:13 104 19 130/87 04/23/24 13:00 99.0 100 99.0 04/23/24 08:10 Room Air* 0 21 Total Intake and Output 04/22/24 04/22/24 04/23/24 15:00 23:00 07:00 Intake Total 1700 ml 1100 ml Balance 1700 ml 1100 ml medications Current Medications Medications Dose Ordered Sig/Iftikhar Route Start Time Stop Time Status Last Admin Dose Admin Haloperidol Lactate 5 mg Q8HPRN PRN IM 04/14/24 13:15 Venlafaxine HCl 150 mg DAILY PO 04/15/24 10:00 04/23/24 09:08 150 MG Lorazepam 0.5 mg Q6HP PRN PO 04/14/24 13:15 04/17/24 12:49 0.5 MG Al Hydrox/Mg Hydrox/Simethicone 30 ml Q6HP PRN PO 04/14/24 13:15 Acetaminophen 650 mg Q6HP PRN PO 04/14/24 13:15 04/22/24 06:22 650 MG Acetaminophen/ Hydrocodone Bitart 1 tab Q4HP PRN PO 04/14/24 13:15 04/21/24 12:30 1 TAB Ondansetron HCl 4 mg Q4HP PRN IV 04/14/24 13:15 Morphine Sulfate 2 mg Q4HPRN PRN IV 04/14/24 13:15 04/23/24 14:13 2 MG Aspirin 81 mg DAILY PO 04/15/24 10:00 04/23/24 09:08 81 MG Gabapentin 300 mg TID PO 04/14/24 14:00 04/23/24 14:12 300 MG Naproxen 500 mg BID PRN PO 04/14/24 13:15 Trazodone HCl 50 mg HS PO 04/14/24 22:00 04/22/24 22:00 50 MG Olanzapine 5 mg DAILY PO 04/16/24 10:00 04/23/24 09:08 5 MG Tamsulosin HCl 0.4 mg QPM PO 04/16/24 18:00 04/22/24 18:01 0.4 MG Diagnostic Test (Pha) 1 strip ACHS 04/16/24 17:00 04/23/24 11:33 1 STRIP Insulin Human Regular ACHS SC 04/16/24 17:00 04/23/24 11:34 3 UNITS Dextrose 50 ml UD PRN IV 04/16/24 11:45 Atorvastatin Calcium 40 mg HS PO 04/17/24 22:00 04/22/24 22:00 40 MG Docusate Sodium 100 mg BID PO 04/20/24 22:00 04/23/24 09:08 100 MG Lactulose 30 ml BID PO 04/20/24 22:00 04/23/24 09:07 30 ML Examination Gen - no pallor, no icterus, no cyanosis, no clubbing, no LAD, no edema . Skin - Patients skin is warm and dry. Soles of feet have blackened tissue HEENT - normocephalic, atraumatic, dry mucous membranes. Neck - full ROM, no LAD, no JVD Pulmonary - B/L vesicular breath sounds. no crackles , no wheezing, no stridor. cardiovascular - normal S1,S2 heard. no murmurs heard. peripheral pulses normal radial 2+, pedal 2+. capillary refill normal <2 secs. GI - soft abdomen without tenderness to palpation . no hepatospleenomegaly. Bowel sounds normoactive Neurological - Patient is A/O X 3 . Bilateral upper extremity strength 5/5, bilateral lower extremity strength 5/5, no facial droop, normal speech, no tremor, no sensory deficiets. Patient reports mood has improved, mild anxiety, no current suicidal ideation. laboratory and microbiology Laboratory Tests 04/23/24 05:29 04/20/24 05:52 Test 04/23/24 05:29 Range/Units Serum Glucose 97 74-106 mg/dL Microbiology Date/Time Source Procedure Growth Status 04/17/24 10:30 Nose MRSA Screen - Final Complete Labs and/or images reviewed: Labs reviewed by me, Image(s) reviewed by me Problem List/Assessment/Plan Problem List/Assessment/Plan Assessment and plan #Acute on Chronic depression with suicidal ideation - tele psych consulted who recommended voluntary transfer to inpatient psych facility for higher level of care - 1:1 sitter is recommended - Recommend continuation of previous outpt med regimen - Abilify 5 mg po QD and Venlafaxine XR 150 mg QD - first dose of both meds in AM - Abilify not available in the hospital so patient was put on olanzapine 5 mg p.o. q.d. # Hypercalcemia - calcium 13.2--> 11.4-->11-->11.5-->12.1-->12.4->11.8-->11.8->12.2->12.5 - phosphorus 2.2 - PTH elevated at 143 - vitamin-D pending - patient given calcitonin 400 unit given on 04/14 and 04/19 - 1L NS given - 04/[address] Veliz who recommended continuing with the IV fluid hydration and furosemide 40 mg IV Q day to increase calcium excretion. Parathyroid sestamibi nuclear medicine scan showed No scintigraphic evidence for parathyroid adenoma in the neck. - 04/19 Surgery consulted for evaluation for parathyroidectomy with suspected parathyroid hyperplasia. - 04/20 - surgery recommended outpatient follow up with an endocrine surgery. Provided another L of NS, relief as folate, Lasix. Patient is currently medically clear as he is currently asymptomatic, we placed another consult for psych to evaluate his 5150 hold # hypertriglyceridemia - atorvastatin 40 mg HS started # history of recently diagnosed type 2 diabetes mellitus - blood glucose level within normal - patient on Accu-Checks - on mild insulin sliding scale # peripheral neuropathy - on gabapentin 300 mg t.i.d. # constipation - on scheduled docusate and lactulose scheduled 04/23- tele psych with on 04/22, assessed the patient and recommended patient no longer meeting criteria for 5150 hold and is cleared for discharge from psychiatric standpoint, continue current psychotropic medication and outpatient psychiatric level of care. Patient's serum calcium level trended up and patient was not discharged. We will monitor calcium level tomorrow. Plan discussed with Dr. Goel Plan discussed with: Patient, Other (RN ( Kye )) Dietary Evaluation Review Comments: 1) Consider a CCHO 60g/2gm Na diet 2) Continue current plan of care Expected Outcomes/Goals: 1) Pt labs to improve 2) F/U in 3-5 days Addendum Addendum Addendum I was physically present for the galaviz portions of the service provided to patient by THE RESIDENT. I have reviewed the documentation, discussed the case with resident and agree with the resident's documentation except as noted. Also the patient's clinical case was discussed with the patient's nurse. This medical document was created using an electronic medical record system with computerized dictation system. Although this document has been carefully reviewed, there might still be some phonetic and typographical errors. These areas are purely typographical due to imperfections of the software programs, and do not reflect any compromise in the patient's medical care. Late signature. Date of Service: Apr 23, 2024 Billing Provider: JOHANNA GOEL MD Common Visit Codes: [id number] INP/OBS CARE(HIGH) SUMIT GUEVARA RESIDENT Apr 23, 2024 15:44 JOHANNA GOEL MD Apr 24, 2024 05:54
[2024-04-23 18:00] VITALS: BP 113/79; PULSE 106; RESP 20; TEMP 98.2; O2SAT 93
[2024-04-23 21:00] VITALS: BP 101/68; PULSE 103; RESP 20; TEMP 98.9; O2SAT 92
[2024-04-24 01:00] VITALS: BP 115/81; PULSE 113; RESP 20; TEMP 99.4; O2SAT 91
[2024-04-24 05:00] VITALS: BP 110/79; PULSE 88; RESP 20; TEMP 98.1; O2SAT 92
[2024-04-24 06:59] LABS: Chloride 103 mmol/L (98-107); Potassium 3.8 mmol/L (3.5-5.1); Sodium 136 mmol/L (136-145)
[2024-04-24 07:00] LABS: Anion Gap 10 (5-15); Carbon Dioxide 23 mmol/L (20-31)
[2024-04-24 07:05] LABS: BUN/Creatinine Ratio 10.1 (10.0-20.0); Blood Urea Nitrogen 13 mg/dL (9-23)
[2024-04-24 07:09] LABS: Calcium 11.6 mg/dL (8.7-10.4); Glucose 142 mg/dL (74-106); Phosphorus 1.9 mg/dL (2.4-5.1)
[2024-04-24] MEDS ORDERED: TAMS-35 PO (08:18)
[2024-04-24] MEDS ORDERED: OLAN1TAB7 PO (08:18)
[2024-04-24] MEDS ORDERED: VENL37.572 PO (08:18)
[2024-04-24] MEDS ORDERED: METF-370 PO (08:18)
[2024-04-24] MEDS ORDERED: ATOR20TA50 PO (08:18)
[2024-04-24] MEDS ORDERED: LACT10SO3 PO (08:18)
[2024-04-24 09:00] VITALS: BP 118/80; PULSE 87; RESP 16; TEMP 98.1; O2SAT 92
--- NOTE | 2024-04-24 18:09 | DVHDSRES ---
Discharge Summary Date of Admission Resident Creating Document: SUMIT GUEVARA RESIDENT Apr 14, 2024 at 13:01 Date of Discharge: Apr 24, 2024 Admitting Diagnosis Hypercalcemia Depression SI Wounds: no wounds Labs/Diagnostic Data: Laboratory Results Test 04/24/24 06:03 04/24/24 05:48 04/22/24 05:38 04/20/24 05:52 POC Glucose 164 mg/dl (70-106) Sodium Level 136 mmol/L (136-145) Potassium Level 3.8 mmol/L (3.5-5.1) Chloride Level 103 mmol/L (98-107) Carbon Dioxide Level 23 mmol/L (20-31) Anion Gap 10 (5-15) Blood Urea Nitrogen 13 mg/dL (9-23) Creatinine 1.29 mg/dL (0.700-1.30) Glomerular Filtration Rate Calc 66 mL/min (>90) BUN/Creatinine Ratio 10.1 (10.0-20.0) Serum Glucose 142 mg/dL (74-106) Calcium Level 11.6 mg/dL (8.7-10.4) Phosphorus Level 1.9 mg/dL (2.4-5.1) Magnesium Level 1.7 mg/dL (1.6-2.6) White Blood Count 7.9 10^3/uL (4.4-10.8) Red Blood Count 4.89 10^6/uL (4.5-5.90) Hemoglobin 17.1 g/dL (13.5-17.5) Hematocrit 48.7 % (41.0-53.0) Mean Corpuscular Volume 99.6 fL (80.0-100.0) Mean Corpuscular Hemoglobin 34.9 pg (28.0-32.0) Mean Corpuscular Hemoglobin Concent 35.0 g/dL (32.0-36.0) Red Cell Distribution Width 13.4 % (11.8-14.3) Platelet Count 295 10^3/uL (140-450) Mean Platelet Volume 7.2 fL (6.9-10.8) Neutrophils (%) (Auto) 54.5 % (37.0-80.0) Lymphocytes (%) (Auto) 31.8 % (10.0-50.0) Monocytes (%) (Auto) 8.3 % (0.0-12.0) Eosinophils (%) (Auto) 4.2 % (0.0-7.0) Basophils (%) (Auto) 1.2 % (0.0-2.0) Neutrophils # (Auto) 4.3 10 ^3/uL (1.6-8.6) Lymphocytes # (Auto) 2.5 10 ^3/uL (0.4-5.4) Monocytes # (Auto) 0.7 10 ^3/uL (0-1.3) Eosinophils # (Auto) 0.3 10 ^3/uL (0-0.8) Basophils # (Auto) 0.1 10 ^3/uL (0-0.2) Nucleated Red Blood Cells 0.0 % Test 04/19/24 06:00 04/16/24 06:30 04/15/24 16:30 04/15/24 06:32 Urine Color Yellow (Yellow) Urine Clarity Clear (Clear) Urine pH 6.0 (5.0-9.0) Urine Specific [place] 1.015 (1.001-1.035) Urine Protein Negative (Negative) Urine Ketones Negative (Negative) Urine Blood Negative /uL (Negative) Urine Nitrite Negative (Negative) Urine Bilirubin Negative (Negative) Urine Urobilinogen 2 mg/dL (Negative) Urine Leukocyte Esterase Negative /uL (Negative) Urine RBC 1 /hpf (0 - 3) Urine WBC 1 /hpf (0 - 3) Urine Squamous Epithelial Cells None seen /hpf (<5) Urine Calcium Oxalate Crystals Few (None Seen) Urine Bacteria None seen /hpf (None Seen) Urine Creatinine 93.11 mg/dL (30.0-125.0) Urine Sodium 76 mmol/L (40-220) Urine Glucose Normal mg/dL (Normal) Hemoglobin A1c 6.6 % A1C (<5.7) Total Bilirubin 0.4 mg/dL (0.2-1.0) Aspartate Amino Transferase (AST) 20 U/L (13-40) Alanine Aminotransferase (ALT) 32 U/L (7-40) Alkaline Phosphatase 59 U/L (46-116) Total Protein 6.4 g/dL (5.7-8.2) Albumin 4.2 g/dL (3.2-4.8) Triglycerides Level 394 mg/dL (< 150) Cholesterol Level 190 mg/dL (< 200) LDL Cholesterol 115 mg/dL (< 100) HDL Cholesterol 30 mg/dL (40-59) Vitamin B12 Level 358 pg/mL (211-911) Thyroid Stimulating Hormone (TSH) 1.39 uIU/mL (0.55-4.78) Hepatitis B Surface Antigen Negative (Negative) Hepatitis C Antibody Negative (Negative) Urine Amorphous Crystals Few /hpf (None Seen) Urine Opiates Screen Neg (NEGATIVE) Urine Fentanyl Screen Neg (NEGATIVE) Urine Barbiturates Screen Neg (NEGATIVE) Urine Phencyclidine Screen Neg (NEGATIVE) Urine Amphetamines Screen Neg (NEGATIVE) Urine Benzodiazepines Screen Neg (NEGATIVE) Urine Cocaine Screen Neg (NEGATIVE) Urine Cannabinoids Screen Neg (NEGATIVE) Vitamin D 25-Hydroxy 28.9 ng/mL (30.0-100) Parathyroid Hormone (Intact) 143.3 pg/mL (18.4-80.1) Test 04/13/24 17:52 Salicylates Level < 3.0 mg/dL (-30) Acetaminophen Level < 2.0 UG/ML (10.0-20.0) Plasma/Serum Blood Alcohol 3.6 mg/dL (<10) Other Laboratory Tests 04/24/24 05:48 04/20/24 05:52 Brief Hx & Hospital Course: HPI: Patient is a 53-year-old male with a past medical history of chronic depression and anxiety was brought to the ED for having suicidal ideation. Patient reports that for the past several weeks he was been experiencing worsening depression with depressed mood, anhedonia, sleep disturbances, loss of interest difficulty concentration. Patient reports that his recently liver cancer which acted as trigger for his worsening depression. Patient reported that he had intermittent suicidal ideation with plan to OD on pills although he was not that intent. Patient does not have any lopez symptoms. Patient reported that he does not have a psychiatrist but his primary care doctor is at [facility] [place] [facility]. Patient reported that he lost his medications Abilify and venlafaxine several weeks ago and has not been taking any depression medication since then. Hospital course: Patient was evaluated by tele psych by Dr. Khan, who assessed the patient and recommended voluntary transferred to inpatient psych facility for higher level of care, 1:1 sitter and continuation of outpatient medication Abilify 5 mg and venlafaxine XR 150 mg. In the hospital Abilify was not available so the patient was started on equivalent dose of olanzapine. Patient was not medically cleared for discharge to inpatient psych facility because of hypercalcemia with calcium 13.2 on admission. Patient was stable and was on telemetry. In the ER 1 dose of calcitonin was given following which the patient's calcium came down to 11.4. Patient was started on IV fluids. Patient was monitored further inpatient as his calcium level trended up. Serum parathyroid hormone was elevated, vitamin-D level was low and serum phosphorus was low. Nephrology were consulted who recommended starting the patient on furosemide 40 mg IV daily. Nuclear medicine sestamibi parathyroid scan was done which showed no scintigraphic evidence of parathyroid adenoma in the neck. Suspecting parathyroid hyperplasia surgery were consulted who recommended that the patient should be evaluated by endocrinology surgery. Patient was given 2 more doses of calcitonin over 2 consecutive days followed by 1 dose of zoledronic acid following which the patient's calcium level came down to 11.6. Patient reported of constipation on admission and was not able to pass stool for the initial 3 days even with the use of appropriate laxatives, Fleet enema was given which relieved the patient. Patient was put on scheduled laxatives which helped the patient to have bowel movement every day. Patient was re-evaluated by tele psych on 04/22/[address] Shaw, we will assist the patient and recommended that patient no longer met criteria for 5150 hold and is cleared for discharge and continue on his current psychotropic medication. Review of systems Patient seen and examined at the bedside. Patient is alert and oriented to time, place and person. Patient denied any suicidal ideation reports that he feels better currently and less anxious. Patient does not report of headache, bilateral extremity pain and tingling has improved. Calcium level went from 11->11.5-> 12.1->12.4-> 11.8->11.8->12.2->12.5-> 11.6. No shortness of breath, no weakness, no chest pain, no nausea, vomiting, diarrhea. reported bowel movement regular . Patient also denies any muscle cramps, dizziness, lightheadedness, chest pain, abdominal pain, myalgias, he had a bowel movement today. Patient is currently asymptomatic Physical examination Gen - no pallor, no icterus, no cyanosis, no clubbing, no LAD, no edema . Skin - Patients skin is warm and dry. Soles of feet have blackened tissue HEENT - normocephalic, atraumatic, dry mucous membranes. Neck - full ROM, no LAD, no JVD Pulmonary - B/L vesicular breath sounds. no crackles , no wheezing, no stridor. cardiovascular - normal S1,S2 heard. no murmurs heard. peripheral pulses normal radial 2+, pedal 2+. capillary refill normal <2 secs. GI - soft abdomen without tenderness to palpation . no hepatospleenomegaly. Bowel sounds normoactive Neurological - Patient is A/O X 3 . Bilateral upper extremity strength 5/5, bilateral lower extremity strength 5/5, no facial droop, normal speech, no tremor, no sensory deficiets. Patient reports mood has improved, mild anxiety, no current suicidal ideation. Discharge plan: Patient is sent home and is advised to continue on his psychotropic medication olanzapine 5 mg daily and venlafaxine XR 150 mg daily. Also patient was sent with lactulose, metformin 500 mg b.i.d., tamsulosin 0.4 mg q.p.m. atorvastatin 40 mg and continued on his home medication. Patient was advised to follow up in the discharge clinic in 1 week with the patient will be referred to Nephrology in the outpatient clinic for further management. Patient was also advised to follow up with the tele psych in 2 weeks. Follow up with the PCP in 1-2 weeks. Consults/Reason for consult 1. Tele psych consultation due to suicidal ideation and depression 2. Nephrology consultation due to hypercalcemia and suspected hyperparathyroidism 3. Surgery consultation due to hypercalcemia and suspected parathyroid hyperplasia 4. Tele psych consultation for re-evaluation Operations or Procedures Chest x-ray showed no acute cardiopulmonary abnormality Renal ultrasound showed 8 mm stone in the midpole of the right kidney, no hydronephrosis. Urinary bladder is slightly distended Condition at Discharge: Good Final Diagnosis/Problems List # Acute on Chronic depression with suicidal ideation # Hypercalcemia # hypertriglyceridemia # history of recently diagnosed type 2 diabetes mellitus # peripheral neuropathy # constipation Discharge Disposition: Home Discharge Instruct/Medications Diet: Regular Diet comment: low calcium diet Activity: No Restrictions, As Tolerated Follow Up/Referral: Follow up in the Discharge clinic in one week on wednesday05/01/2024 Follow up with Psychiatry in the outpatient clinic in 1-2 weeks Follow up with the PCP in one week. Medications: as per EMR Discharge Statement: "Patient was advised to return to the ER or call 911 if any headaches, dizziness, shortness of breath, chest pain, abdominal pain, bleeding, fevers, or worsening of medical condition. Patient was counseled about treatment plan, medications, possible side effects, patientverbalized understanding. All questions were answered to the best of my ability. This discharge took greater then 30 minutes in planning, reviewing documentation, counseling the patient, and discussing with other team members." ASSESSMENT ASSESSMENT Assessment # Acute on Chronic depression with suicidal ideation # Hypercalcemia # hypertriglyceridemia # history of recently diagnosed type 2 diabetes mellitus # peripheral neuropathy # constipation Date of Service: Apr 24, 2024 Billing Provider: KARINA LOPEZ MD Common Visit Codes: 45750-III/OBS DISCH DAY >30min SUMIT GUEVARA RESIDENT Apr 24, 2024 18:09 KARINA LOPEZ MD May 01, 2024 00:13
== END 2024-04-24 10:30 | disposition home or self-care (01) | DRG 644 ==
LOC: ER 16:41 → EDBD 16:41 → OVERFLOW 04-14 13:01 → WEST WING 04-15 18:54
PROVIDERS: ADMIT Internal Medicine; ATTEND Internal Medicine
DX: E21.0 Primary hyperparathyroidism (principal); F33.1 Major depressive disorder, recurrent, moderate; R45.851 Suicidal ideations; N17.9 Acute kidney failure, unspecified; E11.42 Type 2 diabetes mellitus with diabetic polyneuropathy; E86.0 Dehydration; E66.9 Obesity, unspecified; N18.9 Chronic kidney disease, unspecified; F41.9 Anxiety disorder, unspecified; E78.1 Pure hyperglyceridemia; M10.9 Gout, unspecified; J45.909 Unspecified asthma, uncomplicated; I12.9 Hypertensive chronic kidney disease with stage 1 through stage 4 chronic kidney disease, or unspecified chronic kidney disease; F17.210 Nicotine dependence, cigarettes, uncomplicated; F43.23 Adjustment disorder with mixed anxiety and depressed mood; K59.00 Constipation, unspecified; E03.9 Hypothyroidism, unspecified; Z87.442 Personal history of urinary calculi; Z80.3 Family history of malignant neoplasm of breast; Z79.4 Long term (current) use of insulin; Z68.38 Body mass index [BMI] 38.0-38.9, adult; D35.1 Benign neoplasm of parathyroid gland
CPT/HCPCS: 36415; 71045; 76775; 78070; 80048; 80053; 80061; 80307; 80320; 80329; 81001; 82306; 82570; 82607; 82962; 83036; 83735; 83970; 84100; 84300; 84443; 85025; 86803; 87081; 87340; G0378; J1815; J1885; J3489

== ENCOUNTER 2024-08-02 02:00 | Emergency (ER) | payer OTHER, MEDICAID ==
[~2024-08-02] VITALS: Ht 175.3 cm; Wt 118.0 kg
[~2024-08-02 02:00] MED LIST changes: +ATOR20TA50 PO; +LACT10SO3 PO; +METF-370 PO; +OLAN1TAB7 PO; +TAMS-35 PO; +VENL37.572 PO
[2024-08-02 02:52] LABS: Basophils # (auto) 0.1 10 ^3/uL (0-0.2); Eosinophils # (auto) 0.2 10 ^3/uL (0-0.8); Lymphocytes # (auto) 2.1 10 ^3/uL (0.4-5.4); Monocytes # (auto) 0.9 10 ^3/uL (0-1.3); Neutrophils # (auto) 6.9 10 ^3/uL (1.6-8.6)
[2024-08-02 02:54] LABS: Basophils % (auto) 1.1 % (0.0-2.0); Hematocrit 51.9 % (41.0-53.0); Hemoglobin 18.7 g/dL (13.5-17.5); Lymphocytes % (auto) 20.7 % (10.0-50.0); Mean Corpuscular Hemoglobin 35.3 pg (28.0-32.0); Mean Corpuscular Hgb Conc. 36.1 g/dL (32.0-36.0); Mean Corpuscular Volume 97.8 fL (80.0-100.0); Neutrophils % (auto) 67.2 % (37.0-80.0); Nucleated Red Blood Cells % 0.1 %; Platelet Count (auto) 287 10^3/uL (140-450); Red Blood Cells 5.31 10^6/uL (4.5-5.90); White Blood Cell 10.2 10^3/uL (4.4-10.8)
--- NOTE | 2024-08-02 03:12 | ED.PDOC ---
History of Present Illness HPI Comments This is a 53-year-old male that is brought in by ambulance from local crisis center for suicidal and homicidal ideations and auditory hallucinations, today. Patient endorses on having symptoms for the past 2-3 days, due to onset of pain in his left shoulder, that radiates to his left hand and beginning to develop in his right shoulder, worsening for the past 4-5 days. He comments on auditory hallucinations involving "voices" in his head telling him to harm himself and others and having a current plan to end his life by overdosing with his pain medications. Patient has a reported history of chronic depression and anxiety with previous onset of suicidal ideations, hypertriglyceridemia, DMII, peripheral neuropathy, and obesity. Patient also reports on running out of his Abilify and venlafaxine medications 2x weeks ago from today and has not been taking any depression medication since then. He denies any visual hallucinations, suicidal attempts, arm numbness, tingling, weakness, or other associated symptoms or modifiers at this time. Chief Complaint: Suicidal Time Seen by MD: 03:00 Primary Care Provider: " I DON'T HAVE ONE" Allergies: Coded Allergies: Thioridazine (Verified Allergy, Unknown, 04/17/24) Home Meds Active Scripts Metformin Hydrochloride (Metformin Hcl) 500 Mg Tab, 1 TAB PO BID for 30 Days, #60 TAB 1 Refill Prov:MEDINA SCHWARTZ RESIDENT 04/24/24 Venlafaxine Hydrochloride (Effexor Xr) 37.5 Mg Cap, 150 MG PO DAILY for 30 Days, #120 CAP 1 Refill Prov:MEDINA SCHWARTZ [facility] 04/24/24 Tamsulosin Hcl (Flomax) 0.4 Mg Cap, 0.4 MG PO QPM for 30 Days, #30 CAP 1 Refill Prov:MEDINA SCHWARTZ [facility] 04/24/24 Olanzapine (OLANZAPINE) 5 Mg Tab, 5 MG PO DAILY for 30 Days, #30 TAB 1 Refill Prov:MEDINA SCHWARTZ 04/24/24 Lactulose (Lactulose) 10 Gm/15 Ml Kiara, 10 GM PO DAILY PRN for 30 Days, #300 ML Prov:MEDINA SCHWARTZ [facility] 04/24/24 Atorvastatin Calcium (ATORVASTATIN CALCIUM) 20 Mg Tab, 40 MG PO HS for 30 Days, #60 TAB 1 Refill Prov:MEDINA SCHWARTZ 04/24/24 Naproxen (NAPROSYN TABLET) 500 Mg Tb, 1 TAB PO BID PRN, #30 TAB 0 Refills Prov:JOSE GILBERT 12/16/22 Mirtazapine (Mirtazapine Oral Disintegrating Tablet) 7.5 Mg Tab, 7.5 MG PO HS for 30 Days, #30 TAB Prov:AME BOWENS MD 09/06/22 Buspirone Hcl (Buspirone Hcl) 10 Mg Tab, 10 MG PO BID for 30 Days, #60 TAB Prov:AME BOWENS MD 09/06/22 Sertraline Hcl (Sertraline Hcl) 50 Mg Tab, 50 MG PO DAILY, #30 MG Prov:AME BOWENS MD 09/06/22 Gabapentin (Gabapentin) 300 Mg Cap, 2 CAP PO TID, #90 CAP 1 Refill Prov:LEXX KRUEGER MD 06/23/22 Ibuprofen Micronized (Ibuprofen) 800 Mg Tab, 1 TAB PO TID, #90 TAB Prov:LEXX KRUEGER MD 06/23/22 Reported Medications Oxycodone W/ Acetaminophen (Oxycodone/Acetaminophen 10-300 mg) 1 Tab Tab 06/22/22 Aspirin (ASPIRIN 81) 81 Mg Tab, 81 MG OR DAILY, TAB 06/22/22 Trazodone Hcl (Trazodone Hcl) 50 Mg Tab, 50 MG PO DAILY, TAB 06/22/22 Mode of Arrival: EMS Past Medical History PAST MEDICAL HISTORY: Anxiety, Asthma, Depression, Gout, High Lipids, HTN, Kidney Stones, Thyroid Surgical History: Unknown Family History Family History: Family hx of Cancer Social History Smoker: Cigarettes Alcohol: Denies ETOH Use Drugs: Denies Drug Use Lives In: Home X-Ray, Labs, Meds, VS Vital Signs Date Time Temp Pulse Resp B/P (MAP) Pulse Ox O2 Delivery O2 Flow Rate FiO2 08/02/24 02:08 98.2 74 19 158/105 (122) 95 Lab Test 08/02/24 02:41 Range/Units White Blood Count 10.2 4.4-10.8 10^3/uL Red Blood Count 5.31 4.5-5.90 10^6/uL Hemoglobin 18.7 H 13.5-17.5 g/dL Hematocrit 51.9 41.0-53.0 % Mean Corpuscular Volume 97.8 80.0-100.0 fL Mean Corpuscular Hemoglobin 35.3 H 28.0-32.0 pg Mean Corpuscular Hemoglobin Concent 36.1 H 32.0-36.0 g/dL Red Cell Distribution Width 14.0 11.8-14.3 % Platelet Count 287 140-450 10^3/uL Mean Platelet Volume 7.3 6.9-10.8 fL Neutrophils (%) (Auto) 67.2 37.0-80.0 % Lymphocytes (%) (Auto) 20.7 10.0-50.0 % Monocytes (%) (Auto) 9.0 0.0-12.0 % Eosinophils (%) (Auto) 2.0 0.0-7.0 % Basophils (%) (Auto) 1.1 0.0-2.0 % Neutrophils # (Auto) 6.9 1.6-8.6 10 ^3/uL Lymphocytes # (Auto) 2.1 0.4-5.4 10 ^3/uL Monocytes # (Auto) 0.9 0-1.3 10 ^3/uL Eosinophils # (Auto) 0.2 0-0.8 10 ^3/uL Basophils # (Auto) 0.1 0-0.2 10 ^3/uL Nucleated Red Blood Cells 0.1 % Sodium Level Pending Potassium Level Pending Chloride Level Pending Carbon Dioxide Level Pending Anion Gap Pending Blood Urea Nitrogen Pending Creatinine Pending Glomerular Filtration Rate Calc Pending BUN/Creatinine Ratio Pending Serum Glucose Pending Calcium Level Pending Total Bilirubin Pending Aspartate Amino Transferase (AST) Pending Alanine Aminotransferase (ALT) Pending Alkaline Phosphatase Pending Total Protein Pending Albumin Pending Plasma/Serum Blood Alcohol Pending Time of 1ST Reevaluation: 03:30 I personally scribed for KYRIE GAITAN MD ([email or web address]) on 08/02/24 at 03:12. Electronically submitted by Swapnil Scott ([email or web address]). I personally scribed for KYRIE GAITAN MD ([email or web address]) on 08/02/24 at 03:26. Electronically submitted by Swapnil Scott ([email or web address]). KYRIE GAITAN MD Aug 02, 2024 03:12
[2024-08-02 03:27] LABS: Alkaline Phosphatase 69 U/L (46-116); Anion Gap 8 (5-15); Aspartate Aminotransferase 25 U/L (13-40); BUN/Creatinine Ratio 12.2 (10.0-20.0); Bilirubin, Total 0.5 mg/dL (0.2-1.0); Blood Urea Nitrogen 14 mg/dL (9-23); Carbon Dioxide 23 mmol/L (20-31); Potassium 4.1 mmol/L (3.5-5.1); Sodium 139 mmol/L (136-145); Total Protein 7.6 g/dL (5.7-8.2)
[2024-08-02 03:40] LABS: Alanine Aminotransferase 43 U/L (7-40); Albumin 5.1 g/dL (3.2-4.8); Blood Alcohol < 3.0 mg/dL (<10); Calcium 11.7 mg/dL (8.7-10.4); Chloride 108 mmol/L (98-107); Glucose 148 mg/dL (74-106)
--- NOTE | 2024-08-02 03:40 | ED.PDOC ---
History of Present Illness HPI Comments This is a 53-year-old male that is brought in by ambulance from local crisis center for suicidal and homicidal ideations and auditory hallucinations, today. Patient endorses on having symptoms for the past 2-3 days, due to onset of pain in his left shoulder, that radiates to his left hand and beginning to develop in his right shoulder, worsening for the past 4-5 days. 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 His current pain regimen is not helping his pain. He comments on auditory hallucinations involving "voices" in his head telling him to harm himself and others and having a current plan to end his life by overdosing with his pain medications. Patient has a reported history of chronic depression and anxiety with previous onset of suicidal ideations, hypertriglyceridemia, DMII, peripheral neuropathy, asthma, gout, HLD, HTN, kidney stones, thyroid disease and obesity. Patient also reports on running out of his psychiatric medications 3x weeks ago from today and has not been taking any since then. He denies any visual hallucinations, suicidal attempts, arm numbness, tingling, weakness, or other associated symptoms or modifiers at this time. Chief Complaint: Suicidal Time Seen by MD: 02:20 Primary Care Provider: " I DON'T HAVE ONE" Reviewed Notes: Nurses Notes, Antique Clock Repairer Notes, Medications, Allergies Allergies: Coded Allergies: Thioridazine (Verified Allergy, Unknown, 04/17/24) Home Meds Active Scripts Metformin Hydrochloride (Metformin Hcl) 500 Mg Tab, 1 TAB PO BID for 30 Days, #60 TAB 1 Refill Prov:MEDINA SCHWARTZ RESIDENT 04/24/24 Venlafaxine Hydrochloride (Effexor Xr) 37.5 Mg Cap, 150 MG PO DAILY for 30 Days, #120 CAP 1 Refill Prov:MEDINA SCHWARTZ RESIDENT 04/24/24 Tamsulosin Hcl (Flomax) 0.4 Mg Cap, 0.4 MG PO QPM for 30 Days, #30 CAP 1 Refill Prov:MEDINA SCHWARTZ RESIDENT 04/24/24 Olanzapine (OLANZAPINE) 5 Mg Tab, 5 MG PO DAILY for 30 Days, #30 TAB 1 Refill Prov:MEDINA SCHWARTZ RESIDENT 04/24/24 Lactulose (Lactulose) 10 Gm/15 Ml Kiara, 10 GM PO DAILY PRN for 30 Days, #300 ML Prov:MEDINA SCHWARTZ RESIDENT 04/24/24 Atorvastatin Calcium (ATORVASTATIN CALCIUM) 20 Mg Tab, 40 MG PO HS for 30 Days, #60 TAB 1 Refill Prov:MEDINA SCHWARTZ RESIDENT 04/24/24 Naproxen (NAPROSYN TABLET) 500 Mg Tb, 1 TAB PO BID PRN, #30 TAB 0 Refills Prov:JOSE GILBERT 12/16/22 Mirtazapine (Mirtazapine Oral Disintegrating Tablet) 7.5 Mg Tab, 7.5 MG PO HS for 30 Days, #30 TAB Prov:AME BOWENS MD 09/06/22 Buspirone Hcl (Buspirone Hcl) 10 Mg Tab, 10 MG PO BID for 30 Days, #60 TAB Prov:AME BOWENS MD 09/06/22 Sertraline Hcl (Sertraline Hcl) 50 Mg Tab, 50 MG PO DAILY, #30 MG Prov:AME BOWENS MD 09/06/22 Gabapentin (Gabapentin) 300 Mg Cap, 2 CAP PO TID, #90 CAP 1 Refill Prov:LEXX KRUEGER MD 06/23/22 Ibuprofen Micronized (Ibuprofen) 800 Mg Tab, 1 TAB PO TID, #90 TAB Prov:LEXX KRUEGER MD 06/23/22 Reported Medications Oxycodone W/ Acetaminophen (Oxycodone/Acetaminophen 10-300 mg) 1 Tab Tab 06/22/22 Aspirin (ASPIRIN 81) 81 Mg Tab, 81 MG OR DAILY, TAB 06/22/22 Trazodone Hcl (Trazodone Hcl) 50 Mg Tab, 50 MG PO DAILY, TAB 06/22/22 Information Source: Patient, Emergency Med Personnel Mode of Arrival: EMS Severity: Moderate Review of Systems: REVIEW OF SYSTEMS: No fever, no chills, or fatigue HEENT: No sore throat, no earache, no congestion, no neck pain. Cardiac: No chest pain. No palpitations. Lungs: No shortness of breath, no cough. GI: No nausea, no vomiting, no diarrhea, no constipation, no abdominal pain : No dysuria, frequency, or urgency. No hematuria. Musculoskeletal: Bilateral arm pain , no joint swelling, no extremity edema. Skin: No rash, no itching. Neuro: No headache, no dizziness, no weakness Psych: suicidal&homicidal ideations, auditory hallucinations Vital Signs Vital Signs Date Time Temp Pulse Resp B/P (MAP) Pulse Ox O2 Delivery O2 Flow Rate FiO2 08/02/24 02:08 98.2 74 19 158/105 (122) 95 Physical Exam General: Awake, alert and oriented. No acute distress. Skin: Skin in warm, dry and intact without rashes or lesions. HEENT: The head is normocephalic and atraumatic. Conjunctivae are clear without exudates or hemorrhage. Sclera is non-icteric. Neck: Normal range of motion. No JVD. Cardiac: Regular rate Respiratory: No signs of respiratory distress. No Stridor. Extremities: History of range of motion of left shoulder. No obvious deformity, edema or overlying skin changes. Neurological: The patient is awake, alert and oriented to person, place, and time with normal speech. Speech is clear. There is no facial asymmetry. Psychiatric: Tearful affect Past Medical History PAST MEDICAL HISTORY: Anxiety, Asthma, Depression, DM (II w/neuropathy ), Gout, HTN, Kidney Stones, Thyroid Past Medical History (Other): heel spur, suicidal ideations, hypertriglyceridemia Surgical History: Denies all surgeries Family History Family History: Family hx of Cancer Social History Smoker: Cigarettes Alcohol: Denies ETOH Use Drugs: Denies Drug Use Lives In: Home Was a procedure done? Was a procedure done?: No Differential Dx Considerations may include: suicidal ideations, homicidal ideations, schizoaffective disorder, bipolar disorder, depression, hopelessness, gout X-Ray, Labs, Meds, VS Vital Signs Date Time Temp Pulse Resp B/P (MAP) Pulse Ox O2 Delivery O2 Flow Rate FiO2 08/02/24 02:08 98.2 74 19 158/105 (122) 95 Lab Test 08/02/24 02:51 08/02/24 02:41 Range/Units Urine Color Yellow Yellow Urine Clarity Turbid H Clear Urine pH 6.0 5.0-9.0 Urine Specific [place] 1.030 1.001-1.035 Urine Protein 1+ H Negative Urine Ketones Trace Negative Urine Blood Negative Negative /uL Urine Nitrite Negative Negative Urine Bilirubin Negative Negative Urine Urobilinogen 3 H Negative mg/dL Urine Leukocyte Esterase Negative Negative /uL Urine RBC 1 0 - 3 /hpf Urine Microscopic WBC 4 H 0-3 /HPF Urine Squamous Epithelial Cells Few <5 /hpf Urine Calcium Oxalate Crystals Few None Seen Urine Bacteria None seen None Seen /hpf Urine Mucus Few None Seen Urine Glucose Normal Normal mg/dL Urine Opiates Screen Neg NEGATIVE Urine Fentanyl Screen Neg NEGATIVE Urine Barbiturates Screen Neg NEGATIVE Urine Phencyclidine Screen Neg NEGATIVE Urine Amphetamines Screen Neg NEGATIVE Urine Benzodiazepines Screen Neg NEGATIVE Urine Cocaine Screen Neg NEGATIVE Urine Cannabinoids Screen Neg NEGATIVE White Blood Count 10.2 4.4-10.8 10^3/uL Red Blood Count 5.31 4.5-5.90 10^6/uL Hemoglobin 18.7 H 13.5-17.5 g/dL Hematocrit 51.9 41.0-53.0 % Mean Corpuscular Volume 97.8 80.0-100.0 fL Mean Corpuscular Hemoglobin 35.3 H 28.0-32.0 pg Mean Corpuscular Hemoglobin Concent 36.1 H 32.0-36.0 g/dL Red Cell Distribution Width 14.0 11.8-14.3 % Platelet Count 287 140-450 10^3/uL Mean Platelet Volume 7.3 6.9-10.8 fL Neutrophils (%) (Auto) 67.2 37.0-80.0 % Lymphocytes (%) (Auto) 20.7 10.0-50.0 % Monocytes (%) (Auto) 9.0 0.0-12.0 % Eosinophils (%) (Auto) 2.0 0.0-7.0 % Basophils (%) (Auto) 1.1 0.0-2.0 % Neutrophils # (Auto) 6.9 1.6-8.6 10 ^3/uL Lymphocytes # (Auto) 2.1 0.4-5.4 10 ^3/uL Monocytes # (Auto) 0.9 0-1.3 10 ^3/uL Eosinophils # (Auto) 0.2 0-0.8 10 ^3/uL Basophils # (Auto) 0.1 0-0.2 10 ^3/uL Nucleated Red Blood Cells 0.1 % Sodium Level 139 136-145 mmol/L Potassium Level 4.1 3.5-5.1 mmol/L Chloride Level 108 H 98-107 mmol/L Carbon Dioxide Level 23 20-31 mmol/L Anion Gap 8 5-15 Blood Urea Nitrogen 14 9-23 mg/dL Creatinine 1.15 0.700-1.30 mg/dL Glomerular Filtration Rate Calc 76 >90 mL/min BUN/Creatinine Ratio 12.2 10.0-20.0 Serum Glucose 148 H 74-106 mg/dL Calcium Level 11.7 H 8.7-10.4 mg/dL Total Bilirubin 0.5 0.2-1.0 mg/dL Aspartate Amino Transferase (AST) 25 13-40 U/L Alanine Aminotransferase (ALT) 43 H 7-40 U/L Alkaline Phosphatase 69 46-116 U/L Total Protein 7.6 5.7-8.2 g/dL Albumin 5.1 H 3.2-4.8 g/dL Plasma/Serum Blood Alcohol < 3.0 <10 mg/dL Current Medications Medications (Trade) Dose Ordered Sig/Iftikhar Route Start Time Stop Time Status Last Admin Gabapentin (Neurontin Capsule) 300 mg ONCE ONCE PO 08/02/24 04:45 08/02/24 04:46 DC 08/02/24 05:33 Ketorolac Tromethamine (Toradol Injection) 60 mg ONCE ONCE IM 08/02/24 04:45 08/02/24 04:46 DC 08/02/24 05:33 Lorazepam (Ativan Tablet) 1 mg ONCE ONCE PO 08/02/24 05:15 08/02/24 05:16 DC 08/02/24 05:32 Venlafaxine HCl (Effexor Xr) 150 mg ONCE ONCE PO 08/02/24 05:15 08/02/24 05:16 DC 08/02/24 05:32 Time of 1ST Reevaluation: 02:50 Reevaluation 1ST: Unchanged Patient Education/Counseling: Treatment Family Education/Counseling: No Family Present Departure 1 Departure Time of Disposition: 05:42 Impression: Primary Impression: Suicidal thoughts Additional Impressions: Adjustment disorder Moderate developmental delay Left shoulder pain Disposition: 30 STILL A PATIENT Condition: Stable Comments 53-year-old male who presented to the emergency department with suicidal ideation secondary to severe uncontrollable chronic pain of his left shoulder. Patient was evaluated by Dr. Khan was recommendation is " Primary Diagnosis: Adjustment disorder with depressed mood. Depressive disorder unspecified. R/o MDD, moderate. Recommend vol transfer to inpt psych facility for higher level of care, 1:1 sitter is recommended , Recommend continuation/restarting of previous outpt med regimen - Abilify 5 mg po QD and Venlafaxine XR 150 mg. QD - first dose of both meds now. One time dose of ativan 1 mg po now per pts request " no Abilify available at the pharmacy. We will give dose of Ativan. Pending transfer to inpatient psychiatric facility. Extensive evaluation was performed in attempt to identify or rule out: (See differential diagnosis section) The following tests were ordered, and results were reviewed by me: (See diagnostic results section) The following test were independently interpreted by me: N/A I reviewed and agreed with the following test results read by other providers: N/A I reviewed the following notes from the pt's past medical encounters: April 14, 2024 encounter for hypercalcemia Additional information was gathered from interviewing the following independent historians: EMS personnel Discussion of management or test interpretation with external physician/other qualified health healthcare educator: N/A Decision regarding hospitalization or escalation of hospital level of care: Risk and benefits of admission for further treatment of patient's condition was considered. Due to patient's current clinical condition, high risk of decline and poor outcome if discharged and need for further inpatient management and monitoring, patient will be admitted to the hospital. Critical Care Note Critical Care Time?: No Stability Stability form required: No Heart Score Heart Score: Heart Score Response (Comments) Value History N/A 0 EKG N/A 0 Age N/A 0 Risk Factors N/A 0 Troponin N/A 0 Total 0 I personally scribed for KYRIE GAITAN MD ([email or web address]) on 08/02/24 at 03:40. Electronically submitted by Swapnil Scott ([email or web address]). KYRIE GAITAN MD Aug 02, 2024 03:40
[2024-08-02 04:03] LABS: Urine Bacteria None Seen /hpf (None Seen)
[2024-08-02 04:29] LABS: Urine Blood Negative /uL (Negative); Urine Clarity Turbid (Clear); Urine Color Yellow (Yellow); Urine Mucus FEW (None Seen); Urine Protein, UAD 1+ (Negative); Urine Squamous Epithelial Cell FEW /hpf (<5); Urine Urobilinogen 3 mg/dL (Negative); Urine WBC 4 /HPF (0-3)
[2024-08-02 04:42] LABS: Amphetamine Screen, Urine Neg (NEGATIVE)
[2024-08-02 04:43] LABS: Barbiturate Scree,Urine Neg (NEGATIVE); Benzodiazephine Screen, Urine Neg (NEGATIVE); Cannabinoid Screen, Urine Neg (NEGATIVE); Cocaine Screen, Urine Neg (NEGATIVE); Opiate Scree,Urine Neg (NEGATIVE); Phencyclidine Screen, Urine Neg (NEGATIVE)
--- NOTE | 2024-08-02 04:47 | DVHINCON2 ---
Date of Service if different f: Aug 02, 2024 Time of Service: 04:45 Consult Consult Note PSYCHIATRY ED NEW CONSULT HPI: 53 yo pt with PPH of depression and anxiety presents to ED BIBA for safety, psychiatric stabilization and possible med initiation/optimization in setting of shoulder pain, depression, and passive SI. Psychiatry consulted for safety evaluation and recommendations in context of current presentation Per pt, reports hx of chronic depression often mixed with anxiety, over past several weeks experiencing worsening depressed mood, hopelessness, helplessness, negative thoughts, isolation, loss of interest, CAH to hurt self, decreased energy, difficulty with concentration, poor sleep, anhedonia, amotivation and non-specific anxiety symptoms. Also intermittent SI that are fleeting, earlier had plan to OD on pain meds although no intent. Reports some interference with daily functioning. Reports primary stress as recent excruciating shoulder pain that's radiating for past week and passing of his GF from cancer late last year. No overt manic, psychotic, cognitive, dissociative phenomena, panic, or somatic symptoms noted. Pt currently does not have psychiatrist/therapist out in community although has sought outpt services in past. Currently not on any psychotropic agents for past several weeks due to "I lost my meds". Most recently rx'd abilify, effexor. Denies self medicating mood symptoms with ETOH, THC or IDU Never , no children, unemployed, lives with friend, no legal issues, limited support system noted. Unknown trauma hx. Unknown FH No acute medical issues although complains of diffuse body aches, ongoing shoulder pain and multiple chronic medical issues. Denies hx of seizures/TBI, or recent head injuries, NKDA Does have hx of suicide attempts resulting in prior psych hospitalizations including most recent several months ago for SI. Denies history of violence, unprovoked aggression, or assaultive behaviors. Denies recent hx of impulsivity, attention seeking behaviors, anger outbursts, emotional dysregulation, mood reactivity or engaging in risky behaviors. Does not have access to firearms. Currently endorses passive SI. Denies HI. MSE: General Appearance/Behavior: Alert and awake; appears older than stated age, overweight, fair grooming and hygiene; somewhat tearful, calm and cooperative, no PMA/PMR Speech: coherent, rrr Thought Process: linear, logical, bit hopeless Thought Content: Abnormal Thoughts and Perceptions: None Homicidality / Violent Thoughts: None Suicidality: passive SI Hallucinations: denies AVH Delusions: denies paranoia, persecutory, or grandiose delusions Obsessions /compulsions : None Judgment and Insight: fair judgment with fair insight Mood & Affect: "depressed" with mood-congruent, constricted/restricted, appropriate Orientation: oriented to person, place, time Attention/Concentration: appears intact Memory: grossly intact Language: no unusual or inappropriate language A/P: 53 yo pt with PPH of depression and anxiety presents to ED BIBA for safety, psychiatric stabilization and possible med initiation/optimization in setting of shoulder pain, depression, and passive SI Pt is currently expressing some SI with moderate interference in daily functioning in context of several recent life stressors and acute shoulder pain (see hpi). Limited protective factors presently. Not on any psychotropics for past several weeks which maybe contributing to current symptoms. No outpt MH services at present. Pt agrees to talk with staff instead of acting on any suicidal feelings while in ED. Thus, acute risk is moderate and hence is appropriate for inpatient psychiatry admission. Pt will benefit from inpatient psych admission for safety, psychiatric stabilization and possible medication re-initiation. Pt willing to transfer to inpt psych hospitalization voluntarily. Consider 5150 hold for DTS only if needed for transfer or if no voluntary beds are available Primary Diagnosis: Adjustment disorder with depressed mood. Depressive disorder unspecified. R/o MDD, moderate Recommend vol transfer to inpt psych facility for higher level of care 1:1 sitter is recommended Recommend continuation/restarting of previous outpt med regimen - Abilify 5 mg po QD and Venlafaxine XR 150 mg QD - first dose of both meds now One time dose of ativan 1 mg po now per pts request Risks/benefits/alternative treatments discussed, informed consent provided by pt If patient later refuses voluntary hospitalization/requests to be discharged from ED prior to transfer, please reconsult telepsych services to evaluate for 5150 hold. Pt verbalized understanding and is receptive to above tx plan This case was discussed with ED nurse/provider and all parties in agreement with above tx plan Leonardo Khan MD Plan discussed with: Patient LEONARDO KHAN MD Aug 02, 2024 04:47
[2024-08-02] MEDS: LORazepam 0.5 MG TAB PO ONE (05:32)
[2024-08-02] MEDS: VENLAFAXINE HCL 37.5mg XR cap PO ONE (05:32)
[2024-08-02] MEDS: GABAPENTIN 300 MG CAP PO ONE (05:33)
[2024-08-02] MEDS: KETOROLAC TROMETH 60MG/2ML VIAL IM ONE (05:33)
--- NOTE | 2024-08-02 05:46 | DVH ---
CLINICAL INDICATION: Left shoulder pain TECHNIQUE: XY L SHOULDER 2+ VIEW XRAY Comparison: None FINDINGS/IMPRESSION: : There is no evidence of acute fracture or dislocation. 0.6 cm ossific density at the lateral margin of the proximal humerus possibly relating to the rotator cuff interval. Differential considerations could include chronic degenerative change versus calcific tendinitis. Clinical correlation advised.
[2024-08-02 07:57] VITALS: PULSE 74; RESP 20; O2SAT 94
[2024-08-02] MEDS: VENLAFAXINE HCL 37.5mg XR cap PO SCH (09:59)
[2024-08-02 12:45] VITALS: BP 144/85; PULSE 62; RESP 20; TEMP 98.2; O2SAT 94
== END 2024-08-02 13:05 | disposition short-term general hospital (02) ==
LOC: ER 02:00 → EDBD 02:00 → ER 13:05
DX: R45.851 Suicidal ideations (principal); R45.850 Homicidal ideations; F43.23 Adjustment disorder with mixed anxiety and depressed mood; M25.512 Pain in left shoulder; M25.511 Pain in right shoulder; R62.59 Other lack of expected normal physiological development in childhood; I10 Essential (primary) hypertension; E11.42 Type 2 diabetes mellitus with diabetic polyneuropathy; E66.9 Obesity, unspecified; E78.1 Pure hyperglyceridemia; F17.210 Nicotine dependence, cigarettes, uncomplicated; J45.909 Unspecified asthma, uncomplicated; M10.9 Gout, unspecified; Z79.82 Long term (current) use of aspirin; Z79.84 Long term (current) use of oral hypoglycemic drugs; Z79.899 Other long term (current) drug therapy; Z87.442 Personal history of urinary calculi; Z98.890 Other specified postprocedural states; Z88.8 Allergy status to other drugs, medicaments and biological substances
CPT/HCPCS: 36415; 73030; 80053; 80307; 80320; 81001; 85025; 96372; 99285; J1885

== ENCOUNTER 2024-12-24 12:15 | Inpatient (IN) | payer OTHER, MEDICAID ==
[~2024-12-24] VITALS: Ht 175.3 cm; Wt 116.8 kg
--- NOTE | 2024-12-24 12:49 | ECG ---
[facility] Test Date: 2024-12-24 Test Time: 12:23:31 Pat Name: CHANTELLE ANGEL Department: ED Room: [address] [place] [address] Gender: M Alarm Technician: CINTHYA : 1970 Requested By: MAIRA PETERSON Order Number: [id number] Reading MD: Marc Aguiar Measurements Intervals [place] Rate: 82 P: 38 MD: 166 QRS: 32 QRSD: 87 T: 63 QT: 369 QTc: 431 Interpretive Statements Sinus rhythm Inferior infarct, old Baseline wander in lead(s) II,III,aVR,aVF,V2 Electronically Signed On 12-25-2024 22:07:56 PDT by Marc Aguiar Please click the below link to view image of tracing.
[2024-12-24 13:31] LABS: Hematocrit 46.7 % (41.0-53.0); Hemoglobin 16.9 g/dL (13.5-17.5); Mean Corpuscular Hemoglobin 35.3 pg (28.0-32.0); Mean Corpuscular Volume 97.6 fL (80.0-100.0); Nucleated Red Blood Cells % 0.1 %
[2024-12-24 13:42] LABS: Chloride 106 mmol/L (98-107); Potassium 4.1 mmol/L (3.5-5.1); Sodium 140 mmol/L (136-145)
[2024-12-24 13:43] LABS: Anion Gap 11 (5-15); Carbon Dioxide 23 mmol/L (20-31)
[2024-12-24 13:48] LABS: BUN/Creatinine Ratio 10.1 (10.0-20.0); Blood Urea Nitrogen 13 mg/dL (9-23)
[2024-12-24 13:49] LABS: Calcium 12.3 mg/dL (8.7-10.4); Glucose 141 mg/dL (74-106)
--- NOTE | 2024-12-24 16:15 | ED.PDOC ---
History of Present Illness HPI Comments 54-year-old male brought by paramedics because he is having anxiety attack with chest pain started at 3:00 a.m.. He continues to have chest pain in the ER with no radiation of the pain. Chest pain associated with shortness a breath. Does have a history of hypotension diabetes anxiety. Heart rate 82. Saturation pristine on room air. Denies any other symptoms. Chief Complaint: Anxiety Time Seen by MD: 12:45 Primary Care Provider: " I DON'T HAVE ONE" Reviewed Notes: Nurses Notes, Medications, Allergies Allergies: Coded Allergies: Thioridazine (Verified Allergy, Unknown, 04/17/24) Home Meds Active Scripts Metformin Hydrochloride (Metformin Hcl) 500 Mg Tab, 1 TAB PO BID for 30 Days, #60 TAB 1 Refill Prov:MEDINA SCHWARTZ [facility] 04/24/24 Venlafaxine Hydrochloride (Effexor Xr) 37.5 Mg Cap, 150 MG PO DAILY for 30 Days, #120 CAP 1 Refill Prov:MEDINA SCHWARTZ [facility] 04/24/24 Tamsulosin Hcl (Flomax) 0.4 Mg Cap, 0.4 MG PO QPM for 30 Days, #30 CAP 1 Refill Prov:MEDINA SCHWARTZ [facility] 04/24/24 Olanzapine (OLANZAPINE) 5 Mg Tab, 5 MG PO DAILY for 30 Days, #30 TAB 1 Refill Prov:MEDINA SCHWARTZ [facility] 04/24/24 Lactulose (Lactulose) 10 Gm/15 Ml Kiara, 10 GM PO DAILY PRN for 30 Days, #300 ML Prov:MEDINA SCHWARTZ [facility] 04/24/24 Atorvastatin Calcium (ATORVASTATIN CALCIUM) 20 Mg Tab, 40 MG PO HS for 30 Days, #60 TAB 1 Refill Prov:MEDINA SCHWARTZ [facility] 04/24/24 Naproxen (NAPROSYN TABLET) 500 Mg Tb, 1 TAB PO BID PRN, #30 TAB 0 Refills Prov:JOSE GILBERT 12/16/22 Mirtazapine (Mirtazapine Oral Disintegrating Tablet) 7.5 Mg Tab, 7.5 MG PO HS for 30 Days, #30 TAB Prov:AME BOWENS MD 09/06/22 Buspirone Hcl (Buspirone Hcl) 10 Mg Tab, 10 MG PO BID for 30 Days, #60 TAB Prov:AME BOWENS MD 09/06/22 Sertraline Hcl (Sertraline Hcl) 50 Mg Tab, 50 MG PO DAILY, #30 MG Prov:AME BOWENS MD 09/06/22 Gabapentin (Gabapentin) 300 Mg Cap, 2 CAP PO TID, #90 CAP 1 Refill Prov:LEXX KRUEGER MD 06/23/22 Ibuprofen Micronized (Ibuprofen) 800 Mg Tab, 1 TAB PO TID, #90 TAB Prov:LEXX KRUEGER MD 06/23/22 Reported Medications Oxycodone W/ Acetaminophen (Oxycodone/Acetaminophen 10-300 mg) 1 Tab Tab 06/22/22 Aspirin (ASPIRIN 81) 81 Mg Tab, 81 MG OR DAILY, TAB 06/22/22 Trazodone Hcl (Trazodone Hcl) 50 Mg Tab, 50 MG PO DAILY, TAB 06/22/22 Information Source: Patient, Emergency Med Personnel Mode of Arrival: EMS Severity: Moderate Timing: Days Duration: Since onset Past Medical History PAST MEDICAL HISTORY: Anxiety, Asthma, Depression, DM, Gout, HTN, Kidney Stones, Thyroid Surgical History: Denies all surgeries Family History Family History: Family hx of Cancer Social History Smoker: Cigarettes Alcohol: Denies ETOH Use Drugs: Denies Drug Use Lives In: Home Constitutional: denies: chills, diaphoresis, fatigue, fever, malaise, sweats, weakness, others EENTM: denies: blurred vision, double vision, ear bleeding, ear discharge, ear drainage, ear pain, ear ringing, eye pain, eye redness, hearing loss, mouth pain, mouth swelling, nasal discharge, nose bleeding, nose congestion, nose pain, photophobia, tearing, throat pain, throat swelling, voice changes, others Respiratory: reports: shortness of breath; denies: cough, hemoptysis, orthopnea, SOB at rest, SOB with excertion, stridor, wheezing, others Cardiovascular: reports: chest pain; denies: dizzy spells, diaphoresis, Dyspnea on exertion, edema, irregular heart beat, left arm pain, lightheadedness, palpitations, PND, syncope, others Gastrointestinal: denies: abdomen distended, abdominal pain, blood streaked bowels, constipated, diarrhea, dysphagia, difficulty swallowing, hematemesis, melena, nausea, poor appetite, poor fluid intake, rectal bleeding, rectal pain, vomiting, others Genitourinary: denies: burning, dysuria, flank pain, frequency, hematuria, incontinence, penile discharge, penile sore, pain, testicle pain, testicle swel ling, urgency, others Neurological: denies: dizziness, fainting, headache, left sided numbness, left sided weakness, numbness, paresthesia, pre-existing deficit, right sided numbness, right sided weakness, seizure, speech problems, tingling, tremors, weakness, others Musculoskeletal: denies: back pain, gout, joint pain, joint swelling, muscle pain, muscle stiffness, neck pain, others Integumetry: denies: bruises, change in color, change in hair/nails, dryness, laceration, lesions, lumps, rash, wounds, others Allergic/Immunocompromised: denies: Difficulty Healing, Frequent Infections, Hives, Itching, others Hematologic/Lymphatic: denies: anemia, blood clots, easy bleeding, easy bruising, swollen glands, others Endocrine: denies: excessive hunger, excessive sweating, excessive thirst, excessive urination, flushing, intolerance to cold, intolerance to heat, unexplained weight gain, unexplained weight loss, others Psychiatric: denies: anxiety, bipolar disorder, depression, hopeless, panic disorder, schizophrenia, sleepless, suicidal, others Physical Exam General Appearance: Moderate Distress HEENT: Normal ENT Inspection, Pharynx Normal, TMs Normal Neck: Full Range of Motion, Non-Tender, Normal, Normal Inspection Respiratory: Chest Non-Tender, Lungs Clear, No Accessory Muscle Use, No Respiratory Distress, Normal Breath Sounds Cardiovascular: No Edema, No JVD, No Murmur, No Gallop, Normal Peripheral Pulses, Regular Rate/Rhythm Breast Exam: Deferred Gastrointestinal: No Organomegaly, Non Tender, No Pulsatile Mass, Normal Bowel Sounds, Soft Genitalia: Deferred Pelvic: Deferred Rectal: Deferred Extremities: No calf tenderness, Normal capillary refill, Normal inspection, Normal range of motion, Non-tender, No pedal edema Musculoskeletal : Apperance: Normal Neurologic: Alert, testing consultant II-XII nml as Tested, No Motor Deficits, Normal Affect, Normal Mood, No Sensory Deficits Cerebellar Function: NOT DONE Reflexes: NOT DONE Skin: Dry, Normal Color, Warm Peripheral Pulses: 3+ Radial (R), 3+ Radial (L) Lymphatic: No Adenopathy Was a procedure done? Was a procedure done?: No EKG EKG : Pulse Rate (adult): 82 Cardiac Rhythm: NSR Differential Dx Considerations may include: Anemia Electrolyte imbalance X-Ray, Labs, Meds, VS Vital Signs Date Time Temp Pulse Resp B/P (MAP) Pulse Ox O2 Delivery O2 Flow Rate FiO2 12/24/24 12:32 98.7 90 16 134/92 98 98.7 12/24/24 12:23 82 Lab Test 12/24/24 12:56 Range/Units White Blood Count 9.7 4.4-10.8 10^3/uL Red Blood Count 4.79 4.5-5.90 10^6/uL Hemoglobin 16.9 13.5-17.5 g/dL Hematocrit 46.7 41.0-53.0 % Mean Corpuscular Volume 97.6 80.0-100.0 fL Mean Corpuscular Hemoglobin 35.3 H 28.0-32.0 pg Mean Corpuscular Hemoglobin Concent 36.2 H 32.0-36.0 g/dL Red Cell Distribution Width 13.9 11.8-14.3 % Platelet Count 386 140-450 10^3/uL Mean Platelet Volume 7.6 6.9-10.8 fL Neutrophils (%) (Auto) 69.5 37.0-80.0 % Lymphocytes (%) (Auto) 20.0 10.0-50.0 % Monocytes (%) (Auto) 7.9 0.0-12.0 % Eosinophils (%) (Auto) 1.3 0.0-7.0 % Basophils (%) (Auto) 1.3 0.0-2.0 % Neutrophils # (Auto) 6.7 1.6-8.6 10 ^3/uL Lymphocytes # (Auto) 1.9 0.4-5.4 10 ^3/uL Monocytes # (Auto) 0.8 0-1.3 10 ^3/uL Eosinophils # (Auto) 0.1 0-0.8 10 ^3/uL Basophils # (Auto) 0.1 0-0.2 10 ^3/uL Nucleated Red Blood Cells 0.1 % Sodium Level 140 136-145 mmol/L Potassium Level 4.1 3.5-5.1 mmol/L Chloride Level 106 98-107 mmol/L Carbon Dioxide Level 23 20-31 mmol/L Anion Gap 11 5-15 Blood Urea Nitrogen 13 9-23 mg/dL Creatinine 1.29 0.700-1.30 mg/dL Glomerular Filtration Rate Calc 65 >90 mL/min BUN/Creatinine Ratio 10.1 10.0-20.0 Serum Glucose 141 H 74-106 mg/dL Calcium Level 12.3 H 8.7-10.4 mg/dL Troponin I High Sensitivity 3 L </=54 ng/L Patient alert. Complaining of chest pain. Is anxious. Vitals stable. Answering questions. Blood sugar elevated. Was given aspirin. Was given Ativan. Cardiac marker within normal limits pain EKG reviewed does not show any acute changes. Possibly will need placement. Echocardiogram. Cardiology consultation. Explained to the patient. Continue to monitor. Time of 1ST Reevaluation: 16:12 Reevaluation 1ST: Unchanged Patient Education/Counseling: Diagnosis, Treatment, Prognosis, Need For Follow Up Family Education/Counseling: No Family Present SEPSIS Sepsis Screen Date sepsis recognized/suspect: Dec 24, 2024 Time Sepsis recognized/suspect: 1225 Recent Procedure: No On Antibiotic Therapy: No Respiratory Rate >20: No Heart Rate >90: No Temp<36 C (96.8 F) or >38.3 C: No SBP <90 or MAP <65 mmHG: No New Acute Mental Status Change: No Is the patient on CPAP, BIPAP,: No Vital Signs Date Time Temp Pulse Resp B/P (MAP) Pulse Ox O2 Delivery O2 Flow Rate FiO2 12/24/24 12:32 98.7 90 16 134/92 98 98.7 12/24/24 12:23 82 Laboratory Tests Test 12/24/24 12:56 White Blood Count 9.7 10^3/uL (4.4-10.8) Departure 1 Departure Time of Disposition: 16:14 Impression: Primary Impression: Chest pain of unknown etiology Additional Impression: COPD exacerbation Disposition: ADMITTED INPATIENT Admit to: Med Surg Condition: Guarded Critical Care Note Critical Care Time?: No Stability Stability form required: No Heart Score Heart Score: Heart Score Response (Comments) Value History Slightly Suspicious 0 EKG Normal 0 Age 45-64 1 Risk Factors >3 or Hx ASHD 2 Troponin Normal limit 0 Total 3 MAIRA PETERSON MD Dec 24, 2024 16:14
[2024-12-24] MEDS: LORazepam 0.5 MG TAB PO ONE (16:17)
[2024-12-24] MEDS: ALPRAZolam 0.5 MG TAB PO ONE (21:55)
[2024-12-25] MEDS ORDERED: DULO1CAP6 PO (06:50)
[2024-12-25] MEDS ORDERED: GABA-339 PO (06:50)
[2024-12-25] MEDS ORDERED: LOS25T PO (06:50)
[2024-12-25] MEDS ORDERED: ATOR40TA52 PO (06:50)
[2024-12-25] MEDS ORDERED: QUET300T24 PO (06:50)
[2024-12-25] MEDS ORDERED: BUSP5TAB51 PO (06:50)
[2024-12-25] MEDS ORDERED: FENO160T PO (06:50)
[2024-12-25] MEDS ORDERED: ACETAMINOPHEN 325 MG TAB PO PRN (07:45)
[2024-12-25] MEDS ORDERED: DOCUSATE SOD 100 MG CAP PO PRN (07:45)
[2024-12-25] MEDS ORDERED: ONDANSETRON HCL 4 MG/2 ML VIAL IV PRN (07:45)
[2024-12-25] MEDS ORDERED: DEXTROSE (50%) 50ML SYRG IV PRN (07:45)
--- NOTE | 2024-12-25 07:48 | DVHHP2 ---
History of Present Illness Reason for Visit: Anxiety History of Present Illness Huang Velez is a 54-year-old male with past medical history of hypertension, hyperlipidemia, diabetes, anxiety, and depression, who came to the hospital due to severe anxiety. Patient states he suffers with severe anxiety and depression, and yesterday it was worsening that he decided to come to the hospital. Cardiovascular: HTN, hyperipidemia Psych: Anxiety, Depression Endocrine: Diabetes Smoke: 1 pack per day ALCOHOL: none Drugs: None Lives: Friends Domestic Violence: Neg Review of Systems Constitutional: Yes: Other (Severe anxiety adn depression); No: Fever, Chills, Sweats, Weakness, Malaise Eyes: No: Pain, Vision change, Conjunctivae inflammation, Eyelid inflammation, Other, Redness ENT: No: Ear pain, Ear discharge, Nose pain, Nose discharge, Nose congestion, Mouth pain, Mouth swelling, Throat pain, Throat swelling, Other Respiratory: No: Cough, Dry, Shortness of breath, SOB with excertion, Wheezing, Hemoptysis, Pleuritic Pain, Sputum, Wheezing, Other Cardiovascular: No: Chest Pain, Palpitations, Orthopnea, Paroxysmal Noc. Dyspnea, Edema, Lt Headedness, Other Gastrointestinal: No: Nausea, Vomiting, Abdominal Pain, Diarrhea, Constipation, Melena, Hematochezia, Other Genitourinary: No Dysuria, No Frequency, No Incontinence, No Hematuria, No Retention, No Other Musculoskeletal: No: other, neck pain, shoulder pain, arm pain, back pain, hand pain, leg pain, foot pain Skin: No: Rash, Lesions, Jaundice, Bruising, Other Neurological: No: Weakness, Numbness, Incoordination, Change in speech, Confusion, Seizures, Other Allergies: Coded Allergies: Thioridazine (Verified Allergy, Unknown, 04/17/24) Exam Vital Signs Vital Signs Date Time Temp Pulse Resp B/P (MAP) Pulse Ox O2 Delivery O2 Flow Rate FiO2 12/25/24 04:03 62 20 93/65 (74) 99 12/25/24 02:39 97.5 97.5 12/25/24 02:39 Room Air General Appearance: Alert, Oriented X3, Cooperative, mild distress HEENT: Atraumatic, PERRLA Respiratory: Clear to auscultation, Normal air movement Cardiovascular: Regular rate, Normal S1, Normal S2, No murmurs Abdominal: Normal bowel sounds, Soft, No tenderness, No hepatospenomegaly Extremities: No clubbing, No cyanosis, No edema, Normal pulses Skin: No rashes, No breakdown, No significant lesion Neuro: Normal gait, Normal speech, Strength at 5/5 X4 ext Psych/Mental Status: Mental status NL, Mood NL Labs/Xrays Labs Test 12/24/24 12:56 Range/Units White Blood Count 9.7 4.4-10.8 10^3/uL Red Blood Count 4.79 4.5-5.90 10^6/uL Hemoglobin 16.9 13.5-17.5 g/dL Hematocrit 46.7 41.0-53.0 % Mean Corpuscular Volume 97.6 80.0-100.0 fL Mean Corpuscular Hemoglobin 35.3 H 28.0-32.0 pg Mean Corpuscular Hemoglobin Concent 36.2 H 32.0-36.0 g/dL Red Cell Distribution Width 13.9 11.8-14.3 % Platelet Count 386 140-450 10^3/uL Mean Platelet Volume 7.6 6.9-10.8 fL Neutrophils (%) (Auto) 69.5 37.0-80.0 % Lymphocytes (%) (Auto) 20.0 10.0-50.0 % Monocytes (%) (Auto) 7.9 0.0-12.0 % Eosinophils (%) (Auto) 1.3 0.0-7.0 % Basophils (%) (Auto) 1.3 0.0-2.0 % Neutrophils # (Auto) 6.7 1.6-8.6 10 ^3/uL Lymphocytes # (Auto) 1.9 0.4-5.4 10 ^3/uL Monocytes # (Auto) 0.8 0-1.3 10 ^3/uL Eosinophils # (Auto) 0.1 0-0.8 10 ^3/uL Basophils # (Auto) 0.1 0-0.2 10 ^3/uL Nucleated Red Blood Cells 0.1 % Sodium Level 140 136-145 mmol/L Potassium Level 4.1 3.5-5.1 mmol/L Chloride Level 106 98-107 mmol/L Carbon Dioxide Level 23 20-31 mmol/L Anion Gap 11 5-15 Blood Urea Nitrogen 13 9-23 mg/dL Creatinine 1.29 0.700-1.30 mg/dL Glomerular Filtration Rate Calc 65 >90 mL/min BUN/Creatinine Ratio 10.1 10.0-20.0 Serum Glucose 141 H 74-106 mg/dL Calcium Level 12.3 H 8.7-10.4 mg/dL Troponin I High Sensitivity 3 L </=54 ng/L SEPSIS Sepsis Screen Date sepsis recognized/suspect: Dec 25, 2024 Time Sepsis recognized/suspect: 350 Recent Procedure: No On Antibiotic Therapy: No Respiratory Rate >20: No Heart Rate >90: No Temp<36 C (96.8 F) or >38.3 C: No SBP <90 or MAP <65 mmHG: No New Acute Mental Status Change: No Is the patient on CPAP, BIPAP,: No Physician Orders Admit (12/25/24 07:40) Code Status (12/25/24 07:40) 2 Gm Sodium Diet (12/25/24 Breakfast) Sodium Chloride Lock (Saline Lock Ns) (12/25/24 14:00) Hydrocodone-Acet 5/325mg Tab ([place] 532 (12/25/24 07:45) Ondansetron Hcl (Zofran) (12/25/24 07:45) Docusate Sodium Capsule (Colace Capsule) (12/25/24 07:45) Complete Blood Count (12/26/24 04:00) Comprehensive Metabolic Panel (12/26/24 04:00) Condition: Serious (12/25/24 07:40) Acetaminophen Tablet (Tylenol Tablet) (12/25/24 07:45) Vital Signs Date Time Temp Pulse Resp B/P (MAP) Pulse Ox O2 Delivery O2 Flow Rate FiO2 12/25/24 04:03 62 20 93/65 (74) 99 12/25/24 02:39 97.5 70 19 103/70 (81) 96 97.5 12/25/24 02:39 70 19 96 Room Air Medications Medications Dose Ordered Sig/Iftikhar Route Start Time Stop Time Status Last Admin Dose Admin Alprazolam 1 mg ONCE ONCE PO 12/24/24 21:45 12/24/24 21:46 DC 12/24/24 21:55 1 MG Assessment/Plan Assessment/Plan Assessment: Major depression, Severe anxiety, Hyperglycemia, Hypertension, Hyperlipidemia, Plan: Admit to Med-Surg, Tele psych consult, Accu checks Q AC&HS with sliding scale, Home medications reconciled, Plan discussed with: Patient My Orders Orders - JUANA POE Procedure Category Date Status Time Admit ADMIT 12/25/24 Verified 07:40 Code Status CODE 12/25/24 Verified 07:40 2 Gm Sodium Diet DIET 12/25/24 Verified Breakfast Sodium Chloride Lock PHA 12/25/24 Verified (Saline Lock Ns) 14:00 Hydrocodone-Acet PHA 12/25/24 Verified 5/325mg Tab ([place] 07:45 Ondansetron Hcl PHA 12/25/24 Verified (Zofran) 07:45 Docusate Sodium PHA 12/25/24 Verified Capsule (Colace 07:45 Complete Blood Count LAB 12/26/24 Verified 04:00 Comprehensive LAB 12/26/24 Verified Metabolic Panel 04:00 Condition: Serious LIDA 12/25/24 Verified 07:40 Acetaminophen Tablet PHA 12/25/24 Verified (Tylenol Tablet) 07:45 Date of Service: Dec 25, 2024 Billing Provider: JUANA POE Common Visit Codes: [id number] INP/OBS CARE (MOD) JUANA POE Dec 25, 2024 07:48
[2024-12-25] MEDS: InsuLIN REG 1unit/0.01ml Soln (100units/ml) SC SCH (08:00)
[2024-12-25 08:04] VITALS: PULSE 66; RESP 19; O2SAT 93
[2024-12-25] MEDS: ACCU-CHEK COMFORT CURVE STRIP VI SCH (08:12)
[2024-12-25] MEDS: ASPirin-EC 81 mg tab PO SCH (10:00)
[2024-12-25] MEDS: LOSARTAN POTASSIUM 25 MG TAB PO SCH (10:00)
[2024-12-25] MEDS ORDERED: PATIENTS OWN MEDICATION (Duloxetine HCl 1 CAP) PO SCH (10:00)
[2024-12-25] MEDS: Fenofibrate 160 MG PO SCH (10:00)
[2024-12-25] MEDS ORDERED: PATIENTS OWN MEDICATION (Buspirone Hcl 1 TAB) PO SCH (10:00)
[2024-12-25] MEDS: GABAPENTIN 300 MG CAP PO SCH (14:00)
[2024-12-25] MEDS: SODIUM CHLOR 0.9% PF (SALINE LOCK) 10ML VIAL/SYR IV SCH (14:00)
[2024-12-25] MEDS ORDERED: PATIENTS OWN MEDICATION (Gabapentin 1 TAB) PO SCH (14:00)
--- NOTE | 2024-12-25 14:01 | DVHPN2 ---
Subjective He is admitted this morning for anxiety symptoms. Pending tele psych evaluation. Otherwise no complaints. Changes from previous H/P or p: No Changes Objective Vitals Vital Signs Date Time Temp Pulse Resp B/P (MAP) Pulse Ox O2 Delivery O2 Flow Rate FiO2 12/25/24 12:30 65 17 93 12/25/24 08:04 Room Air* 0 21 12/25/24 08:04 94/63 (73) 12/25/24 02:39 97.5 97.5 Exam Alert awake oriented to place and person. HEENT neck supple no JVD. Heart regular rate and rhythm S1-S2. Lungs fair air movement without rales wheezes. Abdomen soft nontender positive bowel sounds. Extremities no edema positive pulses. Neurologically no focal deficits. Medications Current Medications Medications Dose Ordered Sig/Iftikhar Route Start Time Stop Time Status Last Admin Dose Admin Sodium Chloride 10 ml Q8HR IV 12/25/24 14:00 Acetaminophen/ Hydrocodone Bitart 1 tab Q4HP PRN PO 12/25/24 07:45 Ondansetron HCl 4 mg Q4HP PRN IV 12/25/24 07:45 Docusate Sodium 100 mg BIDPRN PRN PO 12/25/24 07:45 Acetaminophen 650 mg Q6HP PRN PO 12/25/24 07:45 Diagnostic Test (Pha) 1 strip IQ4HR 12/25/24 08:00 12/25/24 08:12 1 STRIP Insulin Human Regular IQ4HR SC 12/25/24 08:00 Dextrose 50 ml UD PRN IV 12/25/24 07:45 Aspirin 81 mg DAILY PO 12/25/24 10:00 Losartan Potassium 25 mg DAILY PO 12/25/24 10:00 Tamsulosin HCl 0.4 mg QPM PO 12/25/24 18:00 Patient Own Medication 1 tab HS PO 12/25/24 22:00 UNV Patient Own Medication 1 tab BID PO 12/25/24 10:00 UNV Patient Own Medication 1 cap DAILY PO 12/25/24 10:00 UNV Patient Own Medication 1 tab DAILY PO 12/25/24 10:00 Patient Own Medication 1 tab TID PO 12/25/24 14:00 UNV Patient Own Medication 1 tab HS PO 12/25/24 22:00 UNV Alprazolam 0.5 mg Q8HPRN PRN PO 12/25/24 08:00 Atorvastatin Calcium 40 mg HS PO 12/25/24 22:00 Buspirone HCl 5 mg BID PO 12/25/24 10:00 Duloxetine HCl 60 mg DAILY PO 12/25/24 10:00 Gabapentin 600 mg TID PO 12/25/24 14:00 Quetiapine Fumarate 300 mg HS PO 12/25/24 22:00 Laboratory Results Laboratory Tests 12/24/24 12:56 Assessment/Plan Assessment/Plan Patient is started on anti anxiolytic medications as well as antidepressant. Pending tele psych evaluation. Continue present management as he is on and further clinical management per recommendations from the psychiatrist. Plan discussed with: Other Problem List: (1) Depressive episode (2) Adjustment disorder (3) Major depression Date of Service: Dec 25, 2024 Billing Provider: LEXX KRUEGER MD Common Visit Codes: [id number] INP/OBS CARE(MOD) LEXX KRUEGER MD Dec 25, 2024 14:01
[2024-12-25] MEDS: TAMSULOSIN HYDROCHLORIDE 0.4 MG CAP PO SCH (18:00)
[2024-12-25] MEDS: ATORVASTATIN 20 MG TAB PO SCH (21:04)
[2024-12-25] MEDS: ALPRAZolam 0.5 MG TAB PO PRN (21:04)
[2024-12-25] MEDS ORDERED: PATIENTS OWN MEDICATION (Atorvastatin Calcium 1 TAB) PO SCH (22:00)
[2024-12-25] MEDS ORDERED: PATIENTS OWN MEDICATION (Quetiapine Fumerate (Quetiapine Fumarate) 1 TAB) PO SCH (22:00)
[2024-12-25 23:23] VITALS: PULSE 74
[2024-12-26 07:30] VITALS: PULSE 74; RESP 17; O2SAT 93
[2024-12-26 13:00] VITALS: BP 104/62; PULSE 72; RESP 18; TEMP 98.1; O2SAT 98
--- NOTE | 2024-12-26 14:50 | DVHPN2 ---
Subjective STILL FEELS ANXIOUS. APPARENTLY REFUSED HIS MORNING MEDICATIONS PER NURSE. Pending tele psych evaluation. Changes from previous H/P or p: No Changes Objective Vitals Vital Signs Date Time Temp Pulse Resp B/P (MAP) Pulse Ox O2 Delivery O2 Flow Rate FiO2 12/26/24 07:30 74 17 93 Room Air* 0 21 12/25/24 08:04 94/63 (73) 12/25/24 02:39 97.5 97.5 Intake/Output Intake and Output 12/26/24 07:00 Intake Total 450 ml Balance 450 ml Intake Oral 450 ml Exam Alert awake oriented to place and person. HEENT neck supple no JVD. Heart regular rate and rhythm S1-S2. Lungs fair air movement without rales wheezes. Abdomen soft nontender positive bowel sounds. Extremities no edema positive pulses. Neurologically no focal deficits. Medications Current Medications Medications Dose Ordered Sig/Iftikhar Route Start Time Stop Time Status Last Admin Dose Admin Sodium Chloride 10 ml Q8HR IV 12/25/24 14:00 12/26/24 12:34 10 ML Acetaminophen/ Hydrocodone Bitart 1 tab Q4HP PRN PO 12/25/24 07:45 Ondansetron HCl 4 mg Q4HP PRN IV 12/25/24 07:45 Docusate Sodium 100 mg BIDPRN PRN PO 12/25/24 07:45 Acetaminophen 650 mg Q6HP PRN PO 12/25/24 07:45 Diagnostic Test (Pha) 1 strip IQ4HR 12/25/24 08:00 12/26/24 12:34 1 STRIP Insulin Human Regular IQ4HR SC 12/25/24 08:00 12/26/24 12:51 3 UNITS Dextrose 50 ml UD PRN IV 12/25/24 07:45 Aspirin 81 mg DAILY PO 12/25/24 10:00 12/26/24 11:21 81 MG Losartan Potassium 25 mg DAILY PO 12/25/24 10:00 Tamsulosin HCl 0.4 mg QPM PO 12/25/24 18:00 Patient Own Medication 1 tab HS PO 12/25/24 22:00 UNV Patient Own Medication 1 tab BID PO 12/25/24 10:00 UNV Patient Own Medication 1 cap DAILY PO 12/25/24 10:00 UNV Patient Own Medication 1 tab DAILY PO 12/25/24 10:00 Patient Own Medication 1 tab TID PO 12/25/24 14:00 UNV Patient Own Medication 1 tab HS PO 12/25/24 22:00 UNV Alprazolam 0.5 mg Q8HPRN PRN PO 12/25/24 08:00 12/25/24 21:04 0.5 MG Atorvastatin Calcium 40 mg HS PO 12/25/24 22:00 12/25/24 21:04 40 MG Buspirone HCl 5 mg BID PO 12/25/24 10:00 12/26/24 11:27 5 MG Duloxetine HCl 60 mg DAILY PO 12/25/24 10:00 12/26/24 11:20 60 MG Gabapentin 600 mg TID PO 12/25/24 14:00 12/26/24 12:55 600 MG Quetiapine Fumarate 300 mg HS PO 12/25/24 22:00 12/25/24 21:04 300 MG Laboratory Results Laboratory Tests 12/24/24 12:56 Assessment/Plan Assessment/Plan No suicidal or homicidal ideation or thoughts. Patient is started on anti anxiolytic medications as well as antidepressant. Pending tele psych evaluation. Continue present management as he is on and further clinical management per recommendations from the psychiatrist. Plan discussed with: Patient, Other My Orders Orders - LEXX KRUEGER MD Procedure Category Date Status Time Soc Telemed Psych CONS 12/26/24 Transmitted Consult 11:38 Problem List: (1) Major depression (2) Adjustment disorder Date of Service: Dec 26, 2024 Billing Provider: LEXX KRUEGER MD Common Visit Codes: [id number] INP/OBS CARE(MOD) LEXX KRUEGER MD Dec 26, 2024 14:50
[2024-12-26 17:00] VITALS: BP 101/71; PULSE 67; RESP 18; TEMP 97.5; O2SAT 97
--- NOTE | 2024-12-26 17:24 | DVHINCON2 ---
Date of Service if different f: Dec 26, 2024 Time of Service: 16:43 Consultation ([facility]) Labs Laboratory Tests Test 12/24/24 12:56 12/26/24 12:45 White Blood Count 9.7 10^3/uL (4.4-10.8) Red Blood Count 4.79 10^6/uL (4.5-5.90) Hemoglobin 16.9 g/dL (13.5-17.5) Hematocrit 46.7 % (41.0-53.0) Mean Corpuscular Volume 97.6 fL (80.0-100.0) Mean Corpuscular Hemoglobin 35.3 pg (28.0-32.0) Mean Corpuscular Hemoglobin Concent 36.2 g/dL (32.0-36.0) Red Cell Distribution Width 13.9 % (11.8-14.3) Platelet Count 386 10^3/uL (140-450) Mean Platelet Volume 7.6 fL (6.9-10.8) Neutrophils (%) (Auto) 69.5 % (37.0-80.0) Lymphocytes (%) (Auto) 20.0 % (10.0-50.0) Monocytes (%) (Auto) 7.9 % (0.0-12.0) Eosinophils (%) (Auto) 1.3 % (0.0-7.0) Basophils (%) (Auto) 1.3 % (0.0-2.0) Neutrophils # (Auto) 6.7 10 ^3/uL (1.6-8.6) Lymphocytes # (Auto) 1.9 10 ^3/uL (0.4-5.4) Monocytes # (Auto) 0.8 10 ^3/uL (0-1.3) Eosinophils # (Auto) 0.1 10 ^3/uL (0-0.8) Basophils # (Auto) 0.1 10 ^3/uL (0-0.2) Nucleated Red Blood Cells 0.1 % Sodium Level 140 mmol/L (136-145) Potassium Level 4.1 mmol/L (3.5-5.1) Chloride Level 106 mmol/L (98-107) Carbon Dioxide Level 23 mmol/L (20-31) Anion Gap 11 (5-15) Blood Urea Nitrogen 13 mg/dL (9-23) Creatinine 1.29 mg/dL (0.700-1.30) Glomerular Filtration Rate Calc 65 mL/min (>90) BUN/Creatinine Ratio 10.1 (10.0-20.0) Serum Glucose 141 mg/dL (74-106) Calcium Level 12.3 mg/dL (8.7-10.4) Troponin I High Sensitivity 3 ng/L (</=54) Bedside Glucose 172 mg/dl (70-106) Vitals Vital Signs Date Time Temp Pulse Resp B/P (MAP) Pulse Ox O2 Delivery O2 Flow Rate FiO2 12/26/24 13:00 98.1 72 18 104/62 (76) 98 98.1 12/26/24 07:30 Room Air* 0 21 Current medications Current Medications Medications Dose Ordered Sig/Iftikhar Route Start Time Stop Time Status Last Admin Dose Admin Sodium Chloride 10 ml Q8HR IV 12/25/24 14:00 12/26/24 12:34 10 ML Acetaminophen/ Hydrocodone Bitart 1 tab Q4HP PRN PO 12/25/24 07:45 Ondansetron HCl 4 mg Q4HP PRN IV 12/25/24 07:45 Docusate Sodium 100 mg BIDPRN PRN PO 12/25/24 07:45 Acetaminophen 650 mg Q6HP PRN PO 12/25/24 07:45 Diagnostic Test (Pha) 1 strip IQ4HR 12/25/24 08:00 12/26/24 12:34 1 STRIP Insulin Human Regular IQ4HR SC 12/25/24 08:00 12/26/24 12:51 3 UNITS Dextrose 50 ml UD PRN IV 12/25/24 07:45 Aspirin 81 mg DAILY PO 12/25/24 10:00 12/26/24 11:21 81 MG Losartan Potassium 25 mg DAILY PO 12/25/24 10:00 Tamsulosin HCl 0.4 mg QPM PO 12/25/24 18:00 Patient Own Medication 1 tab HS PO 12/25/24 22:00 UNV Patient Own Medication 1 tab BID PO 12/25/24 10:00 UNV Patient Own Medication 1 cap DAILY PO 12/25/24 10:00 UNV Patient Own Medication 1 tab DAILY PO 12/25/24 10:00 Patient Own Medication 1 tab TID PO 12/25/24 14:00 UNV Patient Own Medication 1 tab HS PO 12/25/24 22:00 UNV Alprazolam 0.5 mg Q8HPRN PRN PO 12/25/24 08:00 12/25/24 21:04 0.5 MG Atorvastatin Calcium 40 mg HS PO 12/25/24 22:00 12/25/24 21:04 40 MG Buspirone HCl 5 mg BID PO 12/25/24 10:00 12/26/24 11:27 5 MG Duloxetine HCl 60 mg DAILY PO 12/25/24 10:00 12/26/24 11:20 60 MG Gabapentin 600 mg TID PO 12/25/24 14:00 12/26/24 12:55 600 MG Quetiapine Fumarate 300 mg HS PO 12/25/24 22:00 12/25/24 21:04 300 MG PSYCHIATRY CONSULTATION INITIAL EVALUATION REASON FOR CONSULT: Per RN, pt came in last night with major depression. No additional rationale provided. HPI: On interview, pt asleep but wakes for interview. Pt able to provide his name, location, the month and year, and presented after having 2 anxiety attacks. Pt denies having episodes like this in the past. He reports 2 episodes yesterday morning. Pt thinks it was a panic attack. Pt says he says he was at a psychiatric facility in [place] for a week, was prescribed Alprazolam while there, but did not get any upon discharge. Pt had a panic attack today, last 5 mins, better with medication. However, RN at bedside said she has not witnessed any panic attacks. Pt also reports depression for a while. Pt denies any acute stressors, denies it has been worse recently. Pt sleeping at home. He reports diminished energy and concentration. Appetite is good. No guilt, no anhedonia. Denies SI. PSYCHIATRIC HISTORY: DIAGNOSIS: Reports history of anxiety, cannot specify further. Also reports depression, and bipolar disorder. ADMISSIONS: Reports multiple prior admissions including a few days ago. He says he was at a psychiatric facility in [place] for a week, was prescribed Alprazolam while there, but did not get any upon discharge. MEDICATION TRIALS: Pt is Seroquel at home, started in the psychiatric fink. Also on Hydroxyzine, takes it once a day. OUTPATIENT CARE: No current OP care. THERAPY: No current therapy. SI/SELF-INJURY/SUICIDE ATTEMPT: History of SI, no prior SIB or SA. No access to firearms. SUBSTANCE USE: Denies use of drugs or alcohol. RELEVANT MEDICAL HISTORY: Kidney stones Enlarged prostate Gout Plantar fasciitis Heel spurs SOCIAL HISTORY: Lives with people. ALLERGIES: Denies MENTAL STATUS EXAMINATION: The patient appeared drowsy throughout the interview, returning to sleep on a few occasions but was able to be aroused for questioning. Upon waking, he was alert and oriented to person, place, and time. Speech was slow but coherent, with normal volume and tone. Mood was described as depressed, though affect was congruent and within normal range. Thought processes were linear and goal- directed. No evidence of psychosis or disorganization was noted. He denied suicidal or homicidal ideation. Insight and judgment appeared fair. There were no perceptual disturbances. Overall, aside from transient somnolence, mental status was unremarkable. DIFFERENTIAL DIAGNOSIS: Major Depressive Disorder, Recurrent, Mild to Moderate Unspecified Anxiety Disorder Rule Out Panic Disorder Bipolar Disorder unspecified ASSESSMENT: The patient presents following two reported panic episodes, with a background of chronic depressive symptoms and previously diagnosed anxiety. He has a history of psychiatric hospitalizations, including one reportedly within the past week. He reports being prescribed alprazolam during a recent inpatient stay, though none was continued on discharge. He is currently taking Seroquel and hydroxyzin e. His presentation today does not raise acute safety concerns. He denies current suicidal ideation, homicidal ideation, or perceptual disturbances. He is alert, oriented, and able to engage in basic conversation despite periods of sleepiness. There is no evidence to suggest grave disability, danger to self or others, or the need for inpatient psychiatric admission. No panic symptoms were observed by staff during this admission. RECOMMENDATIONS: 1. Legal: 5150 criteria not met at this time. No evidence of danger to self, others, or grave disability. 2. Disposition: Patient is psychiatrically stable for continued care on the medical floor. No inpatient psychiatry transfer indicated. 3. Medications: Agree with the current regimen of Seroquel, Cymbalta, Gabapentin (if no side effects). Little additional utility with Buspirone, can continue or d/c med. If not planning to discharge pt with any benzos, consider changing from Xanax PRN to hydroxyzine 50 mg PRN so he can discharge on the same regimen. If discharging with any benzos, perform CURES review first. 4. Medical Considerations: Rule out possible medical contributions, such as th yroid disorder, UTI. 5. Other: Recommend social work evaluation for outpatient psychiatric follow-up and community mental health linkage upon discharge. Psychoeducation on panic attacks and anxiety management may also be beneficial. CURT VARGAS MD Dec 26, 2024 17:24
[2024-12-26 20:00] VITALS: PULSE 59; RESP 20; O2SAT 97
[2024-12-26 21:00] VITALS: BP 118/80; PULSE 59; RESP 20; TEMP 97.8; O2SAT 97
[2024-12-26] MEDS: HYDROcodone-ACET 5/325MG TAB PO PRN (21:30)
[2024-12-27] VITALS (8 sets, daily range): BP systolic 95–121; BP diastolic 62–82; PULSE 51–80; RESP 15–20; TEMP 97.2–98.4; O2SAT 92–98
[2024-12-27] MEDS ORDERED: hydrOXYzine 25 MG TAB or CAP PO PRN (12:30)
--- NOTE | 2024-12-27 15:52 | DVHPN2 ---
Subjective Says he is still feels anxious. Evaluated by tele psych and recommended medications. Hydroxyzine has been started. We will arrange for outpatient psych follow up and safety evaluation at home and remains stable discharge home in the morning. Discussed with the patient. Changes from previous H/P or p: No Changes Objective Vitals Vital Signs Date Time Temp Pulse Resp B/P (MAP) Pulse Ox O2 Delivery O2 Flow Rate FiO2 12/27/24 13:00 97.2 56 15 98/62 (74) 95 97.2 12/27/24 08:18 Room Air* 0 21 Intake/Output Intake and Output 12/27/24 07:00 Intake Total 1600 ml Balance 1600 ml Intake Oral 1600 ml # Voids 3 # Bowel Movements 1 Exam Alert awake oriented to place and person. HEENT neck supple no JVD. Heart regular rate and rhythm S1-S2. Lungs fair air movement without rales wheezes. Abdomen soft nontender positive bowel sounds. Extremities no edema positive pulses. Neurologically no focal deficits. Medications Current Medications Medications Dose Ordered Sig/Iftikhar Route Start Time Stop Time Status Last Admin Dose Admin Sodium Chloride 10 ml Q8HR IV 12/25/24 14:00 12/27/24 12:47 10 ML Acetaminophen/ Hydrocodone Bitart 1 tab Q4HP PRN PO 12/25/24 07:45 12/26/24 21:30 1 TAB Ondansetron HCl 4 mg Q4HP PRN IV 12/25/24 07:45 Docusate Sodium 100 mg BIDPRN PRN PO 12/25/24 07:45 Acetaminophen 650 mg Q6HP PRN PO 12/25/24 07:45 Diagnostic Test (Pha) 1 strip IQ4HR 12/25/24 08:00 12/27/24 11:52 1 STRIP Insulin Human Regular IQ4HR SC 12/25/24 08:00 12/27/24 08:13 2 UNITS Dextrose 50 ml UD PRN IV 12/25/24 07:45 Aspirin 81 mg DAILY PO 12/25/24 10:00 12/27/24 10:07 81 MG Losartan Potassium 25 mg DAILY PO 12/25/24 10:00 12/27/24 10:08 25 MG Tamsulosin HCl 0.4 mg QPM PO 12/25/24 18:00 Patient Own Medication 1 tab HS PO 12/25/24 22:00 UNV Patient Own Medication 1 tab BID PO 12/25/24 10:00 UNV Patient Own Medication 1 cap DAILY PO 12/25/24 10:00 UNV Patient Own Medication 1 tab DAILY PO 12/25/24 10:00 Patient Own Medication 1 tab TID PO 12/25/24 14:00 UNV Patient Own Medication 1 tab HS PO 12/25/24 22:00 UNV Atorvastatin Calcium 40 mg HS PO 12/25/24 22:00 12/26/24 21:14 40 MG Duloxetine HCl 60 mg DAILY PO 12/25/24 10:00 12/27/24 10:07 60 MG Gabapentin 600 mg TID PO 12/25/24 14:00 12/26/24 12:55 600 MG Quetiapine Fumarate 300 mg HS PO 12/25/24 22:00 12/26/24 21:14 300 MG Hydroxyzine Pamoate 50 mg Q8HPRN PRN PO 12/27/24 12:30 Laboratory Results Laboratory Tests 12/24/24 12:56 Assessment/Plan Assessment/Plan Continue hydroxyzine and other psych medications per psychiatrist recommendations. Home safety evaluation is being arranged with the social Service. Once this is done he can be discharged home in the morning. Plan discussed with: Patient, Other My Orders Orders - LEXX KRUEGER MD Procedure Category Date Status Time Hydroxyzine Oral PHA 12/27/24 In Process (Vistaril Oral) 12:30 * Accounting Tutor CONS 12/27/24 Transmitted Consult 15:48 Problem List: (1) Adjustment disorder (2) Major depression Date of Service: Dec 27, 2024 Billing Provider: LEXX KRUEGER MD Common Visit Codes: [id number] INP/OBS CARE(LOW) LEXX KRUEGER MD Dec 27, 2024 15:51
[2024-12-27] MEDS: hydrOXYzine 25 MG TAB or CAP PO SCH (22:00)
[2024-12-28 01:00] VITALS: BP 83/52; PULSE 69; RESP 17; TEMP 96.2; O2SAT 98
[2024-12-28 05:00] VITALS: BP 83/54; PULSE 80; RESP 19; TEMP 97.1; O2SAT 95
[2024-12-28 07:32] VITALS: RESP 16
[2024-12-28 09:06] VITALS: BP 94/63; PULSE 48; RESP 20; TEMP 97.9; O2SAT 96
[2024-12-28] MEDS ORDERED: HYDR-5028 PO (09:12)
[2024-12-28 09:41] VITALS: BP 136/78
[2024-12-28 13:00] VITALS: BP 96/56; PULSE 53; RESP 20; TEMP 97.7; O2SAT 97
== END 2024-12-28 14:20 | disposition home health service (06) | DRG 880 ==
LOC: EDUNIT# 12:15 → ER 12:15 → EDBD 12:15 → OVERFLOW 12-25 07:40 → WEST WING 12-25 23:05
PROVIDERS: ADMIT Hospitalist; ATTEND Hospitalist
DX: F41.0 Panic disorder [episodic paroxysmal anxiety] (principal); F32.9 Major depressive disorder, single episode, unspecified; E11.65 Type 2 diabetes mellitus with hyperglycemia; I10 Essential (primary) hypertension; F43.20 Adjustment disorder, unspecified; E78.5 Hyperlipidemia, unspecified; N40.0 Benign prostatic hyperplasia without lower urinary tract symptoms; M72.2 Plantar fascial fibromatosis; M10.9 Gout, unspecified; Z87.442 Personal history of urinary calculi; F17.210 Nicotine dependence, cigarettes, uncomplicated; Z88.8 Allergy status to other drugs, medicaments and biological substances
CPT/HCPCS: 36415; 80048; 82962; 84484; 85025; 93005; G0378; J1815

== ENCOUNTER 2025-01-07 22:06 | Emergency (ER) | payer OTHER, MEDICAID ==
[~2025-01-07] VITALS: Ht 177.8 cm; Wt 113.4 kg
[~2025-01-07 22:06] MED LIST changes: -ATOR20TA50 PO; +ATOR40TA52 PO; -BUSP10TA90 PO; +DULO1CAP6 PO; +FENO160T PO; -GABA-1250 PO; +GABA-339 PO; +HYDR-5028 PO; -IBUP-1455 PO; -LACT10SO3 PO; +LOS25T PO; -MIRT1TAB PO; -NAP500T PO; -OLAN1TAB7 PO; +QUET300T24 PO; -VENL37.572 PO
--- NOTE | 2025-01-07 22:20 | ED.PDOC ---
History of Present Illness HPI Comments 54 y.o male with PMHx of gout, depression and anxiety, presents to the ED via EMS for a chief complaint of body pain. Patient reports a developing a gout flare up that first presented to lower extremity and throughout the day radiating up to his upper extremities. He described the pain as a burning sensation, states he took his pain medication at home but had no relief so he called 911. Patient denies any nausea, vomiting, diarrhea, fever, chills, recent falls, or injuries. Chief Complaint: Body Pain Time Seen by MD: 22:11 Primary Care Provider: " I DON'T HAVE ONE" Reviewed Notes: Nurses Notes, Network Controller Notes, Medications, Allergies Allergies: Coded Allergies: Thioridazine (Verified Allergy, Unknown, 04/17/24) Home Meds Active Scripts Hydroxyzine HCl (Hydroxyzine Hydrochloride) 10 Mg Tab, 10 MG PO TID, #30 TAB Prov:LEXX KRUEGER MD 12/28/24 Metformin Hydrochloride (Metformin Hcl) 500 Mg Tab, 1 TAB PO BID for 30 Days, #60 TAB 1 Refill Prov:MEDINA SCHWARTZ RESIDENT 04/24/24 Tamsulosin Hcl (Flomax) 0.4 Mg Cap, 0.4 MG PO QPM for 30 Days, #30 CAP 1 Refill Prov:MEDINA SCHWARTZ RESIDENT 04/24/24 Sertraline Hcl (Sertraline Hcl) 50 Mg Tab, 50 MG PO DAILY, #30 MG Prov:AME BOWENS MD 09/06/22 Reported Medications Gabapentin (Gabapentin) 600 Mg Tab, 1 TAB PO TID 12/25/24 Quetiapine Fumerate (QUETIAPINE FUMARATE) 300 Mg Tab, 1 TAB PO HS 12/25/24 Duloxetine HCl (Duloxetine HCl) 60 Mg Cap, 1 CAP PO DAILY 12/25/24 Fenofibrate (Fenofibrate) 160 Mg Tab, 1 TAB PO DAILY 12/25/24 Atorvastatin Calcium (ATORVASTATIN CALCIUM) 40 Mg Tab, 1 TAB PO HS 12/25/24 Losartan Potassium (Losartan Potassium) 25 Mg Tab, 1 TAB PO DAILY 12/25/24 Oxycodone W/ Acetaminophen (Oxycodone/Acetaminophen 10-300 mg) 1 Tab Tab 06/22/22 Aspirin (ASPIRIN 81) 81 Mg Tab, 81 MG OR DAILY, TAB 06/22/22 Trazodone Hcl (Trazodone Hcl) 50 Mg Tab, 50 MG PO DAILY, TAB 06/22/22 Information Source: Patient, Emergency Med Personnel Mode of Arrival: EMS Severity: Moderate Timing: Hours Duration: Since onset Past Medical History PAST MEDICAL HISTORY: Anxiety, Asthma, Depression, DM, Gout, HTN, Kidney Stones, Thyroid Surgical History: Denies all surgeries Family History Family History: Family hx of Cancer Social History Smoker: Cigarettes Alcohol: Denies ETOH Use Drugs: Denies Drug Use Lives In: Home Constitutional: denies: chills, diaphoresis, fatigue, fever, malaise, sweats, weakness, others EENTM: denies: blurred vision, double vision, ear bleeding, ear discharge, ear drainage, ear pain, ear ringing, eye pain, eye redness, hearing loss, mouth pain, mouth swelling, nasal discharge, nose bleeding, nose congestion, nose pain, photophobia, tearing, throat pain, throat swelling, voice changes, others Respiratory: denies: cough, hemoptysis, orthopnea, SOB at rest, shortness of breath, SOB with excertion, stridor, wheezing, others Cardiovascular: denies: chest pain, dizzy spells, diaphoresis, Dyspnea on exertion, edema, irregular heart beat, left arm pain, lightheadedness, palpitations, PND, syncope, others Gastrointestinal: denies: abdomen distended, abdominal pain, blood streaked bowels, constipated, diarrhea, dysphagia, difficulty swallowing, hematemesis, melena, nausea, poor appetite, poor fluid intake, rectal bleeding, rectal pain, vomiting, others Genitourinary: denies: burning, dysuria, flank pain, frequency, hematuria, incontinence, penile discharge, penile sore, pain, testicle pain, testicle swelling, urgency, others Neurological: denies: dizziness, fainting, headache, left sided numbness, left sided weakness, numbness, paresthesia, pre-existing deficit, right sided numbness, right sided weakness, seizure, speech problems, tingling, tremors, weakness, others Musculoskeletal: reports: gout; denies: back pain, joint pain, joint swelling, muscle pain, muscle stiffness, neck pain, others Integumetry: denies: bruises, change in color, change in hair/nails, dryness, laceration, lesions, lumps, rash, wounds, others Allergic/Immunocompromised: denies: Difficulty Healing, Frequent Infections, Hives, Itching, others Hematologic/Lymphatic: denies: anemia, blood clots, easy bleeding, easy bruising, swollen glands, others Endocrine: denies: excessive hunger, excessive sweating, excessive thirst, excessive urination, flushing, intolerance to cold, intolerance to heat, unexplained weight gain, unexplained weight loss, others Psychiatric: denies: anxiety, bipolar disorder, depression, hopeless, panic disorder, schizophrenia, sleepless, suicidal, others All Other Systems: Reviewed and Negative Physical Exam General Appearance: No Apparent Distress, Normal HEENT: Normal ENT Inspection, Pharynx Normal, TMs Normal Neck: Full Range of Motion, Non-Tender, Normal, Normal Inspection Respiratory: Chest Non-Tender, Lungs Clear, No Accessory Muscle Use, No Respiratory Distress, Normal Breath Sounds Cardiovascular: No Edema, No JVD, No Murmur, No Gallop, Normal Peripheral Pulses, Regular Rate/Rhythm Breast Exam: Deferred Gastrointestinal: No Organomegaly, Non Tender, No Pulsatile Mass, Normal Bowel Sounds, Soft Genitalia: Deferred Pelvic: Deferred Rectal: Deferred Extremities: No calf tenderness, Normal capillary refill, Normal inspection, Normal range of motion, Non-tender, No pedal edema Musculoskeletal : Apperance: Normal Neurologic: Alert, disk grinder II-XII nml as Tested, No Motor Deficits, Normal Affect, Normal Mood, No Sensory Deficits Cerebellar Function: Normal Reflexes: Normal Skin: Dry, Normal Color, Warm Lymphatic: No Adenopathy Was a procedure done? Was a procedure done?: No Differential Dx Considerations may include: Gout flare up, Pseudogout, Rheumatoid Arthritis, neuropathy X-Ray, Labs, Meds, VS Vital Signs Date Time Temp Pulse Resp B/P (MAP) Pulse Ox O2 Delivery O2 Flow Rate FiO2 01/07/25 22:13 98.8 75 18 141/99 98 98.8 Lab Test 01/07/25 23:01 Range/Units White Blood Count 11.5 H 4.4-10.8 10^3/uL Red Blood Count 5.13 4.5-5.90 10^6/uL Hemoglobin 17.7 H 13.5-17.5 g/dL Hematocrit 50.6 41.0-53.0 % Mean Corpuscular Volume 98.6 80.0-100.0 fL Mean Corpuscular Hemoglobin 34.5 H 28.0-32.0 pg Mean Corpuscular Hemoglobin Concent 35.0 32.0-36.0 g/dL Red Cell Distribution Width 14.5 H 11.8-14.3 % Platelet Count 411 140-450 10^3/uL Mean Platelet Volume 7.3 6.9-10.8 fL Neutrophils (%) (Auto) 68.9 37.0-80.0 % Lymphocytes (%) (Auto) 23.1 10.0-50.0 % Monocytes (%) (Auto) 6.3 0.0-12.0 % Eosinophils (%) (Auto) 1.0 0.0-7.0 % Basophils (%) (Auto) 0.7 0.0-2.0 % Neutrophils # (Auto) 7.9 1.6-8.6 10 ^3/uL Lymphocytes # (Auto) 2.7 0.4-5.4 10 ^3/uL Monocytes # (Auto) 0.7 0-1.3 10 ^3/uL Eosinophils # (Auto) 0.1 0-0.8 10 ^3/uL Basophils # (Auto) 0.1 0-0.2 10 ^3/uL Nucleated Red Blood Cells 0.2 % Sodium Level 141 136-145 mmol/L Potassium Level 3.8 3.5-5.1 mmol/L Chloride Level 108 H 98-107 mmol/L Carbon Dioxide Level 26 20-31 mmol/L Anion Gap 7 5-15 Blood Urea Nitrogen 13 9-23 mg/dL Creatinine 1.37 H 0.700-1.30 mg/dL Glomerular Filtration Rate Calc 61 >90 mL/min BUN/Creatinine Ratio 9.5 L 10.0-20.0 Serum Glucose 114 H 74-106 mg/dL Calcium Level 12.1 H 8.7-10.4 mg/dL Total Bilirubin 0.4 0.2-1.0 mg/dL Aspartate Amino Transferase (AST) 27 13-40 U/L Alanine Aminotransferase (ALT) 39 7-40 U/L Alkaline Phosphatase 65 46-116 U/L Total Protein 8.1 5.7-8.2 g/dL Albumin 5.4 H 3.2-4.8 g/dL X-Ray, Labs, Meds, VS Comment Imaging was reviewed by this provider, there is no obvious pathological or acute disease process. Pending radiology review Labs were reviewed by this provider, no abnormalities Vital signs reviewed by this provider, clinically stable Time of 1ST Reevaluation: 22:19 Reevaluation 1ST: Unchanged Patient Education/Counseling: Diagnosis, Treatment, Prognosis, Need For Follow Up (Follow-up with PCP in the next 2-4 days. Return to the emergency department in the next 24-48 hours if symptoms worsen.) Family Education/Counseling: No Family Present SEPSIS Sepsis Screen Vital Signs Date Time Temp Pulse Resp B/P (MAP) Pulse Ox O2 Delivery O2 Flow Rate FiO2 01/07/25 22:13 98.8 75 18 141/99 98 98.8 Laboratory Tests Test 01/07/25 23:01 White Blood Count 11.5 10^3/uL (4.4-10.8) H Departure 1 Departure Time of Disposition: 00:23 Impression: Primary Impression: Major depression Qualified Codes: F32.0 - Major depressive disorder, single episode, mild Additional Impression: Myalgia Disposition: 01 HOME / SELF CARE / HOMELESS Condition: Fair Discharged With: Self Critical Care Note Critical Care Time?: No Stability Stability form required: No I personally scribed for MANAN CERNA ([facility]) on 01/07/25 at 22:20. Electronically submitted by Taylor Esteban ([facility]). MANAN CERNA Jan 07, 2025 22:20
[2025-01-07 23:18] LABS: Hematocrit 50.6 % (41.0-53.0); Hemoglobin 17.7 g/dL (13.5-17.5); Mean Corpuscular Hemoglobin 34.5 pg (28.0-32.0); Mean Corpuscular Volume 98.6 fL (80.0-100.0); Nucleated Red Blood Cells % 0.2 %
[2025-01-07 23:36] LABS: Alanine Aminotransferase 39 U/L (7-40); Alkaline Phosphatase 65 U/L (46-116); Anion Gap 7 (5-15); BUN/Creatinine Ratio 9.5 (10.0-20.0); Bilirubin, Total 0.4 mg/dL (0.2-1.0); Blood Urea Nitrogen 13 mg/dL (9-23); Carbon Dioxide 26 mmol/L (20-31); Potassium 3.8 mmol/L (3.5-5.1); Sodium 141 mmol/L (136-145); Total Protein 8.1 g/dL (5.7-8.2)
[2025-01-07 23:38] LABS: Albumin 5.4 g/dL (3.2-4.8); Calcium 12.1 mg/dL (8.7-10.4); Chloride 108 mmol/L (98-107); Glucose 114 mg/dL (74-106)
[2025-01-08] MEDS: methylPREDNISolone SOD SUCC 125 MG/2 ML VL IM ONE (01:32)
[2025-01-08] MEDS: KETOROLAC TROMETH 30 MG/ML 1ML VIAL IM ONE (01:32)
[2025-01-08 01:36] VITALS: BP 105/68; PULSE 83; TEMP 98.4; O2SAT 96
[2025-01-08 01:37] VITALS: RESP 18
[2025-01-08] MEDS ORDERED: COLC1CAP PO (01:41)
== END 2025-01-08 03:29 | disposition home or self-care (01) ==
LOC: ER 22:06 → EDBD 22:06 → ER 01-08 03:29
DX: F32.9 Major depressive disorder, single episode, unspecified (principal); M79.18 Myalgia, other site; F17.210 Nicotine dependence, cigarettes, uncomplicated; F41.9 Anxiety disorder, unspecified; F32.A Depression, unspecified; E11.9 Type 2 diabetes mellitus without complications; I10 Essential (primary) hypertension; M10.9 Gout, unspecified; Z79.899 Other long term (current) drug therapy; Z87.442 Personal history of urinary calculi; Z79.84 Long term (current) use of oral hypoglycemic drugs; Z79.82 Long term (current) use of aspirin
CPT/HCPCS: 36415; 80053; 85025; 96372; 99284; J1885; J2919

== ENCOUNTER 2025-01-09 23:36 | Emergency (ER) | payer OTHER, MEDICAID ==
[~2025-01-09] VITALS: Ht 177.8 cm; Wt 100.0 kg
[~2025-01-09 23:36] MED LIST changes: +COLC1CAP PO
[2025-01-09 23:39] VITALS: BP 153/87; PULSE 92; RESP 18; TEMP 98.1; O2SAT 98
[2025-01-10] MEDS ORDERED: INDO50CA82 PO (02:07)
[2025-01-10] MEDS ORDERED: PRED20TA2 PO (02:07)
--- NOTE | 2025-01-10 02:07 | ED.PDOC ---
Musculoskeletal HPI Comments 54-year-old male presents to ER with complaints of bilateral great toe pain x 1 day. Patient with PMH significant for gout reports he has been experiencing 10/10 pain to bilateral great toes from "gout" x 1 day. States he has been taking allopurinol as prescribed. Patient presents to ER ambulatory on arrival, with steady gait, in no distress. Denies fever, skin changes, body aches, injury or any further symptoms/complaints Chief Complaint: Lower Extremity Time Seen by MD: 00:16 Primary Care Provider: UNKNOWN Reviewed Notes: Nurses Notes, Medications, Allergies Allergies: Coded Allergies: Thioridazine (Verified Allergy, Unknown, 04/17/24) Home Meds Active Scripts Prednisone (Prednisone) 20 Mg Tab, 20 MG PO BID for 3 Days, #6 TAB 0 Refills Prov:JOSE GILBERT 01/10/25 Indomethacin (Indomethacin) 50 Mg Cap, 1 CAP PO TID PRN, #30 CAP 0 Refills Prov:JOSE GILBERT 01/10/25 Colchicine (Colchicine) 0.6 Mg Cap, 0.6 MG PO DAILY PRN, #20 CAP Prov:MANAN CERNA 01/08/25 Hydroxyzine HCl (Hydroxyzine Hydrochloride) 10 Mg Tab, 10 MG PO TID, #30 TAB Prov:LEXX KRUEGER MD 12/28/24 Metformin Hydrochloride (Metformin Hcl) 500 Mg Tab, 1 TAB PO BID for 30 Days, #60 TAB 1 Refill Prov:MEDINA SCHWARTZ RESIDENT 04/24/24 Tamsulosin Hcl (Flomax) 0.4 Mg Cap, 0.4 MG PO QPM for 30 Days, #30 CAP 1 Refill Prov:MEDINA SCHWARTZ RESIDENT 04/24/24 Sertraline Hcl (Sertraline Hcl) 50 Mg Tab, 50 MG PO DAILY, #30 MG Prov:AME BOWENS MD 09/06/22 Reported Medications Gabapentin (Gabapentin) 600 Mg Tab, 1 TAB PO TID 12/25/24 Quetiapine Fumerate (QUETIAPINE FUMARATE) 300 Mg Tab, 1 TAB PO HS 12/25/24 Duloxetine HCl (Duloxetine HCl) 60 Mg Cap, 1 CAP PO DAILY 12/25/24 Fenofibrate (Fenofibrate) 160 Mg Tab, 1 TAB PO DAILY 12/25/24 Atorvastatin Calcium (ATORVASTATIN CALCIUM) 40 Mg Tab, 1 TAB PO HS 12/25/24 Losartan Potassium (Losartan Potassium) 25 Mg Tab, 1 TAB PO DAILY 12/25/24 Oxycodone W/ Acetaminophen (Oxycodone/Acetaminophen 10-300 mg) 1 Tab Tab 06/22/22 Aspirin (ASPIRIN 81) 81 Mg Tab, 81 MG OR DAILY, TAB 06/22/22 Trazodone Hcl (Trazodone Hcl) 50 Mg Tab, 50 MG PO DAILY, TAB 06/22/22 Information Source: Patient Mode of Arrival: EMS Past Medical History PAST MEDICAL HISTORY: Anxiety, Asthma, Depression, DM, Gout, HTN, Kidney Stones, Thyroid Surgical History: Denies all surgeries Family History Family History: Family hx of Cancer Social History Smoker: Cigarettes, Less Than 1 Pack/Day Alcohol: Denies ETOH Use Drugs: Denies Drug Use Lives In: Home Constitutional: denies: chills, diaphoresis, fatigue, fever, malaise, sweats, weakness, others EENTM: reports: others (As stated in HPI) Respiratory: denies: cough, hemoptysis, orthopnea, SOB at rest, shortness of breath, SOB with excertion, stridor, wheezing, others Cardiovascular: denies: chest pain, dizzy spells, diaphoresis, Dyspnea on exertion, edema, irregular heart beat, left arm pain, lightheadedness, palpitations, PND, syncope, others Gastrointestinal: denies: abdomen distended, abdominal pain, blood streaked bowels, constipated, diarrhea, dysphagia, difficulty swallowing, hematemesis, melena, nausea, poor appetite, poor fluid intake, rectal bleeding, rectal pain, vomiting, others Genitourinary: denies: burning, dysuria, flank pain, frequency, hematuria, incontinence, penile discharge, penile sore, pain, testicle pain, testicle swelling, urgency, others Neurological: denies: dizziness, fainting, headache, left sided numbness, left sided weakness, numbness, paresthesia, pre-existing deficit, right sided numbness, right sided weakness, seizure, speech problems, tingling, tremors, weakness, others Musculoskeletal: denies: back pain, gout, joint pain, joint swelling, muscle pain, muscle stiffness, neck pain, others Integumetry: denies: bruises, change in color, change in hair/nails, dryness, laceration, lesions, lumps, rash, wounds, others Allergic/Immunocompromised: denies: Difficulty Healing, Frequent Infections, Hives, Itching, others Hematologic/Lymphatic: denies: anemia, blood clots, easy bleeding, easy bruising, swollen glands, others Endocrine: denies: excessive hunger, excessive sweating, excessive thirst, excessive urination, flushing, intolerance to cold, intolerance to heat, unexplained weight gain, unexplained weight loss, others Psychiatric: denies: anxiety, bipolar disorder, depression, hopeless, panic disorder, schizophrenia, sleepless, suicidal, others Physical Exam General Appearance: No Apparent Distress, Obese HEENT: PERRL/EOMI Neck: Full Range of Motion, Non-Tender, Normal Respiratory: Chest Non-Tender, Lungs Clear, No Accessory Muscle Use, No Respiratory Distress, Normal Breath Sounds Cardiovascular: No Murmur, No Gallop, Regular Rate/Rhythm Breast Exam: Deferred Gastrointestinal: NOT DONE Genitalia: Deferred Pelvic: Deferred Rectal: Deferred Extremities: Normal capillary refill, Normal range of motion Musculoskeletal : Extremity Location: Great Toe (Slight TTP to bilateral first MP joints noted. No skin changes noted. Pulses intact. Gait intact without abnormality) Neurologic: Alert, demurrage man II-XII nml as Tested, No Motor Deficits, Normal Affect, Normal Mood, No Sensory Deficits Cerebellar Function: Normal Reflexes: Normal Skin: Dry, Normal Color, Warm Peripheral Pulses: 2+ dorsalis pedis (R), 2+ dorsalis pedis (L) Lymphatic: No Adenopathy Was a procedure done? Was a procedure done?: No Sedation Sedation?: No Differential Diagnosis EXT Differential Diagnosis: Cellulitis, Fracture, Dislocation, Neurovascular injury X-Ray, Labs, Meds, VS Vital Signs Date Time Temp Pulse Resp B/P (MAP) Pulse Ox O2 Delivery O2 Flow Rate FiO2 01/09/25 23:39 98.1 92 18 153/87 98 98.1 Toradol 60 mg IM ordered Solu-Medrol 125 mg IM ordered Patient had improvement in symptoms and in no distress prior to discharge Advised to follow up with PCP in 1-2 days Patient verbalized understanding and agreeable with current plan of care Advised to return to ER immediately if symptoms worsen Time of 1ST Reevaluation: 01:44 Reevaluation 1ST: N/A Patient Education/Counseling: Diagnosis, Treatment, Prognosis, Need For Follow Up Family Education/Counseling: No Family Present Departure 1 Departure Time of Disposition: 02:04 Impression: Primary Impression: Acute gout Qualified Codes: M10.9 - Gout, unspecified Disposition: 01 HOME / SELF CARE / HOMELESS Condition: Stable e-Prescriptions Prednisone (Prednisone) 20 Mg Tab 20 MG PO BID for 3 Days, #6 TAB 0 Refills Prov: JOSE GILBERT 01/10/25 Indomethacin (Indomethacin) 50 Mg Cap 1 CAP PO TID PRN, #30 CAP 0 Refills Prov: JOSE GILBERT 01/10/25 Discharged With: Self Critical Care Note Critical Care Time?: No Stability Stability form required: No Heart Score Heart Score: Heart Score Response (Comments) Value History N/A 0 EKG N/A 0 Age N/A 0 Risk Factors N/A 0 Troponin N/A 0 Total 0 JOSE GILBERT Jan 10, 2025 02:07
[2025-01-10] MEDS: methylPREDNISolone SOD SUCC 125 MG/2 ML VL IM ONE (03:17)
[2025-01-10] MEDS: KETOROLAC TROMETH 60MG/2ML VIAL IM ONE (03:17)
== END 2025-01-10 03:19 | disposition home or self-care (01) ==
LOC: EDBD 23:36 → ER 23:38
DX: M10.9 Gout, unspecified (principal); F17.210 Nicotine dependence, cigarettes, uncomplicated; F32.A Depression, unspecified; E11.9 Type 2 diabetes mellitus without complications; F41.9 Anxiety disorder, unspecified; I10 Essential (primary) hypertension; J45.909 Unspecified asthma, uncomplicated; Z79.899 Other long term (current) drug therapy; Z79.84 Long term (current) use of oral hypoglycemic drugs; Z79.82 Long term (current) use of aspirin; Z79.52 Long term (current) use of systemic steroids; Z87.440 Personal history of urinary (tract) infections
CPT/HCPCS: 96372; 99284; J1885; J2919

== ENCOUNTER 2025-01-10 17:04 | Emergency (ER) | payer OTHER, MEDICAID ==
[~2025-01-10] VITALS: Ht 175.3 cm; Wt 90.9 kg
[~2025-01-10 17:04] MED LIST changes: +INDO50CA82 PO; +PRED20TA2 PO
--- NOTE | 2025-01-10 17:24 | ED.PDOC ---
History of Present Illness HPI Comments 54-year-old male presents with a chief complaint of suicidal ideation. Patient states that he is hearing voices that are telling him to hurt himself. Patient mentions that the voices are telling him to overdose on his medications. Patient was initially here to be seen for bilateral foot pain. Patient was seen here yesterday for Gout flare-up and is homeless. Patient is requesting to be admitted to the hospital. Time Seen by MD: 17:20 Primary Care Provider: UNKNOWN Reviewed Notes: Medications, Allergies Allergies: Coded Allergies: Thioridazine (Verified Allergy, Unknown, 04/17/24) Home Meds Active Scripts Prednisone (Prednisone) 20 Mg Tab, 20 MG PO BID for 3 Days, #6 TAB 0 Refills Prov:JOSE GILBERT 01/10/25 Indomethacin (Indomethacin) 50 Mg Cap, 1 CAP PO TID PRN, #30 CAP 0 Refills Prov:JOSE GILBERT 01/10/25 Colchicine (Colchicine) 0.6 Mg Cap, 0.6 MG PO DAILY PRN, #20 CAP Prov:MANAN ECRNA 01/08/25 Hydroxyzine HCl (Hydroxyzine Hydrochloride) 10 Mg Tab, 10 MG PO TID, #30 TAB Prov:LEXX KRUEGER MD 12/28/24 Metformin Hydrochloride (Metformin Hcl) 500 Mg Tab, 1 TAB PO BID for 30 Days, # 60 TAB 1 Refill Prov:MEDINA SCHWARTZ RESIDENT 04/24/24 Tamsulosin Hcl (Flomax) 0.4 Mg Cap, 0.4 MG PO QPM for 30 Days, #30 CAP 1 Refill Prov:MEDINA SCHWARTZ RESIDENT 04/24/24 Sertraline Hcl (Sertraline Hcl) 50 Mg Tab, 50 MG PO DAILY, #30 MG Prov:AME BOWENS MD 09/06/22 Reported Medications Gabapentin (Gabapentin) 600 Mg Tab, 1 TAB PO TID 12/25/24 Quetiapine Fumerate (QUETIAPINE FUMARATE) 300 Mg Tab, 1 TAB PO HS 12/25/24 Duloxetine HCl (Duloxetine HCl) 60 Mg Cap, 1 CAP PO DAILY 12/25/24 Fenofibrate (Fenofibrate) 160 Mg Tab, 1 TAB PO DAILY 12/25/24 Atorvastatin Calcium (ATORVASTATIN CALCIUM) 40 Mg Tab, 1 TAB PO HS 12/25/24 Losartan Potassium (Losartan Potassium) 25 Mg Tab, 1 TAB PO DAILY 12/25/24 Oxycodone W/ Acetaminophen (Oxycodone/Acetaminophen 10-300 mg) 1 Tab Tab 06/22/22 Aspirin (ASPIRIN 81) 81 Mg Tab, 81 MG OR DAILY, TAB 06/22/22 Trazodone Hcl (Trazodone Hcl) 50 Mg Tab, 50 MG PO DAILY, TAB 06/22/22 Information Source: Patient Mode of Arrival: EMS Severity: Moderate Timing: Minutes Duration: Since onset 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 Past Medical History PAST MEDICAL HISTORY: Anxiety, Asthma, Depression, DM, Gout, HTN, Kidney Stones, Thyroid Surgical History: Denies all surgeries Family History Family History: Family hx of Cancer Social History Smoker: Cigarettes, Less Than 1 Pack/Day Alcohol: Denies ETOH Use Drugs: Denies Drug Use Lives In: Homeless Constitutional: denies: chills, diaphoresis, fatigue, fever, malaise, sweats, weakness, others EENTM: denies: blurred vision, double vision, ear bleeding, ear discharge, ear drainage, ear pain, ear ringing, eye pain, eye redness, hearing loss, mouth pain, mouth swelling, nasal discharge, nose bleeding, nose congestion, nose pain, photophobia, tearing, throat pain, throat swelling, voice changes, others Respiratory: denies: cough, hemoptysis, orthopnea, SOB at rest, shortness of breath, SOB with excertion, stridor, wheezing, others Cardiovascular: denies: chest pain, dizzy spells, diaphoresis, Dyspnea on exertion, edema, irregular heart beat, left arm pain, lightheadedness, palpitations, PND, syncope, others Gastrointestinal: denies: abdomen distended, abdominal pain, blood streaked bowels, constipated, diarrhea, dysphagia, difficulty swallowing, hematemesis, melena, nausea, poor appetite, poor fluid intake, rectal bleeding, rectal pain, vomiting, others Genitourinary: denies: burning, dysuria, flank pain, frequency, hematuria, incontinence, penile discharge, penile sore, pain, testicle pain, testicle swel ling, urgency, others Neurological: denies: dizziness, fainting, headache, left sided numbness, left sided weakness, numbness, paresthesia, pre-existing deficit, right sided numbness, right sided weakness, seizure, speech problems, tingling, tremors, weakness, others Musculoskeletal: denies: back pain, gout, joint pain, joint swelling, muscle pain, muscle stiffness, neck pain, others Integumetry: denies: bruises, change in color, change in hair/nails, dryness, laceration, lesions, lumps, rash, wounds, others Allergic/Immunocompromised: denies: Difficulty Healing, Frequent Infections, Hives, Itching, others Hematologic/Lymphatic: denies: anemia, blood clots, easy bleeding, easy bruising, swollen glands, others Endocrine: denies: excessive hunger, excessive sweating, excessive thirst, excessive urination, flushing, intolerance to cold, intolerance to heat, unexplained weight gain, unexplained weight loss, others Psychiatric: reports: suicidal; denies: anxiety, bipolar disorder, depression, hopeless, panic disorder, schizophrenia, sleepless, others All Other Systems: Reviewed and Negative Physical Exam General Appearance: No Apparent Distress, Normal HEENT: Normal ENT Inspection, Pharynx Normal, TMs Normal Neck: Full Range of Motion, Non-Tender, Normal, Normal Inspection Respiratory: Chest Non-Tender, Lungs Clear, No Accessory Muscle Use, No Respir atory Distress, Normal Breath Sounds Cardiovascular: No Edema, No JVD, No Murmur, No Gallop, Normal Peripheral Pulses, Regular Rate/Rhythm Breast Exam: Deferred Gastrointestinal: No Organomegaly, Non Tender, No Pulsatile Mass, Normal Bowel Sounds, Soft Genitalia: Deferred Pelvic: Deferred Rectal: Deferred Extremities: No calf tenderness, Normal capillary refill, Normal inspection, Normal range of motion, Non-tender, No pedal edema Musculoskeletal : Apperance: Normal Neurologic: Alert, hydro generation manager II-XII nml as Tested, No Motor Deficits, Normal Affect, Normal Mood, No Sensory Deficits Cerebellar Function: Normal Reflexes: Normal Skin: Dry, Normal Color, Warm Lymphatic: No Adenopathy Was a procedure done? Was a procedure done?: No Differential Dx Considerations may include: Differential diagnosis includes suicidal ideation, suicide attempt, depression, anxiety, malingering, attempt to have secondary gain, care home seeking. Patient is medically cleared, and has been resting comfortably. He is waiting for tele psych evaluation. I was signed out the patient to Dr. Johnson X-Ray, Labs, Meds, VS Vital Signs Date Time Temp Pulse Resp B/P (MAP) Pulse Ox O2 Delivery O2 Flow Rate FiO2 01/11/25 18:30 98.0 50 14 130/77 (94) 95 98.0 01/11/25 13:30 14 95 Room Air* 0 21 01/11/25 11:55 98.4 51 14 124/78 (93) 96 98.4 01/10/25 17:10 99.4 84 20 154/82 95 99.4 Lab Test 01/10/25 23:38 01/10/25 18:19 01/10/25 17:48 Range/Units POC Glucose 131 H 70-106 mg/dl Urine Opiates Screen Neg NEGATIVE Urine Fentanyl Screen Neg NEGATIVE Urine Barbiturates Screen Neg NEGATIVE Urine Phencyclidine Screen Neg NEGATIVE Urine Amphetamines Screen Neg NEGATIVE Urine Benzodiazepines Screen Neg NEGATIVE Urine Cocaine Screen Neg NEGATIVE Urine Cannabinoids Screen Neg NEGATIVE White Blood Count 8.9 4.4-10.8 10^3/uL Red Blood Count 4.82 4.5-5.90 10^6/uL Hemoglobin 16.5 13.5-17.5 g/dL Hematocrit 47.5 41.0-53.0 % Mean Corpuscular Volume 98.5 80.0-100.0 fL Mean Corpuscular Hemoglobin 34.3 H 28.0-32.0 pg Mean Corpuscular Hemoglobin Concent 34.8 32.0-36.0 g/dL Red Cell Distribution Width 13.6 11.8-14.3 % Platelet Count 391 140-450 10^3/uL Mean Platelet Volume 7.6 6.9-10.8 fL Neutrophils (%) (Auto) 74.6 37.0-80.0 % Lymphocytes (%) (Auto) 18.7 10.0-50.0 % Monocytes (%) (Auto) 6.3 0.0-12.0 % Eosinophils (%) (Auto) 0.0 0.0-7.0 % Basophils (%) (Auto) 0.4 0.0-2.0 % Neutrophils # (Auto) 6.7 1.6-8.6 10 ^3/uL Lymphocytes # (Auto) 1.7 0.4-5.4 10 ^3/uL Monocytes # (Auto) 0.6 0-1.3 10 ^3/uL Eosinophils # (Auto) 0 0-0.8 10 ^3/uL Basophils # (Auto) 0 0-0.2 10 ^3/uL Nucleated Red Blood Cells 0.1 % Sodium Level 140 136-145 mmol/L Potassium Level 4.2 3.5-5.1 mmol/L Chloride Level 107 98-107 mmol/L Carbon Dioxide Level 25 20-31 mmol/L Anion Gap 8 5-15 Blood Urea Nitrogen 20 9-23 mg/dL Creatinine 1.30 0.700-1.30 mg/dL Glomerular Filtration Rate Calc 65 >90 mL/min BUN/Creatinine Ratio 15.4 10.0-20.0 Serum Glucose 134 H 74-106 mg/dL Calcium Level 12.1 H 8.7-10.4 mg/dL Plasma/Serum Blood Alcohol 3.1 <10 mg/dL Time of 1ST Reevaluation: 17:50 Reevaluation 1ST: Unchanged Time of 2ND Reevaluation: 20:59 Reevaluation 2ND: Improved Patient Education/Counseling: Diagnosis, Treatment, Prognosis, Need For Follow Up Family Education/Counseling: Diagnosis, Treatment, Need For Follow Up SEPSIS Sepsis Screen Physician Orders Sitter 1:1 (01/10/25 17:21) Soc Telemed Psych Consult (01/10/25 17:21) * Supervisor [employer]er[employer] Consult (01/11/25 ) Vital Signs Date Time Temp Pulse Resp B/P (MAP) Pulse Ox O2 Delivery O2 Flow Rate FiO2 01/11/25 18:30 98.0 50 14 130/77 (94) 95 98.0 01/11/25 13:30 14 95 Room Air* 0 21 01/11/25 11:55 98.4 51 14 124/78 (93) 96 98.4 01/10/25 17:10 99.4 84 20 154/82 95 99.4 Laboratory Tests Test 01/10/25 17:48 White Blood Count 8.9 10^3/uL (4.4-10.8) Departure 1 Departure Time of Disposition: 12:49 Impression: Primary Impression: Suicidal ideation Additional Impression: Homelessness Disposition: 30 STILL A PATIENT Condition: Stable Critical Care Note Critical Care Time?: Yes (45 min-critical care time only) Critical care comment: Due to concerns for patients condition deteriorating, the care required my highest level of attention and readiness to intervene. I assessed the patient, reviewed the medical records, ordered the appropriate tests and treatments, then reassessed for results and responsiveness. I communicated with medical personnel and consultants and formulated a plan of care. Total critical care time excludes any procedures Stability Stability form required: No Heart Score Heart Score: Heart Score Response (Comments) Value History N/A 0 EKG N/A 0 Age N/A 0 Risk Factors N/A 0 Troponin N/A 0 Total 0 I personally scribed for JUANI VELOZ MD ([email or web address]) on 01/10/25 at 17:24. Electronically submitted by Felipe Dean ([email or web address]). JUANI VELOZ MD Jan 10, 2025 17:24
[2025-01-10 18:15] LABS: Hematocrit 47.5 % (41.0-53.0); Hemoglobin 16.5 g/dL (13.5-17.5); Mean Corpuscular Hemoglobin 34.3 pg (28.0-32.0); Mean Corpuscular Volume 98.5 fL (80.0-100.0); Nucleated Red Blood Cells % 0.1 %
[2025-01-10 18:16] LABS: Potassium 4.2 mmol/L (3.5-5.1); Sodium 140 mmol/L (136-145)
[2025-01-10 18:17] LABS: Anion Gap 8 (5-15); Carbon Dioxide 25 mmol/L (20-31)
[2025-01-10 18:22] LABS: BUN/Creatinine Ratio 15.4 (10.0-20.0); Blood Urea Nitrogen 20 mg/dL (9-23)
[2025-01-10 18:24] LABS: Calcium 12.1 mg/dL (8.7-10.4); Chloride 107 mmol/L (98-107); Glucose 134 mg/dL (74-106)
[2025-01-10 18:48] LABS: Amphetamine Screen, Urine Neg (NEGATIVE)
[2025-01-10 18:49] LABS: Opiate Scree,Urine Neg (NEGATIVE)
[2025-01-10 18:55] LABS: Barbiturate Scree,Urine Neg (NEGATIVE); Benzodiazephine Screen, Urine Neg (NEGATIVE); Cannabinoid Screen, Urine Neg (NEGATIVE); Cocaine Screen, Urine Neg (NEGATIVE); Phencyclidine Screen, Urine Neg (NEGATIVE)
[2025-01-10] MEDS: IBUPROFEN 400 MG TAB PO ONE (23:30)
--- NOTE | 2025-01-11 00:11 | DVHINCON2 ---
Date of Service if different f: Jan 11, 2025 Time of Service: 00:09 Consult Consult Note PSYCHIATRY ED NEW CONSULT HPI: 54 yo pt with PPH of depression and anxiety presents to ED BIBA for safety, psychiatric stabilization and possible med initiation/optimization in setting of ongoing foot pain, depression, and passive SI. Psychiatry consulted for safety evaluation and recommendations in context of current presentation. Of note, pt w/ recent ED visits for similar CC/presentation Per pt, reports over past several weeks experiencing ongoing depressed mood, hopelessness, helplessness, negative thoughts, isolation, loss of interest, CAH to hurt self, decreased energy, amotivation and non-specific anxiety symptoms. Also intermittent SI that are fleeting, earlier had plan to OD on pain meds although no intent. Reports some interference with daily functioning. Reports primary stress as recent/ongoing excruciating shoulder/testicular/foot pain that's radiating for past several months and passing of his GF from cancer late last year. No overt manic, psychotic, cognitive, dissociative phenomena, panic, or somatic symptoms noted. Pt currently does not have psychiatrist/therapist out in community although has sought outpt MH services in past. Currently rx'd Buspar 15 mg bid, Duloxetine 30 mg bid, quetiapine 50 mg qhs, and Gabapentin 600 mg tid, remains overall med compliant but minimal therapeutic effects although c/o diaphoresis 2/2 gabapent in, does have hx of med noncompliance. Prior psych meds include abilify, effexor, trazodone. Denies self medicating mood symptoms with ETOH, THC or IDU Never , no children, unemployed, lives with friend, no legal issues, limited support system noted Unknown trauma hx. Unknown FH No acute medical issues although complains of diffuse body aches, ongoing shoulder/foot pain and multiple chronic medical issues. Denies hx of seizures/TBI, or recent head injuries, NKDA Does have hx of suicide attempts primarily via OD x 2 resulting in prior psych hospitalizations including most recent admission at [facility] earlier this year for SI. Denies history of violence, unprovoked aggression, or assaultive behaviors. Denies recent hx of impulsivity, attention seeking behaviors, anger outbursts, emotional dysregulation, mood reactivity or engaging in risky behaviors. Does not have access to firearms. Currently endorses passive SI and AH MSE: General Appearance/Behavior: Alert and awake; appears older than stated age, overweight/obese, fair grooming and hygiene; intermittently tearful, calm and cooperative, no PMA/PMR Speech: coherent, rrr Thought Process: linear, logical, bit hopeless Thought Content: Abnormal Thoughts and Perceptions: None Homicidality / Violent Thoughts: denies HI Suicidality: passive SI Hallucinations: +AH Delusions: denies paranoia, persecutory, or grandiose delusions Obsessions /compulsions : None Judgment and Insight: fair/questionable judgment with somewhat fair insight Mood & Affect: "still depressed" with mood-congruent, bit labile, appropriate Orientation: oriented to person, place, time Attention/Concentration: appears intact Memory: grossly intact Language: no unusual or inappropriate language A/P: 54 yo pt with PPH of depression and anxiety presents to ED BIBA for safety, psychiatric stabilization and possible med initiation/optimization in setting of ongoing foot pain, depression, and passive SI. Of note, pt w/ recent ED visits for similar CC/presentation Pt is currently expressing some SI and CAH in context of several recent life stressors and acute/ongoing shoulder/testicular/foot and body pain (see hpi) - pt may have underlying somatoform disorder. Limited protective factors presently. No outpt MH services at present. Pt agrees to talk with staff instead of acting on any suicidal feelings while in ED. Thus, acute risk is low/moderate and hence is appropriate for inpatient psychiatry admission. Pt will benefit from inpatient psych admission for safety, psychiatric st abilization and possible medication optimization. Pt willing to transfer to inpt psych hospitalization voluntarily. Consider 5150 hold for DTS ONLY if needed for transfer or if no voluntary beds are available Primary Diagnosis: Adjustment disorder with depressed mood. Depressive disorder unspecified. R/o Somatoform disorder Recommend vol transfer to inpt psych facility for higher level of care 1:1 sitter is not recommended Recommend continuing current outpt med regimen - Buspar 15 mg bid, Duloxetine 30 mg bid, quetiapine 50 mg qhs, and Gabapentin 600 mg tid - first dose of all meds now Defer any med changes/adjustments to inpt psych facility Risks/benefits/alternative treatments discussed, informed consent provided by pt If patient later refuses voluntary hospitalization/requests to be discharged from ED prior to transfer, pt can be discharged WITHOUT a psych reassessment or 5150 evaluation Pt verbalized understanding and is receptive to above tx plan This case was discussed with ED nurse/provider and all parties in agreement with above tx plan Leonardo Khan MD Plan discussed with: Patient LEONARDO KHAN MD Jan 11, 2025 00:11
[2025-01-11 13:30] VITALS: RESP 14; O2SAT 95
[2025-01-11 18:30] VITALS: BP 130/77; PULSE 50; RESP 14; TEMP 98; O2SAT 95
== END 2025-01-11 15:34 | disposition short-term general hospital (02) ==
LOC: EDBD 17:04 → ER 17:04
DX: R45.851 Suicidal ideations (principal); F41.9 Anxiety disorder, unspecified; E11.9 Type 2 diabetes mellitus without complications; I10 Essential (primary) hypertension; J45.909 Unspecified asthma, uncomplicated; Z59.00 Homelessness unspecified; Z79.899 Other long term (current) drug therapy
CPT/HCPCS: 36415; 80048; 80307; 80320; 82947; 82962; 85025

== ENCOUNTER 2025-01-28 13:38 | Emergency (ER) | payer OTHER, MEDICAID ==
[~2025-01-28] VITALS: Ht 170.2 cm; Wt 90.0 kg
--- NOTE | 2025-01-28 14:38 | ED.PDOC ---
History of Present Illness HPI Comments 54-year-old male brought by paramedics because he was complaining of left arm pain since 4:00 a.m.. Woke him up from his sleep. Denies any trauma to the arm. He is able to move his extremities without any difficulty. History of hypertension diabetes gout hyper cholesterol. No sign of any acute process. Denies any other symptoms. Chief Complaint: Upper Extremity Time Seen by MD: 13:46 Primary Care Provider: UNKNOWN Reviewed Notes: Nurses Notes, Medications, Allergies Allergies: Coded Allergies: Thioridazine (Verified Allergy, Unknown, 04/17/24) Home Meds Active Scripts Prednisone (Prednisone) 20 Mg Tab, 20 MG PO BID for 3 Days, #6 TAB 0 Refills Prov:JOSE GILBERT 01/10/25 Indomethacin (Indomethacin) 50 Mg Cap, 1 CAP PO TID PRN, #30 CAP 0 Refills Prov:JOSE GILBERT 01/10/25 Colchicine (Colchicine) 0.6 Mg Cap, 0.6 MG PO DAILY PRN, #20 CAP Prov:MANAN CERNA 01/08/25 Hydroxyzine HCl (Hydroxyzine Hydrochloride) 10 Mg Tab, 10 MG PO TID, #30 TAB Prov:LEXX KRUEGER MD 12/28/24 Metformin Hydrochloride (Metformin Hcl) 500 Mg Tab, 1 TAB PO BID for 30 Days, #60 TAB 1 Refill Prov:MEDINA SCHWARTZ RESIDENT 04/24/24 Tamsulosin Hcl (Flomax) 0.4 Mg Cap, 0.4 MG PO QPM for 30 Days, #30 CAP 1 Refill Prov:MEDINA SCHWARTZ RESIDENT 04/24/24 Sertraline Hcl (Sertraline Hcl) 50 Mg Tab, 50 MG PO DAILY, #30 MG Prov:AME BOWENS MD 09/06/22 Reported Medications Gabapentin (Gabapentin) 600 Mg Tab, 1 TAB PO TID 12/25/24 Quetiapine Fumerate (QUETIAPINE FUMARATE) 300 Mg Tab, 1 TAB PO HS 12/25/24 Duloxetine HCl (Duloxetine HCl) 60 Mg Cap, 1 CAP PO DAILY 12/25/24 Fenofibrate (Fenofibrate) 160 Mg Tab, 1 TAB PO DAILY 12/25/24 Atorvastatin Calcium (ATORVASTATIN CALCIUM) 40 Mg Tab, 1 TAB PO HS 12/25/24 Losartan Potassium (Losartan Potassium) 25 Mg Tab, 1 TAB PO DAILY 12/25/24 Oxycodone W/ Acetaminophen (Oxycodone/Acetaminophen 10-300 mg) 1 Tab Tab 06/22/22 Aspirin (ASPIRIN 81) 81 Mg Tab, 81 MG OR DAILY, TAB 06/22/22 Trazodone Hcl (Trazodone Hcl) 50 Mg Tab, 50 MG PO DAILY, TAB 06/22/22 Information Source: Patient, Emergency Med Personnel Mode of Arrival: EMS Severity: Mild Timing: Hours Duration: Since onset Past Medical History PAST MEDICAL HISTORY: Anxiety, Asthma, Depression, DM, Gout, HTN, Kidney Stones, Thyroid Surgical History: Denies all surgeries Family History Family History: Family hx of Cancer Social History Smoker: Cigarettes, Less Than 1 Pack/Day Alcohol: Denies ETOH Use Drugs: Denies Drug Use Lives In: Homeless Constitutional: denies: chills, diaphoresis, fatigue, fever, malaise, sweats, weakness, others EENTM: denies: blurred vision, double vision, ear bleeding, ear discharge, ear drainage, ear pain, ear ringing, eye pain, eye redness, hearing loss, mouth pain, mouth swelling, nasal discharge, nose bleeding, nose congestion, nose pain, photophobia, tearing, throat pain, throat swelling, voice changes, others Respiratory: denies: cough, hemoptysis, orthopnea, SOB at rest, shortness of breath, SOB with excertion, stridor, wheezing, others Cardiovascular: denies: chest pain, dizzy spells, diaphoresis, Dyspnea on exertion, edema, irregular heart beat, left arm pain, lightheadedness, palpitations, PND, syncope, others Gastrointestinal: denies: abdomen distended, abdominal pain, blood streaked bowels, constipated, diarrhea, dysphagia, difficulty swallowing, hematemesis, melena, nausea, poor appetite, poor fluid intake, rectal bleeding, rectal pain, vomiting, others Genitourinary: denies: burning, dysuria, flank pain, frequency, hematuria, incontinence, penile discharge, penile sore, pain, testicle pain, testicle swelling, urgency, others Neurological: denies: dizziness, fainting, headache, left sided numbness, left sided weakness, numbness, paresthesia, pre-existing deficit, right sided numbness, right sided weakness, seizure, speech problems, tingling, tremors, weakness, others Musculoskeletal: reports: muscle pain (Left upper extremity); denies: back pain, gout, joint pain, joint swelling, muscle stiffness, neck pain, others Integumetry: denies: bruises, change in color, change in hair/nails, dryness, laceration, lesions, lumps, rash, wounds, others Allergic/Immunocompromised: denies: Difficulty Healing, Frequent Infections, Hives, Itching, others Hematologic/Lymphatic: denies: anemia, blood clots, easy bleeding, easy bruising, swollen glands, others Endocrine: denies: excessive hunger, excessive sweating, excessive thirst, excessive urination, flushing, intolerance to cold, intolerance to heat, unexplained weight gain, unexplained weight loss, others Psychiatric: denies: anxiety, bipolar disorder, depression, hopeless, panic disorder, schizophrenia, sleepless, suicidal, others Physical Exam General Appearance: Moderate Distress HEENT: Normal ENT Inspection, Pharynx Normal, TMs Normal Neck: Full Range of Motion, Non-Tender, Normal, Normal Inspection Respiratory: Chest Non-Tender, Lungs Clear, No Accessory Muscle Use, No Respiratory Distress, Normal Breath Sounds Cardiovascular: No Edema, No JVD, No Murmur, No Gallop, Normal Peripheral Pulses, Regular Rate/Rhythm Breast Exam: Deferred Gastrointestinal: No Organomegaly, Non Tender, No Pulsatile Mass, Normal Bowel Sounds, Soft Genitalia: Deferred Pelvic: Deferred Rectal: Deferred Extremities: No calf tenderness, Normal capillary refill, Normal inspection, Normal range of motion, Non-tender, No pedal edema Musculoskeletal : Apperance: Normal Neurologic: Alert, environment coordinator II-XII nml as Tested, No Motor Deficits, Normal Affect, Normal Mood, No Sensory Deficits Cerebellar Function: Normal Reflexes: Normal Skin: Dry, Normal Color, Warm Peripheral Pulses: 3+ Radial (R), 3+ Radial (L) Lymphatic: No Adenopathy Was a procedure done? Was a procedure done?: No Differential Dx Considerations may include: Muscle strain Anxiety X-Ray, Labs, Meds, VS Vital Signs Date Time Temp Pulse Resp B/P (MAP) Pulse Ox O2 Delivery O2 Flow Rate FiO2 01/28/25 13:51 98.5 88 16 125/79 96 98.5 Patient alert. Complaining of muscle pain. No sign of distress. Vitals stable. Ambulating. On examination no sign of any distress. No bruising. Possible anxiety. No gout flare-up. No leg swelling. No chest pain. No discoloration. Pristine physical examination. Was given Toradol. Explained to the patient. Was told to follow up with his primary care physician. Was told to come back if there is any problem. Time of 1ST Reevaluation: 14:36 Reevaluation 1ST: Improved Patient Education/Counseling: Diagnosis, Treatment, Prognosis, Need For Follow Up Family Education/Counseling: No Family Present SEPSIS Sepsis Screen Date sepsis recognized/suspect: Jan 28, 2025 Time Sepsis recognized/suspect: 1351 Recent Procedure: No On Antibiotic Therapy: No Respiratory Rate >20: No Heart Rate >90: No Temp<36 C (96.8 F) or >38.3 C: No SBP <90 or MAP <65 mmHG: No New Acute Mental Status Change: No Is the patient on CPAP, BIPAP,: No Physician Orders Ketorolac Injection (Toradol Injection) (01/28/25 14:45) Vital Signs Date Time Temp Pulse Resp B/P (MAP) Pulse Ox O2 Delivery O2 Flow Rate FiO2 01/28/25 13:51 98.5 88 16 125/79 96 98.5 Departure 1 Departure Time of Disposition: 14:38 Impression: Primary Impression: Musculoskeletal pain Disposition: 01 HOME / SELF CARE / HOMELESS Condition: Good Discharged With: Self Critical Care Note Critical Care Time?: No Stability Stability form required: No Heart Score Heart Score: Heart Score Response (Comments) Value History N/A 0 EKG N/A 0 Age N/A 0 Risk Factors N/A 0 Troponin N/A 0 Total 0 MAIRA PETERSON MD Jan 28, 2025 14:38
[2025-01-28] MEDS ORDERED: KETOROLAC TROMETH 60MG/2ML VIAL IM ONE (14:45)
[2025-01-28] MEDS: MORPHINE SULFATE INJ 2 MG/ml SYRG IM ONE (15:18)
[2025-01-28] MEDS: ONDANSETRON HCL 4 MG/2 ML VIAL IM ONE (15:19)
[2025-01-28 15:44] VITALS: TEMP 98; O2SAT 98
[2025-01-28 16:38] VITALS: BP 142/89; PULSE 87; RESP 16
== END 2025-01-28 16:38 | disposition home or self-care (01) ==
LOC: ER 13:38 → EDBD 13:38 → ER 16:38
DX: M79.18 Myalgia, other site (principal); F41.9 Anxiety disorder, unspecified; J45.909 Unspecified asthma, uncomplicated; E11.9 Type 2 diabetes mellitus without complications; F17.210 Nicotine dependence, cigarettes, uncomplicated; F32.A Depression, unspecified; I10 Essential (primary) hypertension; Z59.00 Homelessness unspecified; Z79.899 Other long term (current) drug therapy
CPT/HCPCS: 96372; 99284; J2270; J2405